=== PATIENT | female | born 1955 | race Caucasian/White ===

== ENCOUNTER → 2018-06-25 12:56 | Outpatient (CLI) | payer OTHER, SELFPAY ==
[2017-05-16 18:04] VITALS: BMI 39.7
--- NOTE | 2018-06-25 13:01 | RAD_ITS ---
STUDY: X-RAY - PARANASAL SINUSES REASON FOR EXAM: Female, 62 years old. 3 week history of sinus congestion. TECHNIQUE: 3 view(s) of the paranasal sinuses were obtained. COMPARISON: None. FINDINGS: Partial opacification of the frontal sinus worse on the right side. Partial opacification of the maxillary sinuses worse on the right side. Normal visualized facial bones. The soft tissue structures are unremarkable. RAD/Sinuses min 3 Views IMPRESSION: Bilateral frontal and maxillary sinusitis. Worse on the right side. Electronically Signed: Tim Jenkins MD at 13:19 EST Tel [phone], Service support ,
--- NOTE | 2018-06-25 13:01 | RAD_ITS ---
STUDY: X-RAY CHEST REASON FOR EXAM: Female, 62 years old. 3 week history of congestion and cold. TECHNIQUE: PA and lateral views of the chest. COMPARISON: Comparison is made with prior study dated September 11, 2010. FINDINGS: The lungs are clear and expanded. Scattered calcified granulomas. There is no demonstrated pleural abnormality. Normal size heart. Normal mediastinum and eduarda. Normal visualized pulmonary arteries. There is atherosclerotic calcification of the aortic arch with tortuosity. There are diffuse degenerative changes of the visualized thoracic spine. Normal visualized ribs, clavicles, and shoulders. Surgical clips are seen in the right upper quadrant in keeping with prior cholecystectomy. RAD/Chest PA and Lateral IMPRESSION: Scattered calcified granulomas. No acute abnormality is seen. Electronically Signed: Tim Jenkins MD at 13:20 EST Tel [phone], Service support ,
--- OUTSIDE RECORDS SUMMARY | 2018-08-20 16:42 | XMS RPT_ITS ---
:1955 Author Organization OHIP Care Team Providers Name Role Phone Kateryna Medina Attending Unavailable Kateryna Medina Referring Unavailable Adam, Kateryna Primary Care Unavailable Serge Santoyo Admitting Unavailable Serge Santoyo Attending Unavailable Serge Santoyo Referring Unavailable Adam, Kateryna Primary Care Unavailable Alan Wu Attending Unavailable Alan Wu Referring Unavailable Shawnaiff, Kateryna Primary Care Unavailable Louis Rey Attending Unavailable Louis Rey Referring Unavailable Adam, Kateryna Primary Care Unavailable Nathan Bear Attending Unavailable Srege Santoyo Referring Unavailable PROBLEMS PROBLEMS DATE TYPE CONDITION / CODE ATTENDING STATUS SOURCE Unknown R94.31 - Abnormal MoodisNathan borja Active [place] 8 electrocardiogram [facility] [ECG] [EKG] / Hospital R94.31(ICD-10) Repository Unknown R09.81 - Nasal Ran[place], Active [place] 8 congestion / [facility] R09.81(ICD-10) Hospital Repository Unknown J98.01 - Acute Ranney, Active [place] 8 bronchospasm / [facility] J98.01(ICD-10) Hospital Repository PROCEDURES PROCEDURES No Procedure Records FoundRESULTS RESULTS OPERATIVE REPORT Observed: 07/14/2018 Status: F Source: [place] 1:06 PM [facility] REPOSITORY [facility] Medical Records Department [address] [place] [address] Operative Report 07/14/18 1302 MR#: [id number] Acct: [id number] Name: MARNI PETERSON Rep #: [id number] : 1955 62 From: Serge Santoyo MD PCP: Kateryna Medina MD Status: ADM IN Location: [place] [address] Report of Operation Date of Procedure: 07/14/18 Pre-Operative Diagnosis: Left knee primary osteoarthritis Post-Operative Diagnosis: Left knee primary osteoarthritis Surgery/Procedure Performed:: Left total knee arthroplasty, press-fit cruciate retaining Description of Surgical Findings:: Stable knee with good patella tracking food sanitarian: Paulo Sykes Type of Anesthesia:: Spinal Anesthesiologist: Rodolfo Skinner Special Medications: 2 g Ancef, 1 g TXA at incision, 1 g TXA closure, 10 mg Decadron, joint cocktail (5 mg Duramorph, 30 mL of 0.5% Ropivicaine, 1000 units of epinephrine, 30 mg of Toradol) Specimen's removed: BOny cuts Estimated Blood Loss (mL): 25 Fluids Replaced: 700 milliliters crystalloid Description of Procedure: Implants used: 1. [place] size 4 press-fit triathlon cruciate retaining distal femoral component 2. Dipti size 4 press-fit tibial baseplate 3. Dipti X3 9 mm CS polyethylene 4. [place] X3 32 mm asymmetric patella Brief history operative indications: 62-year-old F with history of left knee osteoarthritis with radiographic findings with loss of joint space, osteophyte formation and subchondral sclerosis. Failed conservative measures as mentioned in the H AND P. Discussion of total knee arthroplasty as well as risk and benefits were discussed the patient including but not limited to blood loss, DVTs, PEs, neurovascular damage, general risk of anesthesia including loss of life, and stiffness or instability were discussed with patient. Patient demonstrated understanding and was able to sign informed consent. Procedure: On the date of procedure patient's left lower extremity was marked in the preoperative area. The patient was then taken back to the operating room where the patient was placed on the table in the supine position. All bony prominences were identified a well-padded. Anesthesia assumed control of the C-spine and airway and remained controlled throughout the remainder of the procedure. A tourniquet was placed on the left upper thigh and the leg was prepped in a sterile fashion. The surgeon then scrubbed at this time .Upon reentering the room left lower extremity was draped in a standard orthopedic fashion. A timeout was then called and everyone agreed upon the side, the site, the procedure to be performed, patient's identity and antibiotics given. Esmarch bandage was used to exsanguinate the extremity and the tourniquet was placed up to 250 mmHg with the knee in flexion. A midline skin incision was made and sharp dissection was taken down through skin subcutaneous tissue and fat. The standard medial parapatellar incision was made and the patella was subluxed laterally. The standard deep MCL release was done and the fat pad was resected. Next our attention was directed to the femur. Navigation pins were placed, navigation was registered. The distal femoral cutting block was pinned into place and 9 mm of distal femur resection was completed. The distal femoral cut was verified with navigation. The knee was then placed in deep flexion in the standard SemaConnect sizing guide was used to place the femoral component in 3 external rotation based on the posterior condyles. A size 4 4-in-1 cutting block was selected and pinned into place. The anterior cut was then made and checked for notching. The subsequent anterior chamfer cuts, posterior condylar cuts and posterior chamfer cuts were made while ensuring the MCL and LCL were protected. Our attention was then turned to the tibia where the TagSeats tibial cutting guide was used to make the appropriate tibial cut 90 degrees from the mechanical axis. Navigation was then used to verify the cut. A size 4 tibial base plate was selected. the knee was flexed to 90 degrees and the soft tissues and posterior osteophytes were removed from the joint. 40 cc of the periarticular injection was injected into the posterior medial corner of the joint. The appropriate trials were then placed on the femur and tibia. A trial polyethylene was trialed to ensure proper balancing and stability of the knee. Patella tracking, was then verified and corrected appropriately as needed. The appropriate tibial internal rotation was then marked with a bovie. Our attention was then directed to the patella. The patella was everted and a flat resection was made. The lug holes were drilled and the patella trial was placed. Patellar tracking was checked and deemed appropriate. Once we were happy lug holes were drilled for the femur and trial components were removed. Cement was mixed at this time and the tourniquet was let down the tibia was subluxed and pinned into place and the keel was punched and the canal was reamed. Final components were verified and opened, and cement was mixed in a vacuum. SemaConnect Simplex cement was used. The wound was copiously irrigated with normal saline. When the cement was ready the press-fit components were impacted into place starting with the tibia, femur and finally the patella cemented into place. The trial poly component was placed and the knee was placed in full extension. All excess cement was removed in the process. Once the cement had cured the tracking, alignment and balance were verified and a size 9 mm polyethylene component was placed. Once the final components were placed the wound was copiously irrigated with normal saline solution and the periarticular injection was given. The wound was closed in a layer frost fashion using #1 vicryl interrupted sutures for the arthrotomy, 2-0 interrupted Vicryl suture for the subcuticular layer and fletcher for final skin closure. A sterile compressive dressing was then placed. The patient was then awakened from anesthesia, [place] to the [place] and transferred to the PACU for recovery. Post op plan DVT ppx: ASA 81mg, thigh high compression stockings Follow up: in office in 2 weeks for wound check PT: to start POD #0 at hospital, outpatient PT should be arranged. My physician cardiovascular physician assistant was a vital part of this case. He was important in appropriate retraction during the case, and protection of soft tissues during bony cuts. His intimate knowledge of the case and my steps aided in safe and expedient completion of the procedure as well as appropriate position of the leg during the case. He was also vital in assisting with closure under my direct supervision. Grafts/Implants Used: Dipti press-fit triathlon - Complications NONE - Admit VTE Documentation VTE Present on Admission: No VTE Mechan Device Prophylaxis: SCD's, Thigh High YONNY Hose VTE Pharm Prophylaxis ordered?: Yes 07/14/18 1306 <Electronically signed by Serge Santoyo MD> Date Serge Santoyo MD CC: Kateryna Medina MD; Serge Santoyo MD Signed KNEE 1 OR 2 VIEWS Observed: 07/14/2018 Status: F Source: RANDI 7:15 AM [facility] REPOSITORY [facility] Imaging Services [address] [place] [address] Knee 1 or 2 Views MR#: [id number] Acct: [id number] Name: MARNI PETERSON Rep #: [id number] : 1955 F 62 From: Tim Jenkins MD PCP: Kateryna Medina MD Status: ADM IN Study: Knee 1 or 2 Views Date of Exam: 07/14/18 Exam# [id number] Ordering Dr: Serge Santoyo MD STUDY: X-RAY - LEFT KNEE REASON FOR EXAM: Female, 62 years old. Status post left knee replacement. TECHNIQUE: AP and lateral view(s) of the knee. COMPARISON: None. FINDINGS: The patient is status post total knee replacement. There is good alignment. Postoperative soft tissue changes. RAD/Knee 1 or 2 Views IMPRESSION: Status post total knee replacement. There is good alignment. Postoperative soft tissue changes. Electronically Signed: Tim Jenkins MD at 14:28 EST Tel [phone], Service support , CC: Kateryna Medina MD; Serge Santoyo MD Software Engineer Web Applications: Signed Observed: 07/01/2018 Status: F Source: RANDI CULTURE, NOSE 9:50 AM [facility] REPOSITORY Gram Stain Gram Stain Rare White Blood Cells No organisms seen Nasoph. Cult No Haemophilus, Streptococcus pneumoniae, beta-hemolytic Streptococcus or Staphylococcus aureus isolated. Performed By: #### M100.0900 #### [facility] [address] [facility] [place], [address] 12 LEAD ELECTROCARDIOGRAM Observed: 06/30/2018 Status: F Source: RANDI 3:26 PM [facility] REPOSITORY [facility] Cardiovascular Services [address] [place] [address] EKG - VTC 06/29/18 1140 MR#: [id number] Acct: [id number] Name: MARNI PETERSON Rep #: [id number] : 1955 62 From: Nathan Bear MD Attending Dr: Serge Santoyo MD Status: PRE IN Ordering Dr: Serge Santoyo MD Date: 06/29/18 Location: [facility] Sex: F C Admitted: Test Reason : Blood Pressure : / mmHG Vent. Rate : 075 BPM Atrial Rate : 075 BPM P-R Int : 192 ms QRS Dur : 104 ms QT Int : 372 ms P-R-T Axes : 038 -53 048 degrees QTc Int : 415 ms Normal sinus rhythm Left axis deviation Cannot exclude precordial lead misplacement Consider repeat ECG Abnormal ECG Confirmed by CHEMA MORALES, NATHAN ([id number]), assistant editor ROXANA CHATMAN ([id number]) on 06/30/2018 3:26:36 PM Referred By: Serge Santoyo Confirmed By:NATHAN BEAR MD 06/30/18 1526 Date Nathan Bear MD CC: Kateryna Medina MD; Serge Santoyo MD Date Dictated: 06/29/18 1140 Date Transcribed: 06/29/18 1140 Software Engineer Web Applications: Signed HISTORY AND PHYSICAL Observed: 06/29/2018 Status: F Source: [place] EXAM 11:30 PM [facility] REPOSITORY [facility] Medical Records Department [address] [place] [address] History and Physical 06/29/18 2330 MR#: [id number] Acct: [id number] Name: MARNI PETERSON Rep #: [id number] : 1955 62 From: Paulo Sykes PA-C PCP: Kateryna Medina MD Status: PRE IN Y Location: [facility] History and Physical DATE OF SURGERY: 07/14/2018 SCHEDULED PROCEDURE: left total knee arthroplasty HISTORY OF PRESENT ILLNESS: This is a 62-year-old female who has been having ongoing pain in her left knee for several years. Pain can reach as high as a 10/10. Her pain is constant, aching, and sharp. She has increased pain going up and down stairs, sitting for extended periods of time, and walking any amount of distance. Patient states she has difficult time with activities of daily living including leisure activity such as walking, going to [employer], crafting, going to [employer]. She has increased pain with anything that requires physical activity. Patient feels unsafe going up and down ladders. She has tried ice and elevation and heat with minimal to no relief. She has had previous corticosteroid injection with no relief in symptoms. Patient has tried physical therapy with no relief in symptoms. She has tried pediatric care coordinator without any relief. Patient has been on oral medications consisting of Tylenol with no relief in symptoms. Patient has also tried nonsteroidal anti-inflammatories without relief. Patient denies any previous surgery on her left knee. She currently denies chest pain or recent fevers. Patient has been dealing with upper respiratory illness in which she has seen her primary care physician. She has been on antibiotics with no relief in symptoms. She was currently given an prednisone injection and states she is now starting to see improvements. Her primary care physician has ordered chest x-ray and sinus x-ray. She will be following up with her primary care physician. After failing conservative measures and discussing all treatment options with Dr. Serge Santoyo, the patient would like proceed with a left total knee arthroplasty. REVIEW OF SYSTEMS: ROS: Const: Reports vision problems, denies anorexia, anxiety, change in appetite, fever and weight change,hard of hearing. CV: Denies chest pain, heart murmur, irregular heartbeat and peripheral vascular disease. Resp: Denies asthma, cough, pneumonia, sleep apnea, shortness of breath, tuberculosis and wheezing. GI: Reports constipation, diarrhea, dysphagia and heartburn, but denies nausea, bloody stools and vomiting, and difficulty swallowing. : Reports amenorrhea. Denies incontinence. Musculo: Reports trouble walking, but denies leg swelling and weakness and limp. Skin: Denies Raynaud's, history of shingles and tattoo. Neuro: Reports dizziness and numbness/tingling but denies ambulatory dysfunction and tremor. Psych: Denies anxiety, depression, insomnia, mental illness and stress. Avni/Lymph: Denies anemia, bleeding/bruising tendency and past transfusion. Reviewed, no changes. PAST MEDICAL HISTORY: Advance Care Plan: Other Directive, UNSURE WHICH SHE DID POA OR LIVING WILL Effective Date: 04/10/2018 PMH: Medical Problems: Arthritis, Fibromyalgia, High Blood Pressure, Sodgrens Syndrome Accidents: Fracture - 11-19-06 LT ANKLE, Jul 1988-sprained RT ANKLE Surgical Hx: Tubal Ligation - (1985) [place]i Gallbladder, Appendectomy Anesthesia Complications: None Assistive Devices: Glasses Reviewed and updated. 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 Personal Habits: Smoking: Patient has never smoked.Cigarette Use: Never.Smokeless Tobacco: Never Used Smokeless Tobacco.Alcohol: Occasionally.Drug Use: Denies Use.Enjoy Exercising: Exercises 1-3 x/month. Reviewed, no changes. VITALS: Ht: 65 Wt: 247lb Wt k.039 BMI: 41.1 BP: 136/84 Pulse: 86 Resp: 20 T: 95.2 T: 35.1C ALLERGIES: Codeine - Nausea MEDICATIONS: Doxepin HCL 75 mg 1 po qdAY, Amitriptyline 50 mg 1 po qdAY, Propranolol HCL 80 mg 1 by mouth every day, Metronidazole 0.75 % aad, Halobetasol Propionate 0.05 % aad PRE-OP EXAM: General appearance:NORMAL Other: Eyes: Conjunctivae and lids: NORMAL Pupils: ERR Ears, Nose, Mouth, and Throat: NORMAL Other: Inspection of lips, teeth and gums: NORMAL Other: Neck: Examination of neck: no masses noted. Respiratory: Assessment of respiratory effort: NORMAL Other: Auscultation of lungs: clear to auscultation no wheezes, rhonchi or rales. Cardiovascular: Auscultation of heart: regular rate and rhythm, no murmurs, gallops or rubs. Exam of carotid arteries: NORMAL Other: Gastrointestinal: Exam of abdomen: soft, nontender, nondistended bowel sounds present. PHYSICAL EXAMINATION: Patient does walk with an antalgic gait. She has tenderness to palpation of the medial and lateral joint line of the left knee. Left knee range of motion lacks 5 of full extension to 105 of flexion with increased pain and crepitus. Patient has partial correctable varus alignment. Sensation intact to light touch. Neurovascularly intact. IMAGING STUDIES: X-rays of the left knee revealed varus deformity with complete loss of medial joint space with subchondral sclerosis and osteophyte formation consistent with severe osteoarthritis. IMPRESSION: 1. Severe left knee osteoarthritis 2. Fibromyalgia 3. Hypertension 4. Sjogren's syndrome PLAN: Dr. Serge Santoyo did discuss and review with the patient all treatment options including surgical versus nonsurgical options. Patient does wish to proceed with the above-stated procedure. Potential risks, benefits, and complications of the procedure were discussed in detail including but not limited to , infection, nerve and blood vessel damage, persistent pain, numbness, tingling, paresthesias, blood clot, pulmonary embolism, and requirement for possible further surgery. The patient expressed full understanding and has no further questions for the doctor. Patient does agree to proceed with the above-stated procedure and has signed the surgery consent form. Patient is going to be following up with her primary care physician for surgical clearance with regards to her upper respiratory illness. She has had a recent chest x-ray and sinus x-ray. If patient is not able to get surgical clearance we will postpone surgery. This dictation was created using voice recognition software. Phonetic and/or grammatical errors may exist.. ___ I have re-examined the patient. There are no clinical changes since date of exam. ___ See progress notes for changes. ___ Dictated on admission Date: Time: Signature: 06/29/18 2330 <Electronically signed by Paulo Sykes PA-C> Date Paulo Sykes PA-C Cosigner Signature: Date (if applicable) CC: Kateryna Medina MD; Paulo PAYAN Signed CBC W/DIFF, AUTOMATED Collected: 06/29/2018 Status: F Source: [place] 11:49 AM [facility] REPOSITORY TYPE CODE TESTS RESULT OUT OF RANGE REFERENCE UNITS LAB L100.1000 4.4-11.0 K/mm3 Normal WBC 7.9 LAB L100.1200 4.2-5.4 M/mm3 Normal RBC 4.78 LAB L100.1300 12.0-15.0 g/dl Normal HGB 14.1 LAB L100.1400 37-47 % Normal HCT 43.9 LAB L100.1500 81-99 fL Normal MCV 91.8 LAB L100.1600 27.0-32.0 pg Normal MCH 29.5 LAB L100.1700 32-36 g/gl Normal MCHC 32.1 LAB L100.1810 11.6-14.6 % Normal RDW CV 12.7 LAB L100.1820 35.1-43.9 fl Normal RDW SD 43.0 LAB L100.1900 150-450 K/mm3 Normal PLT 283 LAB L100.2000 6.2-12.0 fl Normal MPV 9.6 LAB L100.2100 47-70 % Normal NEUT% 60.4 LAB L100.2200 19-41 % Normal LY% 29.5 LAB L100.2300 0-10 % Normal MONO% 8.7 LAB L100.2400 0-5 % Normal EO% 1.0 LAB L100.2500 0-1 % Normal BASO% 0.4 LAB L100.2550 0.0-0.9 % Normal IM GRAN % 0.000 Result Comment: IG% - Immature Granulocytes (promyelocytes, myelocytes and metamyelocytes) > 1% indicates that a LEFT SHIFT is Present. LAB L100.2620 2.0-7.7 X10 3/uL Normal Absolute Neut 4.8 LAB L100.2720 0.83-4.51 X10 3/ul Normal Absolute Lymph 2.34 Performed By: #### L100.0100 #### [facility] [address] [place], [address] BASIC METABOLIC Collected: 06/29/2018 Status: F Source: [place] PROFILE ([facility]) 11:49 AM [facility] REPOSITORY TYPE CODE TESTS RESULT OUT OF RANGE REFERENCE UNITS LAB L501.0100 74-106 mg/dL Normal GLU 75 Result Comment: Please note revised GLUCOSE reference range effective 2017. LAB L501.1000 7-18 mg/dL Normal BUN 15 LAB L501.1100 0.55-1.02 mg/dL Normal CREAT,SERUM 0.70 Result Comment: The validity of the calculated GFR AND GFRAA in patients over 70 years has not been determined. Clinical correlation is essential. LAB L501.1110 >60 mL/min Normal EST GFR 90 Result Comment: Non- GFR Calc LAB L501.1115 >60 mL/min Normal EST GFR - AA 108 Result Comment: GFR Calc LAB L501.1255 ml/min Normal Estimated CRCL 74.02 LAB L501.1300 10-20 RATIO High BUN/CRE 21.4 LAB L501.2200 8.5-10 mg/dL Normal .1 CA 9.4 LAB L501.5300 136-14 mmol/L Normal 5 NA 139 LAB L501.5600 3.5-5. mmol/L Normal 1 K 4.1 LAB L501.5900 98-107 mmol/L Normal CL 100 LAB L501.6100 21.0-3 mmol/L Normal 2.0 CO2 29.0 LAB L501.6200 5-15 Normal GAP 10 Performed By: #### L500.2500 #### [facility] [address] [place], [address] Observed: 06/29/2018 Status: F Source: [place] MRSA/SAID SCREEN 11:49 AM [facility] REPOSITORY MRSA/SAID SCRN S. AUREUS S. aureus Negative MRSA MRSA Negative Performed By: #### M100.651 #### [facility] [address] [place], [address] SINUSES MIN 3 VIEWS Observed: 06/25/2018 Status: F Source: [place] 1:02 PM [facility] REPOSITORY [facility] Imaging Services [address] [facility] [address] Sinuses min 3 Views MR#: [id number] Acct: [id number] Name: MARNI PETERSON Rep #: [id number] : 1955 F 62 From: Tim Jenkins MD PCP: Kateryna Medina MD Status: REG CLI Study: Sinuses min 3 Views Date of Exam: 06/25/18 Exam# [id number] Ordering Dr: Delfino Wu MD STUDY: X-RAY - PARANASAL SINUSES REASON FOR EXAM: Female, 62 years old. 3 week history of sinus congestion. TECHNIQUE: 3 view(s) of the paranasal sinuses were obtained. COMPARISON: None. FINDINGS: Partial opacification of the frontal sinus worse on the right side. Partial opacification of the maxillary sinuses worse on the right side. Normal visualized facial bones. The soft tissue structures are unremarkable. RAD/Sinuses min 3 Views IMPRESSION: Bilateral frontal and maxillary sinusitis. Worse on the right side. Electronically Signed: Tim Jenkins MD at 13:19 EST Tel [phone], Service support , CC: Kateryna Medina MD; Alan Wu MD Software Engineer Web Applications: Signed CHEST PA AND LATERAL Observed: 06/25/2018 Status: F Source: [place] 1:02 PM [facility] REPOSITORY [facility] Imaging Services [address] [place] [address] Chest PA and Lateral MR#: [id number] Acct: [id number] Name: MARNI PETERSON Rep #: [id number] : 1955 F 62 From: Tim Jenkins MD PCP: Kateryna Medina MD Status: REG CLI Study: Chest PA and Lateral Date of Exam: 06/25/18 Exam# [id number] Ordering Dr: Delfino Wu MD STUDY: X-RAY CHEST REASON FOR EXAM: Female, 62 years old. 3 week history of congestion and cold. TECHNIQUE: PA and lateral views of the chest. COMPARISON: Comparison is made with prior study dated September 11, 2010. FINDINGS: The lungs are clear and expanded. Scattered calcified granulomas. There is no demonstrated pleural abnormality. Normal size heart. Normal mediastinum and eduarda. Normal visualized pulmonary arteries. There is atherosclerotic calcification of the aortic arch with tortuosity. There are diffuse degenerative changes of the visualized thoracic spine. Normal visualized ribs, clavicles, and shoulders. Surgical clips are seen in the right upper quadrant in keeping with prior cholecystectomy. RAD/Chest PA and Lateral IMPRESSION: Scattered calcified granulomas. No acute abnormality is seen. Electronically Signed: Tim Jenkins MD at 13:20 EST Tel [phone], Service support , CC: Kateryna Medina MD; Alan Wu MD Software Engineer Web Applications: Signed SCREENING MAMM (CAD), Observed: 08/15/2017 Status: F Source: [place] BILAT 7:56 AM [facility] REPOSITORY [facility] Imaging Services [address] [place] [address] SCREENING MAMM (CAD), BILAT MR#: [id number] Acct: [id number] Name: MARNI PETERSON Rep #: [id number] : 1955 F 61 From: Tim Jenkins MD PCP: Kateryna Medina MD Status: REG CLI Study: SCREENING MAMM (CAD), BILAT Date of Exam: 08/15/17 Exam# [id number] Ordering Dr: Kateryna Medina MD MAMMOGRAPHY - BILATERAL SCREENING REASON FOR EXAM: Female, 61 years old. Routine annual screening examination. PERTINENT HISTORY: Non-contributory. TECHNIQUE: Digital bilateral breast janet (3D mammographic acquisition) in the CC and MLO projections. 2-D mediolateral oblique (MLO) and craniocaudad (CC) views of both breasts were obtained. CAD: Full Field Digital Mammography with Computer Added Detection was performed. COMPARISON: Comparison is made with prior study dated June 04, 2016 and April 04, 2015. FINDINGS: Breast Composition: The breasts are almost entirely fatty. There are no dominant masses or suspicious calcifications. Stable benign appearing bilateral axillary lymph nodes. No other significant abnormalities are identified. There has been no significant change since the prior study. HPBI/SCREENING MAMM (CAD), BILAT IMPRESSION: Stable bilateral screening mammogram. Yearly follow-up mammogram recommended. (A) ASSESSMENT CATEGORY: BIRADS Category 2: Benign. A letter regarding these results will be sent to the patient by the facility within 30 days. Approximately 10% of breast cancers are not detected by mammography. A normal mammogram should not delay biopsy of a clinically suspicious abnormality. [id number] Electronically Signed: Tim Jenkins MD at 13:15 EST Tel [phone], Service support , CC: Kateryna Medina MD Software Engineer Web Applications: Signed ALLERGIES ALLERGIES DATE TYPE / CODE NAME / CODE REACTION SEVERITY SOURCE 07/14/2018 Drug tetracaine/F CONTACT Unknown Randi [facility] Allergy/4160 [id number]([facility] 14826(SNOMED NORM) Repository CT) 07/14/2018 Drug benzocaine/F CONTACT Unknown [facility] Allergy/4160 [id number]([facility] 92665(SNOMED NORM) Repository CT) 07/14/2018 Drug procaine/F00 CONTACT Unknown [place] [facility] Allergy/4160 [id number](RXNO [facility]ERMATITIS [facility] 83719(SNOMED RM) Repository CT) 06/29/2018 Drug codeine/F006 Nausea/Vom/[facility]h [facility] 307188([facility] 08597(SNOMED M) Repository CT) ENCOUNTERS ENCOUNTERS ADMIT/DISCHARGE ACCOUNT ADMITTING ENCOUNTER LOCATION SOURCE NUMBER CLASS 07/14/2018 [id number] Natanael, Inpatient Randi [place] 9 Serge Encounter [facility] ing:NQ1Rkyi: Repository [id number]: 1 07/01/2018 [id number] Ambulatory Randi [place] 8 [facility] ing:LABSPEC Repository 06/29/2018 [id number] Ambulatory BMSBuilding:W [place] 4 [facility] Repository 06/25/2018 [id number] Ambulatory Randi Randi 2 [facility] ing:MTRAD Repository 08/15/2017 [id number] Ambulatory Randi Randi 1 [facility] ing:BI Repository PAYERS PAYERS ENCOUNTER GUARANTOR PAYER SUBSCRIBER SOURCE 07/14/2018 RADHA Stoll Randi [id number] Insurance:Darby BURK: [facility] [place]: [id number] [id number] Repository [address]Gms: 330) Date:2084-08-14PF [phone] () [id number], [place] [address]PI: 07/14/2018 Secondary NOT GIVENUNK Randi Insurance:SELF PAY [facility]: Effective Repository Date:2018-06-02 07/01/2018 RADHA Au Primary MARNI Bryan [id number] Insurance:CIGNAPolicy HENERYDOB: [place]: [id number] [id number] Repository [address]Naf: (330) Date:5445-15-99DI [phone] () [id number], [place] [address]CE: 07/01/2018 Secondary NOT GIVENUNK [place] Insurance:SELF PAY [facility] Number: Effective Repository Date:2018-07-01 06/29/2018 RADHA Au Primary MARNI Stoll [place] [id number] Insurance:CIGNAPolicy HENERYDOB: [facility] Number: [id number] [id number] Repository [address]Evl: (330) Date:7635-30-98QS [phone] () 523896MTKMSIEMSBI, [place] [address]CU: 06/29/2018 Secondary NOT GIVENUNK Randi Insurance:SELF PAY [facility] Number: Effective Repository Date:2018-06-29 06/25/2018 RADHA Au Primary MARNI Bryan [id number] Insurance:CIGNAPolicy HENERYDOB: [facility] Number: [id number] [id number] Repository [address]Vib: (330) Date:9289-33-06LP [phone] () [id number], [place] [address]BA: 06/25/2018 Secondary NOT GIVENUNK [place] Insurance:SELF PAY [facility] Number: Effective Repository Date:2018-06-25 08/15/2017 Radha Au Primary MARNI Bryan [id number] Insurance:CIGNAPolicy HENERYDOB: [facility] Number: [id number] [id number] Repository [address]Asp: Date:3869-49-86DK [phone] [id number], [place] 2 ([place]) [address]WP: 08/15/2017 Secondary NOT GIVENUNK [place] Insurance:SELF PAY [facility] Number: Effective Repository Date:2017-07-10
== END ==
PROVIDERS: Family Provider Family Medicine; PCP Family Medicine; Referring Provider Family Medicine; Visit Provider Family Medicine
DX: J98.01 Acute bronchospasm (principal); R09.81 Nasal congestion
CPT/HCPCS: 70220; 71046

== ENCOUNTER → 2018-07-01 15:39 | Outpatient (CLI) | payer OTHER, SELFPAY ==
[2018-06-29 11:11] VITALS: BMI 41.2
== END ==
PROVIDERS: Family Provider Family Medicine; PCP Family Medicine; Referring Provider Otolaryngology Otolaryngology/Facial Plastic Surgery; Visit Provider Otolaryngology Otolaryngology/Facial Plastic Surgery
DX: J32.9 Chronic sinusitis, unspecified (principal)
CPT/HCPCS: 87070; 87205

== ENCOUNTER 2018-07-14 10:10 | Inpatient (IN) | payer OTHER, SELFPAY ==
[2018-06-29 11:11] VITALS: BP 127/81; PULSE 78; RESP 16; TEMP 36.7; O2SAT 94; BMI 41.2
[2018-06-29 12:34] LABS: Absolute Lymphocyte Count 2.34 X10^3/ul (0.83-4.51); Absolute Neutrophil Count 4.8 X10^3/uL (2.0-7.7); Basophil# 0.03 X10^3/uL; Basophil% 0.4 % (0-1); Eosinophil# 0.08 X10^3/uL; Hematocrit 43.9 % (37-47); Hemoglobin 14.1 g/dl (12.0-15.0); Lymphocyte # 2.34 X10^3/ul (4.0); Lymphocyte % 29.5 % (19-41); Mean Corp Hgb Conc 32.1 g/gl (32-36); Mean Corpuscular Hgb 29.5 pg (27.0-32.0); Mean Corpuscular Volume 91.8 fL (81-99); Mean Platelet Vol. 9.6 fl (6.2-12.0); Monocyte# 0.69 X10^3/uL; Monocyte% 8.7 % (0-10); Neutrophil # 4.79 X10^3/uL (2.7-7.7); Neutrophil % 60.4 % (47-70); Platelet Count 283 K/mm3 (150-450); RBC Distribution Width CV 12.7 % (11.6-14.6); Red Blood Count 4.78 M/mm3 (4.2-5.4); White Blood Count 7.9 K/mm3 (4.4-11.0)
[2018-06-29 12:38] LABS: POSITIVE COUNT NO; POSITIVE DIFFERENTIAL NO; POSITIVE MORPHOLOGY NO
[2018-06-29 13:03] LABS: Anion Gap 10 (5-15); BUN 15 mg/dL (7-18); BUN/Creat Ratio 21.4 RATIO (10-20); Calcium,Total 9.4 mg/dL (8.5-10.1); Chloride 100 mmol/L (98-107); EST Glomerular Filtration Rate 90 mL/min (>60); Est Glom Filt Rate - Afr Amer 108 mL/min (>60); Estimated Creatinine Clearance 74.02 ml/min; Glucose 75 mg/dL (74-106); Potassium 4.1 mmol/L (3.5-5.1); Sodium Level 139 mmol/L (136-145)
--- NOTE | 2018-06-29 15:41 | SDCEKG_ITS ---
Test Reason : Blood Pressure : / mmHG Vent. Rate : 075 BPM Atrial Rate : 075 BPM P-R Int : 192 ms QRS Dur : 104 ms QT Int : 372 ms P-R-T Axes : 038 -53 048 degrees QTc Int : 415 ms Normal sinus rhythm Left axis deviation Cannot exclude precordial lead misplacement Consider repeat ECG Abnormal ECG Confirmed by CHEMA MORALES, MICHELLE ([id number]), news editor ROXANA CHATMAN ([id number]) on 06/30/2018 3:26:36 PM Referred By: Sereg Santoyo Confirmed By:MICHELLE BEAR MD
--- NOTE | 2018-06-29 23:30 | HP.PCM_ITS ---
History and Physical DATE OF SURGERY: 07/14/2018 SCHEDULED PROCEDURE: left total knee arthroplasty HISTORY OF PRESENT ILLNESS: This is a 62-year-old female who has been having ongoing pain in her left knee for several years. Pain can reach as high as a 10/10. Her pain is constant, aching, and sharp. She has increased pain going up and down stairs, sitting for extended periods of time, and walking any amount of distance. Patient states she has difficult time with activities of daily living including leisure activity such as walking, going to [employer], crafting, going to [employer]. She has increased pain with anything that requires physical activity. Patient feels unsafe going up and down ladders. She has tried ice and elevation and heat with minimal to no relief. She has had previous corticosteroid injection with no relief in symptoms. Patient has tried physical therapy with no relief in symptoms. She has tried home care consultant without any relief. Patient has been on oral medications consisting of Tylenol with no relief in symptoms. Patient has also tried nonsteroidal anti-inflammatories without relief. Patient denies any previous surgery on her left knee. She currently denies chest pain or recent fevers. Patient has been dealing with upper respiratory illness in which she has seen her primary care physician. She has been on antibiotics with no relief in symptoms. She was currently given an prednisone injection and states she is now starting to see improvements. Her primary care physician has ordered chest x-ray and sinus x-ray. She will be following up with her primary care physician. After failing conservative measures and discussing all treatment options with Dr. Serge Santoyo, the patient would like proceed with a left total knee arthroplasty. REVIEW OF SYSTEMS: ROS: Const: Reports vision problems, denies anorexia, anxiety, change in appetite, fever and weight change,hard of hearing. CV: Denies chest pain, heart murmur, irregular heartbeat and peripheral vascular disease. Resp: Denies asthma, cough, pneumonia, sleep apnea, shortness of breath, tuberculosis and wheezing. GI: Reports constipation, diarrhea, dysphagia and heartburn, but denies nausea, bloody stools and vomiting, and difficulty swallowing. : Reports amenorrhea. Denies incontinence. Musculo: Reports trouble walking, but denies leg swelling and weakness and limp. Skin: Denies Raynaud's, history of shingles and tattoo. Neuro: Reports dizziness and numbness/tingling but denies ambulatory dysfunction and tremor. Psych: Denies anxiety, depression, insomnia, mental illness and stress. Avni/Lymph: Denies anemia, bleeding/bruising tendency and past transfusion. Reviewed, no changes. PAST MEDICAL HISTORY: Advance Care Plan: Other Directive, UNSURE WHICH SHE DID POA OR LIVING WILL Effective Date: 04/10/2018 PMH: Medical Problems: Arthritis, Fibromyalgia, High Blood Pressure, Sodgrens Syndrome Accidents: Fracture - 11-19-06 LT ANKLE, Jul 1988-sprained RT ANKLE Surgical Hx: Tubal Ligation - (1985) [place] Gallbladder, Appendectomy Anesthesia Complications: None Assistive Devices: Glasses Reviewed and updated. 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 Personal Habits: Smoking: Patient has never smoked.Cigarette Use: Never.Smokeless Tobacco: Never Used Smokeless Tobacco.Alcohol: Occasionally.Drug Use: Denies Use.Enjoy Exercising: Exercises 1-3 x/month. Reviewed, no changes. VITALS: Ht: 65 Wt: 247lb Wt k.039 BMI: 41.1 BP: 136/84 Pulse: 86 Resp: 20 T: 95.2 T: 35.1C ALLERGIES: Codeine - Nausea MEDICATIONS: Doxepin HCL 75 mg 1 po qdAY, Amitriptyline 50 mg 1 po qdAY, Propranolol HCL 80 mg 1 by mouth every day, Metronidazole 0.75 % aad, Halobetasol Propionate 0.05 % aad PRE-OP EXAM: General appearance:NORMAL Other: Eyes: Conjunctivae and lids: NORMAL Pupils: ERR Ears, Nose, Mouth, and Throat: NORMAL Other: Inspection of lips, teeth and gums: NORMAL Other: Neck: Examination of neck: no masses noted. Respiratory: Assessment of respiratory effort: NORMAL Other: Auscultation of lungs: clear to auscultation no wheezes, rhonchi or rales. Cardiovascular: Auscultation of heart: regular rate and rhythm, no murmurs, gallops or rubs. Exam of carotid arteries: NORMAL Other: Gastrointestinal: Exam of abdomen: soft, nontender, nondistended bowel sounds present. PHYSICAL EXAMINATION: Patient does walk with an antalgic gait. She has tenderness to palpation of the medial and lateral joint line of the left knee. Left knee range of motion lacks 5 of full extension to 105 of flexion with increased pain and crepitus. Patient has partial correctable varus alignment. Sensation intact to light touch. Neurovascularly intact. IMAGING STUDIES: X-rays of the left knee revealed varus deformity with complete loss of medial joint space with subchondral sclerosis and osteophyte formation consistent with severe osteoarthritis. IMPRESSION: 1. Severe left knee osteoarthritis 2. Fibromyalgia 3. Hypertension 4. Sjogren's syndrome PLAN: Dr. Serge Santoyo did discuss and review with the patient all treatment options including surgical versus nonsurgical options. Patient does wish to proceed with the above-stated procedure. Potential risks, benefits, and complications of the procedure were discussed in detail including but not limited to , infection, nerve and blood vessel damage, persistent pain, numbness, tingling, paresthesias, blood clot, pulmonary embolism, and requirement for possible further surgery. The patient expressed full understanding and has no further questions for the doctor. Patient does agree to proceed with the above-stated procedure and has signed the surgery consent form. Patient is going to be following up with her primary care physician for surgical clearance with regards to her upper respiratory illness. She has had a recent chest x-ray and sinus x-ray. If patient is not able to get surgical clearance we will postpone surgery. This dictation was created using voice recognition software. Phonetic and/or grammatical errors may exist.. ___ I have re-examined the patient. There are no clinical changes since date of exam. ___ See progress notes for changes. ___ Dictated on admission Date: Time: Signature:
[2018-07-14] VITALS (11 sets, daily range): BP systolic 113–146; BP diastolic 65–97; PULSE 64–86; RESP 16–78; TEMP 36–37; O2SAT 93–98; BMI 41.2; BMI 42.5; BMI 42.6
--- NOTE | 2018-07-14 07:13 | RAD_ITS ---
STUDY: X-RAY - LEFT KNEE REASON FOR EXAM: Female, 62 years old. Status post left knee replacement. TECHNIQUE: AP and lateral view(s) of the knee. COMPARISON: None. FINDINGS: The patient is status post total knee replacement. There is good alignment. Postoperative soft tissue changes. RAD/Knee 1 or 2 Views IMPRESSION: Status post total knee replacement. There is good alignment. Postoperative soft tissue changes. Electronically Signed: Tim Jenkins MD at 14:28 EST Tel [phone], Service support ,
[2018-07-14] MEDS: Acetaminophen 500 MG Tablet 1000 MG PO ×2 (11:01→20:31)
[2018-07-14] MEDS: Celecoxib 200 MG Capsule 400 MG PO (11:01)
[2018-07-14] MEDS: Lactated Ringers 1,000 ML 999 ML IV ×2 (11:55→15:01)
[2018-07-14] MEDS: Cefazolin 2 GM in 0.9% Normal Saline 100 ML IV (12:00)
--- NOTE | 2018-07-14 13:02 | PCM.OPRPT ---
Report of Operation Date of Procedure: 07/14/18 Pre-Operative Diagnosis: Left knee primary osteoarthritis Post-Operative Diagnosis: Left knee primary osteoarthritis Surgery/Procedure Performed:: Left total knee arthroplasty, press-fit cruciate retaining Description of Surgical Findings:: Stable knee with good patella tracking associate [employer]: Paulo Sykes Type of Anesthesia:: Spinal Anesthesiologist: Rodolfo Skinner Special Medications: 2 g Ancef, 1 g TXA at incision, 1 g TXA closure, 10 mg Decadron, joint cocktail (5 mg Duramorph, 30 mL of 0.5% Ropivicaine, 1000 units of epinephrine, 30 mg of Toradol) Specimen's removed: BOny cuts Estimated Blood Loss (mL): 25 Fluids Replaced: 700 milliliters crystalloid Description of Procedure: Implants used: 1. Dipti size 4 press-fit triathlon cruciate retaining distal femoral component 2. Dipti size 4 press-fit tibial baseplate 3. Dipti X3 9 mm CS polyethylene 4. [place] X3 32 mm asymmetric patella Brief history operative indications: 62-year-old F with history of left knee osteoarthritis with radiographic findings with loss of joint space, osteophyte formation and subchondral sclerosis. Failed conservative measures as mentioned in the H&P. Discussion of total knee arthroplasty as well as risk and benefits were discussed the patient including but not limited to blood loss, DVTs, PEs, neurovascular damage, general risk of anesthesia including loss of life, and stiffness or instability were discussed with patient. Patient demonstrated understanding and was able to sign informed consent. Procedure: On the date of procedure patient's left lower extremity was marked in the preoperative area. The patient was then taken back to the operating room where the patient was placed on the table in the supine position. All bony prominences were identified a well-padded. Anesthesia assumed control of the C-spine and airway and remained controlled throughout the remainder of the procedure. A tourniquet was placed on the left upper thigh and the leg was prepped in a sterile fashion. The surgeon then scrubbed at this time .Upon reentering the room left lower extremity was draped in a standard orthopedic fashion. A timeout was then called and everyone agreed upon the side, the site, the procedure to be performed, patient's identity and antibiotics given. Esmarch bandage was used to exsanguinate the extremity and the tourniquet was placed up to 250 mmHg with the knee in flexion. A midline skin incision was made and sharp dissection was taken down through skin subcutaneous tissue and fat. The standard medial parapatellar incision was made and the patella was subluxed laterally. The standard deep MCL release was done and the fat pad was resected. Next our attention was directed to the femur. Navigation pins were placed, navigation was registered. The distal femoral cutting block was pinned into place and 9 mm of distal femur resection was completed. The distal femoral cut was verified with navigation. The knee was then placed in deep flexion in the standard [employer] sizing guide was used to place the femoral component in 3? external rotation based on the posterior condyles. A size 4 4-in-1 cutting block was selected and pinned into place. The anterior cut was then made and checked for notching. The subsequent anterior chamfer cuts, posterior condylar cuts and posterior chamfer cuts were made while ensuring the MCL and LCL were protected. Our attention was then turned to the tibia where the [employer] Simplified tibial cutting guide was used to make the appropriate tibial cut 90 degrees from the mechanical axis. Navigation was then used to verify the cut. A size 4 tibial base plate was selected. the knee was flexed to 90 degrees and the soft tissues and posterior osteophytes were removed from the joint. 40 cc of the periarticular injection was injected into the posterior medial corner of the joint. The appropriate trials were then placed on the femur and tibia. A trial polyethylene was trialed to ensure proper balancing and stability of the knee. Patella tracking, was then verified and corrected appropriately as needed. The appropriate tibial internal rotation was then marked with a bovie. Our attention was then directed to the patella. The patella was everted and a flat resection was made. The lug holes were drilled and the patella trial was placed. Patellar tracking was checked and deemed appropriate. Once we were happy lug holes were drilled for the femur and trial components were removed. Cement was mixed at this time and the tourniquet was let down the tibia was subluxed and pinned into place and the keel was punched and the canal was reamed. Final components were verified and opened, and cement was mixed in a vacuum. [place] Simplex cement was used. The wound was copiously irrigated with normal saline. When the cement was ready the press-fit components were impacted into place starting with the tibia, femur and finally the patella cemented into place. The trial poly component was placed and the knee was placed in full extension. All excess cement was removed in the process. Once the cement had cured the tracking, alignment and balance were verified and a size 9 mm polyethylene component was placed. Once the final components were placed the wound was copiously irrigated with normal saline solution and the periarticular injection was given. The wound was closed in a layer frost fashion using #1 vicryl interrupted sutures for the arthrotomy, 2-0 interrupted Vicryl suture for the subcuticular layer and fletcher for final skin closure. A sterile compressive dressing was then placed. The patient was then awakened from anesthesia, transferred to the [place] and transferred to the PACU for recovery. Post op plan DVT ppx: ASA 81mg, thigh high compression stockings Follow up: in office in 2 weeks for wound check PT: to start POD #0 at hospital, outpatient PT should be arranged. My physician team assistant was a vital part of this case. He was important in appropriate retraction during the case, and protection of soft tissues during bony cuts. His intimate knowledge of the case and my steps aided in safe and expedient completion of the procedure as well as appropriate position of the leg during the case. He was also vital in assisting with closure under my direct supervision. Grafts/Implants Used: [place] press-fit triathlon - Complications NONE - Admit VTE Documentation VTE Present on Admission: No VTE Mechan Device Prophylaxis: SCD's, Thigh High YONNY Hose VTE Pharm Prophylaxis ordered?: Yes
--- NOTE | 2018-07-14 13:06 | OP.PCM_ITS ---
Report of Operation Date of Procedure: 07/14/18 Pre-Operative Diagnosis: Left knee primary osteoarthritis Post-Operative Diagnosis: Left knee primary osteoarthritis Surgery/Procedure Performed:: Left total knee arthroplasty, press-fit cruciate retaining Description of Surgical Findings:: Stable knee with good patella tracking supervisor [employer]: Paulo Sykes Type of Anesthesia:: Spinal Anesthesiologist: Rodolfo Skinner Special Medications: 2 g Ancef, 1 g TXA at incision, 1 g TXA closure, 10 mg Decadron, joint cocktail (5 mg Duramorph, 30 mL of 0.5% Ropivicaine, 1000 units of epinephrine, 30 mg of Toradol) Specimen's removed: BOny cuts Estimated Blood Loss (mL): 25 Fluids Replaced: 700 milliliters crystalloid Description of Procedure: Implants used: 1. Dipti size 4 press-fit triathlon cruciate retaining distal femoral component 2. Dipti size 4 press-fit tibial baseplate 3. Dipti X3 9 mm CS polyethylene 4. [place] X3 32 mm asymmetric patella Brief history operative indications: 62-year-old F with history of left knee osteoarthritis with radiographic findings with loss of joint space, osteophyte formation and subchondral sclerosis. Failed conservative measures as mentioned in the H&P. Discussion of total knee arthroplasty as well as risk and benefits were discussed the patient including but not limited to blood loss, DVTs, PEs, neurovascular damage, general risk of anesthesia including loss of life, and stiffness or instability were discussed with patient. Patient demonstrated understanding and was able to sign informed consent. Procedure: On the date of procedure patient's left lower extremity was marked in the preoperative area. The patient was then taken back to the operating room where the patient was placed on the table in the supine position. All bony prominences were identified a well-padded. Anesthesia assumed control of the C-spine and airway and remained controlled throughout the remainder of the procedure. A tourniquet was placed on the left upper thigh and the leg was prepped in a sterile fashion. The surgeon then scrubbed at this time .Upon reentering the room left lower extremity was draped in a standard orthopedic fashion. A timeout was then called and everyone agreed upon the side, the site, the procedure to be performed, patient's identity and antibiotics given. Esmarch bandage was used to exsanguinate the extremity and the tourniquet was placed up to 250 mmHg with the knee in flexion. A midline skin incision was made and sharp dissection was taken down through skin subcutaneous tissue and fat. The standard medial parapatellar incision was made and the patella was subluxed laterally. The standard deep MCL release was done and the fat pad was resected. Next our attention was directed to the femur. Navigation pins were placed, navigation was registered. The distal femoral cutting block was pinned into place and 9 mm of distal femur resection was completed. The distal femoral cut was verified with navigation. The knee was then placed in deep flexion in the standard [employer] sizing guide was used to place the femoral component in 3? external rotation based on the posterior condyles. A size 4 4-in-1 cutting block was selected and pinned into place. The anterior cut was then made and checked for notching. The subsequent anterior chamfer cuts, posterior condylar cuts and posterior chamfer cuts were made while ensuring the MCL and LCL were protected. Our attention was then turned to the tibia where the [employer] tibial cutting guide was used to make the appropriate tibial cut 90 degrees from the mechanical axis. Navigation was then used to verify the cut. A size 4 tibial base plate was selected. the knee was flexed to 90 degrees and the soft tissues and posterior osteophytes were removed from the joint. 40 cc of the periarticular injection was injected into the posterior medial corner of the joint. The appropriate trials were then placed on the femur and tibia. A trial polyethylene was trialed to ensure proper balancing and stability of the knee. Patella tracking, was then verified and corrected appropriately as needed. The appropriate tibial internal rotation was then marked with a bovie. Our attention was then directed to the patella. The patella was everted and a flat resection was made. The lug holes were drilled and the patella trial was placed. Patellar tracking was checked and deemed appropriate. Once we were happy lug holes were drilled for the femur and trial components were removed. Cement was mixed at this time and the tourniquet was let down the tibia was subluxed and pinned into place and the keel was punched and the canal was reamed. Final components were verified and opened, and cement was mixed in a vacuum. [place] Simplex cement was used. The wound was copiously irrigated with normal saline. When the cement was ready the press-fit components were impacted into place starting with the tibia, femur and finally the patella cemented into place. The trial poly component was placed and the knee was placed in full extension. All excess cement was removed in the process. Once the cement had cured the tracking, alignment and balance were verified and a size 9 mm polyethylene component was placed. Once the final components were placed the wound was copiously irrigated with normal saline solution and the periarticular injection was given. The wound was closed in a layer frost fashion using #1 vicryl interrupted sutures for the arthrotomy, 2-0 interrupted Vicryl suture for the subcuticular layer and fletcher for final skin closure. A sterile compressive dressing was then placed. The patient was then awakened from anesthesia, transferred to the [place] and transferred to the PACU for recovery. Post op plan DVT ppx: ASA 81mg, thigh high compression stockings Follow up: in office in 2 weeks for wound check PT: to start POD #0 at hospital, outpatient PT should be arranged. My physician assistant front office manager was a vital part of this case. He was important in appropriate retraction during the case, and protection of soft tissues during bony cuts. His intimate knowledge of the case and my steps aided in safe and expedient completion of the procedure as well as appropriate position of the leg during the case. He was also vital in assisting with closure under my direct supervision. Grafts/Implants Used: [place] press-fit triathlon - Complications NONE - Admit VTE Documentation VTE Present on Admission: No VTE Mechan Device Prophylaxis: SCD's, Thigh High YONNY Hose VTE Pharm Prophylaxis ordered?: Yes
[2018-07-14] MEDS: Scopolamine 1mg/72hr Patch 1 PATCH TD (14:54)
[2018-07-14] MEDS: Morphine 2 MG/ML Syringe IV (16:01)
[2018-07-14] MEDS: Ondansetron 4 MG/2 ML Vial IV (16:02)
[2018-07-14] MEDS: Lactated Ringers 1,000 ML 125 ML IV (16:05)
[2018-07-14] MEDS: Ketorolac 15 MG/ML Vial IV (18:41)
[2018-07-14] MEDS: oxyCODONE 5 MG Tablet PO (18:41)
[2018-07-14] MEDS: Cefazolin 1 GM/50 ML BAG IV (20:27)
[2018-07-14] MEDS: Amitriptyline 25 MG Tablet 75 MG PO (20:29)
[2018-07-14] MEDS: Propranolol LA 80 MG Capsule PO (20:29)
[2018-07-14] MEDS: Senna/Docusate Sodium 1 Tablet 2 TABLET PO (20:30)
[2018-07-14] MEDS: Doxepin Hcl 25 MG Capsule 75 MG PO (20:31)
[2018-07-15] MEDS: oxyCODONE 5 MG Tablet PO ×5 (02:01→22:07)
[2018-07-15] MEDS: 0.9% NaCl Peripheral Flush Adult/Peds IV ×2 (02:01→08:03)
[2018-07-15] MEDS: Ketorolac 15 MG/ML Vial IV ×2 (02:01→08:03)
[2018-07-15 02:06] VITALS: BP 120/66; PULSE 67; RESP 18; TEMP 36.4; O2SAT 98
[2018-07-15] MEDS: Cefazolin 1 GM/50 ML BAG IV (04:59)
[2018-07-15] MEDS: Acetaminophen 500 MG Tablet 1000 MG PO ×3 (05:10→22:07)
[2018-07-15 06:24] LABS: Hematocrit 36.4 % (37-47); Hemoglobin 11.5 g/dl (12.0-15.0); Mean Corp Hgb Conc 31.6 g/gl (32-36); Mean Corpuscular Hgb 29.9 pg (27.0-32.0); Mean Corpuscular Volume 94.8 fL (81-99); Mean Platelet Vol. 10.3 fl (6.2-12.0); Platelet Count 187 K/mm3 (150-450); RBC Distribution Width CV 12.4 % (11.6-14.6); Red Blood Count 3.84 M/mm3 (4.2-5.4); White Blood Count 7.7 K/mm3 (4.4-11.0)
[2018-07-15 06:32] LABS: Scan Indicated on CBC? Y/N NO
[2018-07-15 06:40] LABS: Anion Gap 7 (5-15); BUN 17 mg/dL (7-18); BUN/Creat Ratio 23.8 RATIO (10-20); Calcium,Total 8.2 mg/dL (8.5-10.1); Chloride 102 mmol/L (98-107); Creatinine, Serum 0.71 mg/dL (0.55-1.02); EST Glomerular Filtration Rate 88 mL/min (>60); Est Glom Filt Rate - Afr Amer 106 mL/min (>60); Estimated Creatinine Clearance 72.98 ml/min; Glucose 105 mg/dL (74-106); Potassium 4.2 mmol/L (3.5-5.1); Sodium Level 138 mmol/L (136-145)
--- NOTE | 2018-07-15 07:14 | PCM.PN.ORT ---
Subjective: The patient was sitting in bed upon examination. Patient denies any chest pain, shortness of breath, dizziness, lightheadedness, nausea or vomiting, or calf pain. Pain is controlled on medications. No adverse overnight events. Patient currently is complaining of pain in the left knee. Objective: Vital signs stable and afebrile. Patient is able to plantarflex and dorsiflex actively. Sensation is intact to light touch to saphenous, sural, superficial and deep peroneal, and tibial distribution. Dressing is clean dry and intact. Negative Homans bilaterally, negative signs and symptoms of DVT. - Physical Exam General: Alert, Oriented x3, Cooperative, No apparent distress Vital Signs Temp Pulse Resp BP Pulse Ox 97.6 F L 67 18 120/66 98 07/15/18 02:06 07/15/18 02:06 07/15/18 02:06 07/15/18 02:06 07/15/18 02:06 Oxygen Delivery Method Room Air Weight: 116 kg Body Mass Index (BMI) 42.5 Intake and Output for Last 24 Hours 07/13/18 07/14/18 07/15/18 23:59 23:59 23:59 Intake Total 2953 / 2953 1675 / 1675 Output Total 600 / 600 Balance 2953 / 2953 1075 / 1075 Laboratory Tests Past 24 Hrs 07/15/18 07/15/18 05:34 05:34 WBC 7.7 RBC 3.84 L Hgb 11.5 L Hct 36.4 L MCV 94.8 MCH 29.9 MCHC 31.6 L RDW 12.4 RDW Differential 42.0 Plt Count 187 MPV 10.3 Sodium 138 Potassium 4.2 Chloride 102 Carbon Dioxide 29.0 Anion Gap 7 BUN 17 Creatinine 0.71 Estim Creat Clear Calc 72.98 Est GFR (MDRD) Af Amer 106 Est GFR (MDRD) Non-Af 88 BUN/Creatinine Ratio 23.8 H Glucose 105 Calcium 8.2 L Medical Necessity - Tobacco Use Smoking Status: Never smoker Assessment/Plan 1. S/P left total knee arthroplasty POD #1 2. Continue Pain Medications: Tylenol and OxyIR 3. DVT Prophylaxis: Aspirin 81 mg twice daily with food for 4 weeks postoperatively 4. PT/OT: Weightbearing as tolerated 5. H & H: 11.5/36.4, asymptomatic 6. Encouraged Incentive Spirometry 7. Disposition: Plan will be for discharge home tomorrow.
[2018-07-15 08:00] VITALS: PULSE 70
[2018-07-15] MEDS: Meloxicam 7.5 MG Tablet PO ×2 (08:02→22:07)
[2018-07-15] MEDS: Famotidine 20 MG Tablet PO (08:02)
[2018-07-15] MEDS: Aspirin 81 MG TAB.CHEW PO ×2 (08:02→16:36)
[2018-07-15] MEDS: Senna/Docusate Sodium 1 Tablet 2 TABLET PO ×2 (08:02→22:07)
[2018-07-15 08:10] VITALS: BP 110/68; PULSE 70; RESP 18; TEMP 36.8; O2SAT 100
--- NOTE | 2018-07-15 10:55 | CASEMGMT ---
YADI DUENAS Face to Face with patient for initial transition planning/care coordination assessment. RN YULISSA introduced self and role at [facility]. Patient sitting in chair, alert and oriented, daughter at bedside. Patient willing to participate in assessment and is able to answer all questions appropriately. Care providers, pharmacy, and demographics verified. Patient wishes to discharge home, and is setup with [facility] for outpatient therapy. Patient states she has no further needs or concerns at this time. CM to follow for discharge planning needs that may arise. PCP: Adam Specialists: Yes Preferred Pharmacy: [facility] Insurance: [employer] Prescription Benefit: [employer] Living Will/HPOA: Yes, LNOK: , Daughter Living Arrangements: Patient lives with in 1 story home Transportation: DME/HHC: Patient has walker at home. Disposition Plan: Patient to discharge with outpatient therapy, family support, and follow-up plans in place. Kerrie SANTAMARIA, RN, CM
[2018-07-15 13:35] VITALS: PULSE 78
[2018-07-15 13:44] VITALS: BP 130/77; PULSE 78; RESP 18; TEMP 36.7; O2SAT 94
[2018-07-15 21:53] VITALS: BP 139/71; PULSE 88; RESP 18; TEMP 37.1; O2SAT 96
[2018-07-15] MEDS: Doxepin Hcl 25 MG Capsule 75 MG PO (22:07)
[2018-07-15] MEDS: Amitriptyline 25 MG Tablet 75 MG PO (22:07)
[2018-07-15] MEDS: Propranolol LA 80 MG Capsule PO (22:07)
[2018-07-16 02:59] VITALS: BP 126/66; PULSE 76; RESP 18; TEMP 37.1; O2SAT 96
[2018-07-16] MEDS: oxyCODONE 5 MG Tablet PO ×2 (04:10→09:34)
[2018-07-16] MEDS: Acetaminophen 500 MG Tablet 1000 MG PO ×2 (05:09→14:09)
[2018-07-16 06:47] LABS: Hematocrit 39.6 % (37-47); Hemoglobin 12.7 g/dl (12.0-15.0); Mean Corp Hgb Conc 32.1 g/gl (32-36); Mean Corpuscular Hgb 30.2 pg (27.0-32.0); Mean Corpuscular Volume 94.3 fL (81-99); Mean Platelet Vol. 9.6 fl (6.2-12.0); Platelet Count 184 K/mm3 (150-450); RBC Distribution Width CV 12.7 % (11.6-14.6); RBC Distribution Width SD 43.7 fl (35.1-43.9); White Blood Count 9.4 K/mm3 (4.4-11.0)
[2018-07-16 06:56] LABS: Scan Indicated on CBC? Y/N NO
--- NOTE | 2018-07-16 09:12 | PCM.PN.ORT ---
Subjective: The patient was sitting in bedside chair upon examination. Patient denies any chest pain, shortness of breath, dizziness, lightheadedness, nausea or vomiting, or calf pain. Pain is controlled on medications. No adverse overnight events. Patient does have pain in her left knee but is controlled on medications. Patient has tolerated physical therapy. Plan is for discharge home today. Patient has scheduled outpatient physical therapy getting tomorrow. Objective: Vital signs stable and afebrile. Patient is able to plantarflex and dorsiflex actively. Sensation is intact to light touch to saphenous, sural, superficial and deep peroneal, and tibial distribution. Dressing is clean dry and intact. Negative Homans bilaterally, negative signs and symptoms of DVT. - Physical Exam General: Alert, Oriented x3, Cooperative, No apparent distress Vital Signs Temp Pulse Resp BP Pulse Ox 98.7 F 76 18 126/66 H 96 07/16/18 02:59 07/16/18 02:59 07/16/18 02:59 07/16/18 02:59 07/16/18 02:59 Oxygen Delivery Method Room Air Weight: 116 kg Body Mass Index (BMI) 42.5 Intake and Output for Last 24 Hours 07/14/18 07/15/18 07/16/18 23:59 23:59 23:59 Intake Total 2953 / 2953 1675 / 1675 360 / 360 Output Total 600 / 600 Balance 2953 / 2953 1075 / 1075 360 / 360 Laboratory Tests Past 24 Hrs 07/16/18 06:26 WBC 9.4 RBC 4.20 Hgb 12.7 Hct 39.6 MCV 94.3 MCH 30.2 MCHC 32.1 RDW 12.7 RDW Differential 43.7 Plt Count 184 MPV 9.6 Medical Necessity - Tobacco Use Smoking Status: Never smoker Assessment/Plan 1. S/P left total knee arthroplasty POD #2 2. Continue Pain Medications: Tylenol and OxyIR 3. DVT Prophylaxis: Aspirin 81 mg twice daily with food for 4 weeks postoperatively 4. PT/OT: Weightbearing as tolerated 5. H & H: 12.7/39.6, asymptomatic 6. Encouraged Incentive Spirometry 7. Disposition: Orthopedically stable, plan is for discharge home today. Patient will continue with physical therapy outpatient beginning tomorrow. Prescriptions will be E scribed to [facility] pharmacy. Patient will follow-up per postop instructions.
--- NOTE | 2018-07-16 09:21 | DCINST_ITS ---
Discharge Diet: No Restrictions Discharge Activity: May Not Drive May shower in (days): 1 - Turned dressing away from water Ice area for (Minutes): 20 - every hour while awake. Weight Bearing Status: Weight bearing as tolerated Elevate: Operative Extremity Additional Activity Instructions:: Wear elastic stockings for 2 weeks after your surgery. Call your doctor if your incision/area has: Continuous Slow Oozing, Sudden Increased Bleeding, Increased Pain/ Swelling, Increased Redness, Foul Smelling Discharge Call your doctor if you observe: Fever of 101 or Higher, Coldness, Increased Pain, Numbness or Tingling, Change in Color, Calf discomfort, Uncontrolled pain Remove Dressing in (days):: 3 - Okay to remove dressing on July 19, 2018 Additional Instructions: Follow [place] [facility] postop instructions Allergies/Adverse Reactions: Allergies benzocaine Adverse Reaction (Verified 07/14/18 11:16) CONTACT DERMATITIS codeine Adverse Reaction (Verified 06/29/18 11:10) Nausea/Vom/Diarrhea procaine Adverse Reaction (Verified 07/14/18 11:16) CONTACT DERMATITIS tetracaine Adverse Reaction (Verified 07/14/18 11:16) CONTACT DERMATITIS Medications to take at Discharge Amitriptyline HCl 75 mg PO QHS 05/16/17 Doxepin HCl 75 mg PO QHS 05/16/17 Propranolol HCl [Inderal LA (Beta Liliana)] 80 mg PO QHS 05/16/17 Metronidazole [Metrogel Topical] 1 applic TOPICAL DAILY 06/29/18 Acetaminophen [Tylenol] 1,000 mg PO Q8 #90 tablet 07/16/18 Aspirin [Aspirin, Baby] 81 mg PO BIDCM #60 tab.chew 07/16/18 Famotidine [Pepcid] 20 mg PO DAILY #30 tablet 07/16/18 Meloxicam [Mobic] 7.5 mg PO BID #60 tablet 07/16/18 Oxycodone [Oxyir] 5 - 10 mg PO Q4H PRN PRN 5 Days #60 tablet 07/16/18 Senna/Docusate Sodium [Senokot-S] 2 tablet PO BID #20 tablet 07/16/18 The following prescriptions were given: Oxycodone [Oxyir] 5 - 10 mg PO Q4H PRN PRN 5 Days #60 tablet PRN Reason: Mod-Severe Pain (-10/10) Acetaminophen [Tylenol] 1,000 mg PO Q8 #90 tablet Famotidine [Pepcid] 20 mg PO DAILY #30 tablet Aspirin [Aspirin, Baby] 81 mg PO BIDCM #60 tab.chew Meloxicam [Mobic] 7.5 mg PO BID #60 tablet Senna/Docusate Sodium [Senokot-S] 2 tablet PO BID #20 tablet Primary Care Physician: Kateryna Medina MD [Primary Care Provider] - Test Results: Test results from this visit will be discussed in further detail at your follow- up appointment, if applicable. Please Follow Up With: [facility] When: 07/17/18 @ 4:00 pm Please Follow Up With: Paulo Sykes PA-C When: 07/27/18 @ 1:15 am
[2018-07-16] MEDS: Aspirin 81 MG TAB.CHEW PO (09:34)
[2018-07-16] MEDS: Meloxicam 7.5 MG Tablet PO (09:35)
[2018-07-16] MEDS: Senna/Docusate Sodium 1 Tablet 2 TABLET PO (09:35)
[2018-07-16] MEDS: Famotidine 20 MG Tablet PO (09:35)
[2018-07-16 09:38] VITALS: BP 136/63; PULSE 89; RESP 16; TEMP 36.3; O2SAT 94
--- NOTE | 2018-07-16 13:24 | NURSING ---
primary clinician brought yellow pill to this nurse stating was found on the floor, using clinical pharmacology pill identifier was identified as meloxicam 7.5mg primary RN informed of above and pill wasted.
[2018-07-16 14:03] VITALS: BP 146/56; PULSE 89; RESP 16; TEMP 37.2; O2SAT 94
--- OUTSIDE RECORDS SUMMARY | 2018-10-15 17:31 | XMS RPT_ITS ---
:1955 Author Organization OH[facility] Care Team Providers Name Role Phone Paulo Sykes PA-C Attending Unavailable Paulo Sykes PA-C Referring Unavailable Shawnaiff, Kateryna Primary Care Unavailable Serge Santoyo Admitting Unavailable Serge Santoyo Attending Unavailable Serge Santoyo Referring Unavailable Jolliff, Kateryna Primary Care Unavailable Alan Wu Attending Unavailable Alan Wu Referring Unavailable Jolliff, Kateryna Primary Care Unavailable Louis Rey Attending Unavailable Louis Rey Referring Unavailable Jolliff, Kateryna Primary Care Unavailable Nathan Bear Attending Unavailable Serge Santoyo Referring Unavailable PROBLEMS PROBLEMS DATE TYPE CONDITION / CODE ATTENDING STATUS SOURCE Unknown Z96.652 - Presence of Serge Santoyo Active [place] 8 left artificial knee [facility] joint / Hospital Z96.652(ICD-10) Repository Unknown R94.31 - Abnormal MoodisNathan borja Active [place] 8 electrocardiogram [facility] [ECG] [EKG] / Hospital R94.31(ICD-10) Repository Unknown R09.81 - Nasal Ranney, Active [place] 8 congestion / Christopher [facility] R09.81(ICD-10) Hospital Repository Unknown J98.01 - Acute Ranney, Active [place] 8 bronchospasm / Christopher [facility] J98.01(ICD-10) Hospital Repository PROCEDURES PROCEDURES No Procedure Records FoundRESULTS RESULTS VENOUS DUPLEX LOWER Observed: 07/27/2018 Status: F Source: [place] EXTREMITY 8:09 PM [facility] REPOSITORY [facility] Cardiovascular Services [address] [place] [address] Venous Duplex US, Unilateral 07/27/18 1416 MR#: [id number] Acct: [id number] Name: MARNI PETERSON Rep #: [id number] : 1955 62 From: Bowen Vazquez MD Attending Dr: Paulo Vega Status: REG CLI Ordering Dr: Paulo Sykes PA-C Date: 07/27/18 Location: [facility] Sex: F C Admitted: Reason For Study: Pain LLE RIGHT LEFT CFV is compressible, spontaneous, phasic, GSV is normal. competent and demonstrates normal CFV is compressible, spontaneous, phasic, augmentation. competent, and demonstrates normal Procedure augmentation. Exam performed in department. FV is compressible, spontaneous, phasic, A preliminary report was called and/or faxed competent and demonstrates normal to Paulo PAYAN. augmentation. POP V is compressible, spontaneous, phasic, competent and demonstrates normal augmentation. T/P Trunk is compressible. PTV is compressible. LT PerV is compressible. Interpretation Summary Deep veins of the left lower extremity are patent and compressible segmentally. There is no evidence of left lower extremity deep vein thrombosis. Valvular competence appears intact within the proximal deep venous system on the left . The left greater saphenous vein appears patent and compressible segmentally. Ordering Physician: Paulo Sykes Referring Physician: Kateryna Medina Performed By: Jose Canales, ESPINOZA, RVT 07/27/182008 Date Bowen Vazquez MD CC: Kateryna Medina MD; Paulo PAYAN Date Dictated: 07/27/18 1416 Date Transcribed: 07/27/182008 Retail Asset Protection Specialist: Signed DISCHARGE INSTRUCTION Observed: 07/16/2018 Status: F Source: [place] 9:21 AM [facility] REPOSITORY [facility] Medical Records Department [address] [place] [address] Instructions for Home/Discharge Instructions 07/16/18917 MR#: [id number] Acct: [id number] Name: MARNI PETERSON Rep #: [id number] : 1955 62 From: Paulo Sykes PA-C PCP: Kateryna Medina MD Status: ADM IN Discharge Diet: No Restrictions Discharge Activity: May Not Drive May shower in (days): 1 - Turned dressing away from water Ice area for (Minutes): 20 - every hour while awake. Weight Bearing Status: Weight bearing as tolerated Elevate: Operative Extremity Additional Activity Instructions:: Wear elastic stockings for 2 weeks after your surgery. Call your doctor if your incision/area has: Continuous Slow Oozing, Sudden Increased Bleeding, Increased Pain/ Swelling, Increased Redness, Foul Smelling Discharge Call your doctor if you observe: Fever of 101 or Higher, Coldness, Increased Pain, Numbness or Tingling, Change in Color, Calf discomfort, Uncontrolled pain Remove Dressing in (days):: 3 - Okay to remove dressing on July 19, 2018 Additional Instructions: Follow [place] [facility] postop instructions Allergies/Adverse Reactions: Allergies benzocaine Adverse Reaction (Verified 07/14/18 11:16) CONTACT DERMATITIS codeine Adverse Reaction (Verified 06/29/18 11:10) Nausea/Vom/Diarrhea procaine Adverse Reaction (Verified 07/14/18 11:16) CONTACT DERMATITIS tetracaine Adverse Reaction (Verified 07/14/18 11:16) CONTACT DERMATITIS Medications to take at Discharge Amitriptyline HCl 75 mg PO QHS 05/16/17 Doxepin HCl 75 mg PO QHS 05/16/17 Propranolol HCl [Inderal LA (Beta Liliana)] 80 mg PO QHS 05/16/17 Metronidazole [Metrogel Topical] 1 applic TOPICAL DAILY 06/29/18 Acetaminophen [Tylenol] 1,000 mg PO Q8 #90 tablet 07/16/18 Aspirin [Aspirin, Baby] 81 mg PO BIDCM #60 tab.chew 07/16/18 Famotidine [Pepcid] 20 mg PO DAILY #30 tablet 07/16/18 Meloxicam [Mobic] 7.5 mg PO BID #60 tablet 07/16/18 Oxycodone [Oxyir] 5 - 10 mg PO Q4H PRN PRN 5 Days #60 tablet 07/16/18 Senna/Docusate Sodium [Senokot-S] 2 tablet PO BID #20 tablet 07/16/18 The following prescriptions were given: Oxycodone [Oxyir] 5 - 10 mg PO Q4H PRN PRN 5 Days #60 tablet PRN Reason: Mod-Severe Pain (4-10) Acetaminophen [Tylenol] 1,000 mg PO Q8 #90 tablet Famotidine [Pepcid] 20 mg PO DAILY #30 tablet Aspirin [Aspirin, Baby] 81 mg PO BIDCM #60 tab.chew Meloxicam [Mobic] 7.5 mg PO BID #60 tablet Senna/Docusate Sodium [Senokot-S] 2 tablet PO BID #20 tablet Primary Care Physician: Kateryna Medina MD [Primary Care Provider] - Test Results: Test results from this visit will be discussed in further detail at your follow-up appointment, if applicable. Please Follow Up With: [place] [facility] When: 07/17/18 @ 4:00 pm Please Follow Up With: Paulo Sykes PA-C When: 07/27/18 @ 1:15 am 07/16/18 0921 <Electronically signed by Paulo Sykes PA-C> Date Paulo Sykes PA-C CC: Kateryna Medina MD CBC-COMPLETE BLOOD CNT Collected: 07/16/2018 Status: F Source: [place] NO DIFF 6:26 AM [facility] REPOSITORY TYPE CODE TESTS RESULT OUT OF RANGE REFERENCE UNITS LAB L100.1000 4.4-11.0 K/mm3 Normal WBC 9.4 LAB L100.1200 4.2-5.4 M/mm3 Normal RBC 4.20 LAB L100.1300 12.0-15.0 g/dl Normal HGB 12.7 LAB L100.1400 37-47 % Normal HCT 39.6 LAB L100.1500 81-99 fL Normal MCV 94.3 LAB L100.1600 27.0-32.0 pg Normal MCH 30.2 LAB L100.1700 32-36 g/gl Normal MCHC 32.1 LAB L100.1810 11.6-14.6 % Normal RDW CV 12.7 LAB L100.1820 35.1-43.9 fl Normal RDW SD 43.7 LAB L100.1900 150-450 K/mm3 Normal PLT 184 LAB L100.2000 6.2-12.0 fl Normal MPV 9.6 Performed By: #### L100.0500 #### [facility] [address] [place], [place], [address] CBC-COMPLETE BLOOD CNT Collected: 07/15/2018 Status: F Source: [place] NO DIFF 5:34 AM [facility] REPOSITORY TYPE CODE TESTS RESULT OUT OF RANGE REFERENCE UNITS LAB L100.1000 4.4-11.0 K/mm3 Normal WBC 7.7 LAB L100.1200 4.2-5.4 M/mm3 Low RBC 3.84 LAB L100.1300 12.0-15.0 g/dl Low HGB 11.5 LAB L100.1400 37-47 % Low HCT 36.4 LAB L100.1500 81-99 fL Normal MCV 94.8 LAB L100.1600 27.0-32.0 pg Normal MCH 29.9 LAB L100.1700 32-36 g/gl Low MCHC 31.6 LAB L100.1810 11.6-14.6 % Normal RDW CV 12.4 LAB L100.1820 35.1-43.9 fl Normal RDW SD 42.0 LAB L100.1900 150-450 K/mm3 Normal PLT 187 LAB L100.2000 6.2-12.0 fl Normal MPV 10.3 Performed By: #### L100.0500 #### [facility] [address] [place], [address] BASIC METABOLIC Collected: 07/15/2018 Status: F Source: [place] PROFILE (BMP) 5:34 AM [facility] REPOSITORY TYPE CODE TESTS RESULT OUT OF RANGE REFERENCE UNITS LAB L501.0100 74-106 mg/dL Normal GLU 105 Result Comment: Fasting Glucose result from 100 to 125 mg/dL suggests IMPAIRED HOMEOSTASIS per A.D.A. criteria. Please note revised GLUCOSE reference range effective 2017. LAB L501.1000 7-18 mg/dL Normal BUN 17 LAB L501.1100 0.55-1.02 mg/dL Normal CREAT,SERUM 0.71 Result Comment: The validity of the calculated GFR AND GFRAA in patients over 70 years has not been determined. Clinical correlation is essential. LAB L501.1110 >60 mL/min Normal EST GFR 88 Result Comment: Non- GFR Calc LAB L501.1115 >60 mL/min Normal EST GFR - AA 106 Result Comment: GFR Calc LAB L501.1255 ml/min Normal Estimated CRCL 72.98 LAB L501.1300 10-20 RATIO High BUN/CRE 23.8 LAB L501.2200 8.5-10 mg/dL Low .1 CA 8.2 LAB L501.5300 136-14 mmol/L Normal 5 NA 138 LAB L501.5600 3.5-5. mmol/L Normal 1 K 4.2 LAB L501.5900 98-107 mmol/L Normal CL 102 LAB L501.6100 21.0-3 mmol/L Normal 2.0 CO2 29.0 LAB L501.6200 5-15 Normal GAP 7 Performed By: #### L500.2500 #### [facility] [address] [place], [address] OPERATIVE REPORT Observed: 07/14/2018 Status: F Source: [place] 1:06 PM [facility] REPOSITORY [facility] Medical Records Department [address] [place] [address] Operative Report 07/14/18 1302 MR#: [id number] Acct: [id number] Name: MARNI PETERSON Rep #: [id number] : 1955 62 From: Serge Santoyo MD PCP: Kateryna Medina MD Status: ADM IN Y Location: [place] [address] Report of Operation Date of Procedure: 07/14/18 Pre-Operative Diagnosis: Left knee primary osteoarthritis Post-Operative Diagnosis: Left knee primary osteoarthritis Surgery/Procedure Performed:: Left total knee arthroplasty, press-fit cruciate retaining Description of Surgical Findings:: Stable knee with good patella tracking chemical tester: Paulo Sykes Type of Anesthesia:: Spinal Anesthesiologist: [...] crystalloid Description of Procedure: Implants used: 1. [place] size 4 press-fit triathlon cruciate retaining distal femoral component 2. Dipti size 4 press-fit tibial baseplate 3. [place] X3 9 mm CS polyethylene 4. [place] X3 32 mm asymmetric patella Brief history [...] placed in deep flexion in the standard [employer] sizing guide was used to place the [...] then turned to the tibia where the BUILD tibial cutting guide was used to make [...] and cement was mixed in a vacuum. [place] Simplex cement was used. The wound was [...] then awakened from anesthesia, transferred to [facility] and transferred to the PACU for recovery. Post op plan DVT ppx: ASA 81mg, thigh high compression stockings Follow up: in office in 2 weeks for wound check PT: to start POD #0 at hospital, outpatient PT should be arranged. My physician culinary assistant was a vital part of this [...] 2 VIEWS Observed: 07/14/2018 Status: F Source: [place] 7:15 AM [facility] REPOSITORY [facility] Imaging Services [address] [place], [place] [address] [address] Knee 1 or 2 Views MR#: [id number] Acct: [id number] Name: MARNI PETERSON Rep #: [id number] : 1955 F 62 From: Tim Jenkins MD PCP: Kateryna Medina MD Status: ADM IN Study: Knee 1 or 2 Views Date of Exam: 07/14/18 Exam# [id number] Ordering Dr: Serge Santoyo MD STUDY: X-RAY [...] Tim Jenkins MD at 14:28 EST Tel [phone], Service support , CC: Kateryna Medina MD; Serge Santoyo MD Retail Asset Protection Specialist: Signed Observed: 07/01/2018 Status: F Source: [place] CULTURE, NOSE 9:50 AM [facility] REPOSITORY Gram Stain Gram Stain Rare White Blood Cells No organisms seen Nasoph. Cult No Haemophilus, Streptococcus pneumoniae, beta-hemolytic Streptococcus or Staphylococcus aureus isolated. Performed By: #### M100.0900 #### [facility] [address] [place], [address] 12 LEAD ELECTROCARDIOGRAM Observed: 06/30/2018 Status: F Source: [place] 3:26 PM [facility] REPOSITORY [facility] Cardiovascular Services [address] [facility] [place] [address] EKG - SDC 06/29/18 1140 MR#: [id number] Acct: [id number] Name: MARNI PETERSON Rep #: [id number] : 1955 62 From: Nathan Bear MD Attending Dr: Serge Santoyo MD Status: PRE IN Ordering Dr: Serge Santoyo MD Date: 06/29/18 Location: [facility] Sex: F C Admitted: Test Reason : [...] Abnormal ECG Confirmed by CHEMA MORALES, NATHAN ([id number]), school photograph editor ROXANA CHATMAN ([id number]) on 06/30/2018 3:26:36 PM Referred By: Serge Santoyo Confirmed By:NATHAN BEAR MD 06/30/18 1526 Date Nathan Bear MD CC: Kateryna Medina MD; Serge Santoyo MD Date Dictated: 06/29/18 1140 Date Transcribed: 06/29/18 1140 Retail Asset Protection Specialist: Signed HISTORY AND PHYSICAL Observed: 06/29/2018 Status: F Source: [place] EXAM 11:30 PM [facility] REPOSITORY [facility] Medical Records Department [address] [place] [address] History and Physical 06/29/18 2330 MR#: [id number] Acct: [id number] Name: MARNI PETERSON Rep #: [id number] : 1955 62 From: Paulo Sykes PA-C PCP: Kateryna Medina MD Status: PRE IN Y Location: [facility] History and Physical DATE OF SURGERY: 07/14/2018 [...] walking, going to [employer], crafting, going to [employer]. She has increased pain with anything that requires physical activity. Patient feels unsafe going up and down ladders. She has tried ice and elevation and heat with minimal to no relief. She has had previous corticosteroid injection with no relief in symptoms. Patient has tried physical therapy with no relief in symptoms. She has tried direct care supervisor without any relief. Patient has been on [...] ANKLE Surgical Hx: Tubal Ligation - (1985) [place] Gallbladder, Appendectomy Anesthesia Complications: None Assistive Devices: [...] 06/29/2018 Status: F Source: [place] 11:49 AM [facility] REPOSITORY TYPE CODE TESTS RESULT OUT OF [...] Lymph 2.34 Performed By: #### L100.0100 #### [facility] [address] [place], [place], [address] BASIC METABOLIC Collected: 06/29/2018 Status: F Source: [place] PROFILE ([facility]) 11:49 AM [facility] REPOSITORY TYPE CODE TESTS RESULT OUT OF [...] GAP 10 Performed By: #### L500.2500 #### [facility] [address] [place], [address] Observed: 06/29/2018 Status: F Source: [place] MRSA/SAID SCREEN 11:49 AM [facility] REPOSITORY MRSA/SAID SCRN S. AUREUS S. aureus Negative MRSA MRSA Negative Performed By: #### M100.651 #### [facility] [address] [place], [address] SINUSES MIN 3 VIEWS Observed: 06/25/2018 Status: F Source: [place] 1:02 PM [facility] REPOSITORY [facility] Imaging Services [address] [place] [address] Sinuses min 3 Views MR#: [id number] Acct: [id number] Name: MARNI PETERSON Rep #: [id number] : 1955 F 62 From: Tim Jenkins MD PCP: Kateryna Medina MD Status: REG CLI Study: Sinuses min 3 Views Date of Exam: 06/25/18 Exam# [id number] Ordering Dr: Delfino Wu MD STUDY: X-RAY [...] Tim Jenkins MD at 13:19 EST Tel [phone], Service support , CC: Kateryna Medina MD; Alan Wu MD Retail Asset Protection Specialist: Signed CHEST PA AND LATERAL Observed: 06/25/2018 Status: F Source: [place] 1:02 PM [facility] REPOSITORY [facility] Imaging Services [address] [place] [address] Chest PA and Lateral MR#: [id number] Acct: [id number] Name: MARNI PETERSON Rep #: [id number] : 1955 F 62 From: Tim Jenkins MD PCP: Kateryna Medina MD Status: REG CLI Study: Chest PA and Lateral Date of Exam: 06/25/18 Exam# [id number] Ordering Dr: Delfino Wu MD STUDY: X-RAY [...] Tim Jenkins MD at 13:20 EST Tel [phone], Service support , CC: Kateryna Medina MD; Alan Wu MD Retail Asset Protection Specialist: Signed ALLERGIES ALLERGIES DATE TYPE / CODE NAME / CODE REACTION SEVERITY SOURCE 07/14/2018 Drug tetracaine/F CONTACT Unknown [facility] Allergy/4160 [id number](RX DERMATITIS [facility] 13919(SNOMED NORM) Repository CT) 07/14/2018 Drug benzocaine/F CONTACT Unknown [facility] Allergy/4160 [id number](RX DERMATITIS [facility] 04944(SNOMED NORM) Repository CT) 07/14/2018 Drug procaine/F00 CONTACT Unknown [facility] Allergy/4160 5663911(RXNO DERMATITIS [facility] 16071(SNOMED RM) Repository CT) 06/29/2018 Drug codeine/F006 Nausea/Vom/Diarrh Unknown [facility] Allergy/4160 420041(RXNOR [facility] 78488(SNOMED M) Repository CT) ENCOUNTERS ENCOUNTERS ADMIT/DISCHARGE ACCOUNT ADMITTING ENCOUNTER LOCATION SOURCE NUMBER CLASS 07/27/2018 [id number] Ambulatory [place] 0 [facility] ing:[facility] Repository 07/14/2018/ [id number] Natanael, Inpatient [place] 8 9 Serge Encounter [facility] ing:QW5Veyd: Repository DD416Rvo: 1 07/01/2018 [id number] Ambulatory [place] 8 [facility] ing:[facility] Repository 06/29/2018 [id number] Ambulatory BMSBuilding:W [place] 4 [facility] Repository 06/25/2018 [id number] Ambulatory [place] 2 [facility] ing:MTRAD Repository PAYERS PAYERS ENCOUNTER GUARANTOR PAYER SUBSCRIBER SOURCE 07/27/2018 [place] A Primary RADHA A [place] [id number] Insurance:[employer] [facility]: [facility] [place]: [id number] [id number] Repository [address]Pts: (330) Date:5787-24-03ZX [phone] () [id number], [place] [address]PI: 07/27/2018 Secondary NOT GIVENUNK [place] Insurance:SELF PAY [facility] Number: Effective Repository Date:2018-07-27 07/14/2018 [place] A Primary RADHA A [place] [id number] Insurance:[facility] [place] [place]: [facility] Number: [id number] [id number] Repository [address]Phm: (330) Date:6283-59-17LY [phone] () [place] [address]KO: 07/14/2018 Secondary NOT GIVENUNK [place] Insurance:SELF PAY [facility] Number: Effective Repository Date:2018-06-02 07/01/2018 RADHA Au Primary MARNI [place] [id number] Insurance:CIGNAPolicy HENERYDOB: Community [place] Number: [id number] [id number] Repository [address]Vju: (330) Date:2093-83-08YG [phone] () [place]SFXLA[place]SI[place], [place] [address]ZV: 07/01/2018 Secondary NOT GIVENUNK [place] Insurance:SELF PAY [facility] Number: Effective Repository Date:2018-07-01 06/29/2018 [place] A Primary MARNI [place] [id number] Insurance:[employer]IGNAPolicy HENERYDOB: [facility] Number: [id number] [id number] Repository [address]Oqy: (330) Date:0135-53-49SY [phone] () [place] [address]PA: 06/29/2018 Secondary NOT GIVENUNK [place] Insurance:SELF PAY [facility] Number: Effective Repository Date:2018-06-29 06/25/2018 RAD[place] Au Primary MARNI [place] [id number] Insurance:CIGNAPolicy HENERYDOB: [facility] Number: [id number] [id number] Repository [address]Xnl: (330) Date:1245-37-19EN [phone] (HP) [place] [address]MF: 06/25/2018 Secondary NOT GIVENUNK [place] Insurance:SELF PAY [facility] Number: Effective Repository Date:2018-06-25
== END 2018-07-16 16:32 | disposition home or self-care (01) | DRG 470 ==
LOC: ACINP 10:11 → MS3 14:41
PROVIDERS: Admitting Provider Specialist; Family Provider Family Medicine; PCP Family Medicine; Referring Provider Specialist; Visit Provider Specialist
PROC: 0SRD0JA Replacement of Left Knee Joint with Synthetic Substitute, Uncemented, Open Approach (ICD-10-PCS; CPT 27447; principal; 2018-07-14 11:45)
DX: M17.12 Unilateral primary osteoarthritis, left knee (principal); I10 Essential (primary) hypertension; M79.7 Fibromyalgia; M35.00 Sjogren syndrome, unspecified
CPT/HCPCS: 36415; 73560; 80048; 85025; 85027; 87081; 93005; 97110; 97161; 97165; 97530; 97535; 99251; C1776; J7120; A4216; G0463; J2405

== ENCOUNTER → 2018-07-27 14:05 | Outpatient (CLI) | payer OTHER, SELFPAY ==
[2018-07-14 15:30] VITALS: BMI 42.5
--- NOTE | 2018-07-27 14:08 | VDLE_ITS ---
Reason For Study: Pain LLE RIGHT LEFT CFV is compressible, spontaneous, phasic, GSV is normal. competent and demonstrates normal CFV is compressible, spontaneous, phasic, augmentation. competent, and demonstrates normal Procedure augmentation. Exam performed in department. FV is compressible, spontaneous, phasic, A preliminary report was called and/or faxed competent and demonstrates normal to Paulo PAYAN. augmentation. POP V is compressible, spontaneous, phasic, competent and demonstrates normal augmentation. T/P Trunk is compressible. PTV is compressible. LT PerV is compressible. Interpretation Summary Deep veins of the left lower extremity are patent and compressible segmentally. There is no evidence of left lower extremity deep vein thrombosis. Valvular competence appears intact within the proximal deep venous system on the left . The left greater saphenous vein appears patent and compressible segmentally. Ordering Physician: Paulo Sykes Referring Physician: Kateryna Medina Performed By: Ml Canales, ESPINOZA, RVT
== END ==
PROVIDERS: Family Provider Family Medicine; PCP Family Medicine; Referring Provider Physician Assistant Surgical; Visit Provider Physician Assistant Surgical
DX: M79.662 Pain in left lower leg (principal); Z96.652 Presence of left artificial knee joint
CPT/HCPCS: 93971

== ENCOUNTER → 2018-10-15 11:02 | Outpatient (CLI) | payer OTHER, SELFPAY ==
[2018-07-14 15:30] VITALS: BMI 42.5
--- NOTE | 2018-10-15 11:06 | BI_ITS ---
MAMMOGRAPHY - BILATERAL SCREENING 3-D HELLEN SYNTHESIS REASON FOR EXAM: Female, 63 years old. Bilateral Screening 3-D tomosynthesis PERTINENT HISTORY: No significant family history. TECHNIQUE: 2-D mammograms and 3-D Hellen synthesis of the breast (s) were performed. CAD was performed. COMPARISON: August 15, 2017, June 04, 2016 FINDINGS: The breast composition is almost entirely fat. Scattered benign calcifications are stable. There are normal-appearing lymph nodes unchanged. No dense spiculated masses or suspicious microcalcifications are identified. No architectural distortion is identified. There is no skin thickening or retraction. There has been no significant change since the prior study. BI/SCREENING MAMM (CAD), BILAT IMPRESSION: No mammographic signs of malignancy. Routine yearly mammograms recommended. ASSESSMENT CATEGORY: BIRADS Category 2: Benign. A letter regarding these results will be sent to the patient by the facility within 30 days. FOLLOW UP RECOMMENDATION: Yearly follow up mammogram recommended. (A) Approximately 10% of breast cancers are not detected by mammography. A normal mammogram should not delay biopsy of a clinically suspicious abnormality. Electronically Signed: Twin Pantoja MD at 16:44 EDT , Service support ,
== END ==
PROVIDERS: Family Provider Family Medicine; PCP Family Medicine; Referring Provider Family Medicine; Visit Provider Family Medicine
DX: Z12.31 Encounter for screening mammogram for malignant neoplasm of breast (principal)
CPT/HCPCS: 77063; 77067

== ENCOUNTER → 2018-11-24 | Outpatient (CLI) | payer OTHER, SELFPAY ==
[2018-07-14 15:30] VITALS: BMI 42.5
--- NOTE | 2018-11-24 12:12 | CT_ITS ---
STUDY: CT ABDOMEN AND PELVIS WITHOUT CONTRAST REASON FOR EXAM: Female, 63 years old. Right flank pain with hematuria RADIATION DOSAGE (If Supplied By Facility): CTDIvol = ( 14.80 ) mGy, DLP = ( 811.15 ) mGycm TECHNIQUE: Transaxial images were obtained from the dome of the diaphragm to the symphysis pubis without oral contrast, and without intravenous contrast. Sagittal and coronal images were reconstructed. Individualized dose optimization techniques were used for this CT. COMPARISON: None. FINDINGS: The visualized lung bases are unremarkable. The visualized portions of the heart are within normal limits. Normal liver. There are surgical clips in the gallbladder fossa consistent with a prior cholecystectomy. Normal spleen. Normal pancreas. Normal bilateral adrenal glands. Moderate hydronephrosis and right hydroureter. There is a stone in the proximal right ureter measuring 6.1 mm. Right perinephric fat stranding and edema. Normal left kidney. Normal visualized stomach. Normal small intestine. There are multiple colonic diverticula consistent with diverticulosis. There are surgical clips in the region of the appendix consistent with a prior appendectomy. Normal abdominal aorta. Normal inferior vena cava. Normal retroperitoneum. Normal urinary bladder. Normal visualized uterus. Normal abdominal wall. Normal osseous structures. CT/Abdomen/Pelvis without Cont IMPRESSION: Moderate right hydronephrosis with right perinephric fat stranding and edema. Stone in the upper right ureter as above. Electronically Signed: Chriss Medel DO at 13:19 EDT Tel , Service support ,
== END | disposition home or self-care (01) ==
PROVIDERS: Family Provider Family Medicine; PCP Family Medicine; Referring Provider Family Medicine; Visit Provider Family Medicine
DX: R31.29 Other microscopic hematuria (principal); R10.9 Unspecified abdominal pain
CPT/HCPCS: 74176

== ENCOUNTER → 2018-11-25 | Outpatient (CLI) | payer OTHER, SELFPAY ==
[2018-07-14 15:30] VITALS: BMI 42.5
[2018-11-25 10:16] LABS: Erythrocyte Sedimentation Rate 58 mm/hr (0-30)
[2018-11-25 10:18] LABS: Absolute Lymphocyte Count 2.03 X10^3/ul (0.83-4.51); Absolute Neutrophil Count 5.7 X10^3/uL (2.0-7.7); Basophil# 0.02 X10^3/uL; Basophil% 0.2 % (0-1); Eosinophil# 0.22 X10^3/uL; Eosinophils% 2.5 % (0-5); Hematocrit 38.5 % (37-47); Hemoglobin 12.7 g/dl (12.0-15.0); Lymphocyte # 2.03 X10^3/ul (4.0); Lymphocyte % 23.5 % (19-41); Mean Corpuscular Hgb 28.7 pg (27.0-32.0); Mean Corpuscular Volume 87.1 fL (81-99); Mean Platelet Vol. 9.4 fl (6.2-12.0); Monocyte# 0.72 X10^3/uL; Monocyte% 8.3 % (0-10); Neutrophil # 5.65 X10^3/uL (2.7-7.7); Neutrophil % 65.4 % (47-70); Platelet Count 252 K/mm3 (150-450); RBC Distribution Width CV 12.8 % (11.6-14.6); RBC Distribution Width SD 41.3 fl (35.1-43.9); Red Blood Count 4.42 M/mm3 (4.2-5.4); White Blood Count 8.7 K/mm3 (4.4-11.0)
[2018-11-25 10:20] LABS: POSITIVE COUNT NO; POSITIVE DIFFERENTIAL NO; POSITIVE MORPHOLOGY NO
== END | disposition home or self-care (01) ==
LOC: MTLAB 07:38
PROVIDERS: Family Provider Family Medicine; PCP Family Medicine; Referring Provider Specialist; Visit Provider Specialist
DX: Z96.652 Presence of left artificial knee joint (principal)
CPT/HCPCS: 36415; 85025; 85652; 86140

== ENCOUNTER → 2018-11-26 | Outpatient (CLI) | payer OTHER, SELFPAY ==
[2018-07-14 15:30] VITALS: BMI 42.5
[2018-11-26 11:56] LABS: RBC /Synovial Fluid 0.046 10^6/uL (0); Synovial Fld Mononuclear WBC % 58.7 %; Synovial Fld Polynuclear WBC # 0.303 10^3/ul; Synovial Fld Polynuclear WBC % 41.3 %
[2018-11-26 12:10] LABS: AUTO B FLUID DILUENT BKGD CT WBC <0.1 RBC <0.01 (W<.1,R<.01); Appearance /Synovial Fluid Cloudy (CLEAR); Color / Synovial Fluid Red (Pale Yellow); Source / Synovial Fluid LEFT KNEE
[2018-11-26 13:52] LABS: Body Fluid QC Type(s) BF1Q; Lymph 50 %; Monocyte /Synovial Fluid 12 %; Neutrophil 38 % (0-25)
--- NOTE | 2018-11-26 15:32 | RAD_ITS ---
STUDY: X-RAY - ABDOMEN/PELVIS REASON FOR EXAM: Female, 63 years old. Calculus TECHNIQUE: 2 views COMPARISON: CT abdomen/pelvis November 24, 2018. FINDINGS: There is an unremarkable bowel gas pattern. Colonic fecal retention. There is no demonstrated free abdominal air. Fecal retention limiting evaluation of the renal shadows. Surgical clips in the right upper quadrant. Previously noted right ureteral stone at the L3-4 level is faintly noted. Normal soft tissue structures. Degenerative vertebral changes. RAD/Abdomen Single View IMPRESSION: Fecal retention in the colon obscuring the renal shadows limiting evaluation. Previously noted right ureteral stone at the L3-4 level is faintly noted. Electronically Signed: Denis Anthony DO at 19:21 EDT Tel [phone], Service support ,
[2018-11-27 14:21] LABS: Pathologist Comment Reviewed
== END | disposition home or self-care (01) ==
PROVIDERS: Specialist; Family Provider Family Medicine; PCP Family Medicine; Referring Provider Urology; Visit Provider Urology
DX: Z96.652 Presence of left artificial knee joint (principal)
CPT/HCPCS: 74018; 87015; 87070; 87075; 87101; 87116; 87205; 87206; 89050; 89051

== ENCOUNTER 2018-12-04 10:22 | Day surgery (SDC) | payer OTHER, SELFPAY ==
[2018-07-14 15:30] VITALS: BMI 42.5
[2018-12-04 10:50] VITALS: BP 132/76; PULSE 72; RESP 18; TEMP 37.3; O2SAT 98; BMI 39.3
--- NOTE | 2018-12-04 12:43 | PCM.OPRPT ---
Problem List (1) Right ureteral calculus Status: Acute (2) Hydronephrosis Status: Acute Report of Operation Date of Procedure: 12/04/18 Pre-Operative Diagnosis: right ureteral stone with hydronephrosis Post-Operative Diagnosis: right hydronephrosis and ureteral stricture Surgery/Procedure Performed:: cystoscopy, right retrograde pyelogram, right ureteroscopy, right ureteral stent insertion Description of Surgical Findings:: no stone identified on fluoroscopic visualization or on direct visualization with ureteroscopy. The right ureter appears to be strictured in the area of the mid ureter. There could be an impacted stone behind the ureteral mucosa. Type of Anesthesia:: General Special Medications: ancef Specimen's removed: none Description of Procedure: The patient was taken to the operating room and placed in the operating room table. Anesthesia monitored the head, neck, airway, IV access and vital signs throughout the case. Once anesthesia was appropriately administered she fluoroscopic visualization revealed no evidence of ureteral calculus. A cystourethroscopy was performed with no abnormality within the urinary bladder or urethra. The right ureteral orifice was intubated with an 8 Tanzanian cone-tip catheter and a retrograde pyelogram was performed. There is an area of stricture identified at the location of the stone seen on the CT scan. A 0.035 Glidewire was then inserted through the right ureteral orifice into the renal pelvis. Semirigid ureteroscopy was then performed and was able to go all the way up to the area of the right renal pelvis. The area of the stricture was easily identified and narrowed. No stone was identified, but there was definitely a narrowed area versus external compression. At this time the decision was made to place a right ureteral stent and this was done without difficulty. Good curling was achieved in the renal pelvis as well as the urinary bladder. The bladder was emptied and the case was terminated. He was taken to recovery room in good condition. This document was dictated using [employer] dictation software, misspellings and incorrect word choices are possible. Grafts/Implants Used: right JJ stent - Complications none - Admit VTE Documentation VTE Present on Admission: Yes VTE Mechan Device Prophylaxis: SCD's VTE Pharm Prophylaxis ordered?: No Reason prophylaxis not ordered:: Treatment Not Indicated
--- NOTE | 2018-12-04 12:46 | OP.PCM_ITS ---
Problem List (1) Right ureteral calculus Status: Acute (2) Hydronephrosis Status: Acute Report of Operation Date of Procedure: 12/04/18 Pre-Operative Diagnosis: right ureteral stone with hydronephrosis Post-Operative Diagnosis: right hydronephrosis and ureteral stricture Surgery/Procedure Performed:: cystoscopy, right retrograde pyelogram, right ureteroscopy, right ureteral stent insertion Description of Surgical Findings:: no stone identified on fluoroscopic visualization or on direct visualization with ureteroscopy. The right ureter appears to be strictured in the area of the mid ureter. There could be an impacted stone behind the ureteral mucosa. Type of Anesthesia:: General Special Medications: ancef Specimen's removed: none Description of Procedure: The patient was taken to the operating room and placed in the operating room t able. Anesthesia monitored the head, neck, airway, IV access and vital signs throughout the case. Once anesthesia was appropriately administered she fluoroscopic visualization revealed no evidence of ureteral calculus. A cystourethroscopy was performed with no abnormality within the urinary bladder or urethra. The right ureteral orifice was intubated with an 8 Khmer cone-tip catheter and a retrograde pyelogram was performed. There is an area of stricture identified at the location of the stone seen on the CT scan. A 0.035 Glidewire was then inserted through the right ureteral orifice into the renal pelvis. Semirigid ureteroscopy was then performed and was able to go all the way up to the area of the right renal pelvis. The area of the stricture was easily identified and narrowed. No stone was identified, but there was definitely a narrowed area versus external compression. At this time the decision was made to place a right ureteral stent and this was done without difficulty. Good curling was achieved in the renal pelvis as well as the urinary bladder. The bladder was emptied and the case was terminated. He was taken to recovery room in good condition. This document was dictated using [employer] dictation software, misspellings and incorrect word choices are possible. Grafts/Implants Used: right JJ stent - Complications none - Admit VTE Documentation VTE Present on Admission: Yes VTE Mechan Device Prophylaxis: SCD's VTE Pharm Prophylaxis ordered?: No Reason prophylaxis not ordered:: Treatment Not Indicated
--- NOTE | 2018-12-04 12:46 | PCM.DC.URO ---
Discharge Diet: No Restrictions Discharge Activity: May not drive while taking narcotic pain medications. May resume sexual activity in: 2 weeks Call your doctor if you observe: Fever of 101 or Higher, Inability to urinate, Inability to have a bowel movement, Shortness of breath, Chest pain, Calf discomfort, Uncontrolled pain Allergies/Adverse Reactions: Allergies benzocaine Adverse Reaction (Verified 12/02/18 10:17) CONTACT DERMATITIS codeine Adverse Reaction (Verified 12/02/18 10:17) Nausea/Vom/Diarrhea prednisone Adverse Reaction (Verified 12/04/18 10:48) inside of mouth raw INSIDE MOUTH OF RAW procaine Adverse Reaction (Verified 12/02/18 10:17) CONTACT DERMATITIS tetracaine Adverse Reaction (Verified 12/02/18 10:17) CONTACT DERMATITIS Medications to take at Discharge Amitriptyline HCl 75 mg PO QHS 05/16/17 Doxepin HCl 75 mg PO QHS 05/16/17 Propranolol HCl [Inderal LA (Beta Liliana)] 80 mg PO QHS 05/16/17 Metronidazole [Metrogel Topical] 1 applic TOPICAL DAILY 06/29/18 Acetaminophen [Tylenol] 1,000 mg PO Q8 #90 tablet 07/16/18 Meloxicam [Mobic] 7.5 mg PO BID #60 tablet 07/16/18 Senna/Docusate Sodium [Senokot-S] 2 tablet PO BID #20 tablet 07/16/18 Ondansetron [Zofran Odt] 4 mg PO Q8H PRN PRN 12/02/18 Cephalexin [Keflex] 500 mg PO Q12 3 Days #6 cap 12/04/18 Hydrocodone Bitart/Apap 5-325 [[place] 5MG-325MG] 1 tab PO Q4H PRN PRN 7 Days #20 tab 12/04/18 Phenazopyridine HCl [Pyridium] 200 mg PO TID PRN PRN 7 Days #30 tab 12/04/18 The following prescriptions were given: Hydrocodone Bitart/Apap 5-325 [[place] 5MG-325MG] 1 tab PO Q4H PRN PRN 7 Days #20 tab PRN Reason: Pain Cephalexin [Keflex] 500 mg PO Q12 3 Days #6 cap Phenazopyridine HCl [Pyridium] 200 mg PO TID PRN PRN 7 Days #30 tab PRN Reason: Bladder Spasms Primary Care Physician: Kateryna Medina MD [Primary Care Provider] - Test Results: Test results from this visit will be discussed in further detail at your follow-up appointment, if applicable. Please Follow Up With: Charissa Olivas MD When: the office will call you to schedule repeat ureteroscopy. Proposed Discharge Date: 12/04/18
[2018-12-04] MEDS: Cefazolin 2 GM in 0.9% Normal Saline 100 ML IV (13:08)
[2018-12-04 14:02] VITALS: BP 132/76; BP 142/83; PULSE 85; RESP 16; TEMP 36.4; O2SAT 92
[2018-12-04 14:15] VITALS: BP 129/73; BP 132/76; PULSE 75; RESP 16; O2SAT 92
[2018-12-04 14:30] VITALS: BP 128/65; BP 132/76; PULSE 78; RESP 16; O2SAT 92
[2018-12-04 14:45] VITALS: BP 132/76; PULSE 75; RESP 16; TEMP 36.3; O2SAT 93
[2018-12-04 15:34] VITALS: BP 132/76; BP 153/77; PULSE 78; RESP 18; TEMP 36.1; O2SAT 96
[2018-12-04] MEDS: HYDROcodone Bitartrate/Apap 5/325 Tablet PO (15:46)
== END 2018-12-04 16:40 | disposition home or self-care (01) ==
LOC: SDC 10:24 → AC 10:26
PROVIDERS: Family Provider Family Medicine; PCP Family Medicine; Referring Provider Urology; Visit Provider Urology
PROC: (CPT 50590; principal; 2018-12-04 11:50)
DX: N13.1 Hydronephrosis with ureteral stricture, not elsewhere classified (principal); I10 Essential (primary) hypertension; Z79.899 Other long term (current) drug therapy; G25.81 Restless legs syndrome; M35.00 Sjogren syndrome, unspecified; M79.7 Fibromyalgia
CPT/HCPCS: 52332; J7120; C1769; C2617; J2405

== ENCOUNTER 2018-12-15 07:25 | Day surgery (SDC) | payer OTHER, SELFPAY ==
[2018-12-15] VITALS (8 sets, daily range): BP systolic 110–156; BP diastolic 69–95; PULSE 78–87; RESP 16; TEMP 35.9–36.5; O2SAT 92–98; BMI 38.6
--- NOTE | 2018-12-15 | BLB_PTH ---
PATIENT: MARNI PETERSON LOC: [facility] [place] U#:[id number] AGE/SX: 63/F ROOM: RE12/15/[address]: Dr. Charissa Olivas MD : [id number] BED: DIS: 12/15/2018 SPEC #: [id number] RECD: 12/15/18 14:10 STATUS: SAWYER HAZEL #: [id number] MALCOM: 12/15/18 00:[address]: Charissa Olivas DEPT: SURGICAL PATHOLOGY RECD BY: Juan Sage ENTERED: 12/15/18 14:10 SP TYPE: TURB OTHR DR: Dr. Kateryna Medina MD Tissues: Urinary bladder, NOS Procedures: Surgery Specimen Level I Surgery Specimen Level IV HEADER OPERATION: Cystoscopy, ureteroscopy, retrograde, laser of stone, stent PRE-OP DIAGNOSIS: Right ureteral calculus, right hydronephrosis TISSUE SUBMITTED: Right ureteral calculi MICROSCOPIC DIAGNOSIS Right ureteral tissue and calculus: Unremarkable calculus (gross diagnosis) only. Fibrinoid material with acute and chronic inflammation cells. No evidence of malignancy. AM:alison 12/16/18 GROSS DIAGNOSIS COMMENT The calculus is submitted in its entirety for chemical stone analysis. The results from this study will be reported separately. MICROSCOPIC DESCRIPTION Slides are reviewed. GROSS DESCRIPTION Received fresh is one container labeled with the patient's name and designated right ureteral calculi. The specimen consists of a single brownish-black fragment of hard material, grossly consistent with calculus and measuring 0.2 x 0.1 x 0.1 cm. Also received within the same specimen container is a portion of brownish irregular soft tissue measuring 0.2 x 0.2 x 0.1 cm. The soft tissue is submitted for histology in one cassette. The calculus is sent for chemical analysis. / CE:alison 12/15/18 TC:5 CPT: 50321, 42849
--- NOTE | 2018-12-15 08:59 | PCM.HP.BLA ---
Problem List (1) Right ureteral calculus Status: Acute (2) Hydronephrosis Status: Acute History and Physical Date of Admission: 12/15/18 I have re-examined the patient. There are no clinical changes since date of exam.
--- NOTE | 2018-12-15 09:01 | DCINST_ITS ---
Discharge Diet: No Restrictions Discharge Activity: Return to Normal Activity, May not drive while taking narcotic pain medications. Call your doctor if you observe: Fever of 101 or Higher, Inability to urinate, Inability to have a bowel movement, Shortness of breath, Chest pain, Calf discomfort, Uncontrolled pain Allergies/Adverse Reactions: Allergies benzocaine Adverse Reaction (Verified 12/15/18 07:50) CONTACT DERMATITIS codeine Adverse Reaction (Verified 12/15/18 07:50) Nausea/Vom/Diarrhea prednisone Adverse Reaction (Verified 12/15/18 07:50) inside of mouth raw INSIDE MOUTH OF RAW procaine Adverse Reaction (Verified 12/15/18 07:50) CONTACT DERMATITIS tetracaine Adverse Reaction (Verified 12/15/18 07:50) CONTACT DERMATITIS Medications to take at Discharge RX: Amitriptyline HCl 75 mg PO QHS 05/16/17 RX: Doxepin HCl 75 mg PO QHS 05/16/17 RX: Propranolol HCl [Inderal LA (Beta Liliana)] 80 mg PO QHS 05/16/17 RX: Metronidazole [Metrogel Topical] 1 applic TOPICAL DAILY 06/29/18 RX: Acetaminophen [Tylenol] 1,000 mg PO Q8 #90 tablet 07/16/18 RX: Meloxicam [Mobic] 7.5 mg PO BID #60 tablet 07/16/18 RX: Senna/Docusate Sodium [Senokot-S] 2 tablet PO BID #20 tablet 07/16/18 RX: Ondansetron [Zofran Odt] 4 mg PO Q8H PRN PRN 12/02/18 Primary Care Physician: Kateryna Medina MD [Primary Care Provider] - Test Results: Test results from this visit will be discussed in further detail at your follow- up appointment, if applicable. Please Follow Up With: Charissa Olivas MD When: Call office for appt. in 1 week stent removal Proposed Discharge Date: 12/15/18
--- NOTE | 2018-12-15 09:01 | PCM.OPRPT ---
Problem List (1) Right ureteral calculus Status: Acute (2) Hydronephrosis Status: Acute Report of Operation Date of Procedure: 12/15/18 Pre-Operative Diagnosis: right ureteral calculus, right hydronephrosis. Post-Operative Diagnosis: same Surgery/Procedure Performed:: cystoscopy, right ureteroscopy, holmium laser lithotripsy, stone basket extraction, right ureteral stent change Description of Surgical Findings:: stone was soft with hard center. center fragment was retrieved and sent for analysis. Type of Anesthesia:: General Specimen's removed: stone fragment Estimated Blood Loss (mL): 2-3cc Grafts/Implants Used: 6x24 JJ stent - Complications none - Admit VTE Documentation VTE Present on Admission: Yes VTE Mechan Device Prophylaxis: SCD's VTE Pharm Prophylaxis ordered?: No Reason prophylaxis not ordered:: Treatment Not Indicated
[2018-12-15] MEDS: Cefazolin 2 GM in 0.9% Normal Saline 100 ML IV (09:25)
[2018-12-24 15:55] LABS: Ca Oxalate, Dihydrate 20 % (.); Ca Oxalate, Monohydrate 75 % (.)
== END 2018-12-15 12:30 | disposition home or self-care (01) ==
LOC: SDC 07:28 → AC 07:29
PROVIDERS: Family Provider Family Medicine; PCP Family Medicine; Referring Provider Urology; Visit Provider Urology
PROC: 0TJ98ZZ Inspection of Ureter, Via Natural or Artificial Opening Endoscopic (ICD-10-PCS; CPT 52352; principal; 2018-12-15 08:45)
DX: N13.2 Hydronephrosis with renal and ureteral calculous obstruction (principal)
CPT/HCPCS: 00873; 50590; 52332; 76000; 82360; 88300; 88305; J7120; C1769; C2617; J2405

== ENCOUNTER → 2019-06-15 08:10 | Outpatient (CLI) | payer OTHER, SELFPAY ==
[2018-12-15 07:53] VITALS: BMI 38.6
--- NOTE | 2019-06-15 08:13 | RAD_ITS ---
HISTORY: F/U FOR KIDNEY STONES, TAKES MEDICATION FOR HBP ADDITIONAL HISTORY: None. COMPARISON: 11/26/2018 Technique: Supine abdominal radiographs Number of images including paperwork: 3 FINDINGS: FREE AIR: None detected. BOWEL GAS PATTERN: Nonobstructive. Moderate amount of colonic stool. CALCIFICATIONS: No definite urinary tract calculi. ORGANS: No evidence of organomegaly. SOFT TISSUES: Unremarkable. BONES: No acute skeletal findings. Degenerative changes. RAD/Abdomen Single View IMPRESSION: No acute abdominal abnormality is radiographically apparent. at [id number] Reported and signed by: Tiffanie Henderson MD Electronically Signed: Tiffanie Henderson MD at 22:47 EST Tel , Service support ,
== END ==
PROVIDERS: Family Provider Family Medicine; PCP Family Medicine; Referring Provider Urology; Visit Provider Urology
DX: N20.0 Calculus of kidney (principal)
CPT/HCPCS: 74018

== ENCOUNTER → 2019-07-05 10:04 | Outpatient (CLI) | payer OTHER, SELFPAY ==
[2018-12-15 07:53] VITALS: BMI 38.6
--- NOTE | 2019-07-05 10:09 | RAD_ITS ---
STUDY: X-RAY - PELVIS REASON FOR EXAM: Female, 63 years old. Inflammatory polyarthropathy TECHNIQUE: One view of the pelvis was obtained. COMPARISON: None. FINDINGS: There is a non-specific bowel gas pattern. Normal visualized soft tissue structures. Normal bilateral iliac wings, sacroiliac joints and visualized sacrum. Normal visualized bilateral superior and inferior pubic rami. Normal pubic symphysis. Normal ischial tuberosities. Normal visualized right femoral head. Normal right acetabulum. Normal right hip joint. Normal visualized left femoral head. Normal left acetabulum. Normal left hip joint. RAD/Pelvis 1 or 2 Views IMPRESSION: Normal x-ray examination of the pelvis. Electronically Signed: Derick Dalton MD at 15:42 EST Tel , Service support ,
[2019-07-05 12:23] LABS: Absolute Lymphocyte Count 2.22 X10^3/uL (0.83-4.51); Basophil# 0.03 X10^3/uL; Basophil% 0.4 % (0-1); Eosinophils% 1.5 % (0-5); Erythrocyte Sedimentation Rate 20 mm/hr (0-30); Hematocrit 41.3 % (37-47); Hemoglobin 13.3 g/dL (12.0-15.0); Lymphocyte # 2.22 X10^3/ul (4.0); Lymphocyte % 32.4 % (19-41); Mean Corp Hgb Conc 32.2 g/dL (32-36); Mean Corpuscular Hgb 29.7 pg (27.0-32.0); Mean Corpuscular Volume 92.2 fL (81-99); Monocyte% 7.3 % (0-10); NRBC Flagged by Analyzer 0 % (0-5); Neutrophil # 3.99 X10^3/uL (2.7-7.7); Neutrophil % 58.1 % (47-70); Platelet Count 240 K/mm3 (150-450); RBC Distribution Width CV 12.6 % (11.6-14.6); RBC Distribution Width SD 42.7 fl (35.1-43.9); Red Blood Count 4.48 M/mm3 (4.2-5.4); White Blood Count 6.9 K/mm3 (4.4-11.0)
[2019-07-05 12:47] LABS: ALB/GLOB Ratio 0.9 RATIO (0.9-2.4); AST(SGOT) 29 U/L (15-37); Alanine Aminotransfer ALT/SGPT 40 U/L (13-56); Albumin, Serum 3.7 g/dL (3.2-5.0); Alkaline Phosphatase 90 U/L (45-117); Anion Gap 4 (5-15); BUN 14 mg/dL (7-18); BUN/Creat Ratio 17.8 RATIO (10-20); CRP 6.37 mg/L (0.0-3.0); Calcium,Total 8.9 mg/dL (8.5-10.1); Chloride 103 mmol/L (98-107); Creatinine, Serum 0.79 mg/dL (0.55-1.02); EST Glomerular Filtration Rate 78 mL/min (>60); Est Glom Filt Rate - Afr Amer 94 mL/min (>60); Globulin 4.2 g/dL (2.2-4.2); Glucose 100 mg/dL (74-106); Potassium 3.8 mmol/L (3.5-5.1); Protein, Total 7.9 g/dL (6.4-8.2); Rheumatoid Factor < 10.0 IU/mL (<15); Sodium Level 138 mmol/L (136-145)
[2019-07-05 13:35] LABS: Hepatitis B Surface Antibody Non-Reactive; Hepatitis B Surface Antigen Non-Reactive (Nonreactive); Hepatitis C Antibody Non-Reactive (Nonreactive)
[2019-07-06 14:08] LABS: SJOGREN'S Anti-SS-A test < 0.2 AI (0.0-0.9); SJOGREN'S Anti-SS-B test < 0.2 AI (0.0-0.9)
[2019-07-06 15:26] LABS: ANTINUCLEAR ANTIBODIES DIRECT Positive (Negative)
[2019-07-09 20:07] LABS: QNTFERON TB Mitogen Value > 10.00 IU/mL (.); QNTFERON TB Nil Value 0.06 IU/mL (.); QNTFERON TB1+ Ag Value 0.06 IU/mL (.); QNTFERON TB2+ Ag Value 0.07 IU/mL (.)
[2019-07-11 11:36] LABS: CCP IgG Antibodies 7 units (0-19); HLA B27 Negative (.); Hepatitis B Core AB IgM Negative (Negative); QNTIFERON TB Positive Criteria Negative (Negative)
== END ==
PROVIDERS: Family Provider Family Medicine; PCP Family Medicine; Referring Provider Internal Medicine Rheumatology; Visit Provider Internal Medicine Rheumatology
DX: M06.4 Inflammatory polyarthropathy (principal); M19.041 Primary osteoarthritis, right hand; M17.0 Bilateral primary osteoarthritis of knee; M79.7 Fibromyalgia; M35.00 Sjogren syndrome, unspecified; I10 Essential (primary) hypertension; N20.0 Calculus of kidney
CPT/HCPCS: 36415; 72170; 80053; 81374; 85025; 85652; 86038; 86140; 86200; 86235; 86431; 86480; 86705; 86706; 86803; 87340

== ENCOUNTER → 2019-07-27 11:10 | Outpatient (CLI) | payer OTHER, SELFPAY ==
[2018-12-15 07:53] VITALS: BMI 38.6
[2019-07-27 15:31] LABS: Anion Gap 5 (5-15); BUN 14 mg/dL (7-18); BUN/Creat Ratio 17.6 RATIO (10-20); Calcium,Total 9.4 mg/dL (8.5-10.1); Chloride 105 mmol/L (98-107); Cholesterol 195 mg/dL (200); EST Glomerular Filtration Rate 77 mL/min (>60); Est Glom Filt Rate - Afr Amer 93 mL/min (>60); Glucose 112 mg/dL (74-106); High Density Lipoprotein 49 mg/dL; Potassium 4.6 mmol/L (3.5-5.1); Sodium Level 140 mmol/L (136-145); Triglycerides 137 mg/dL; Very Low Density Lipoprotein 27 mg/dL (5-40)
== END ==
PROVIDERS: Family Provider Family Medicine; PCP Family Medicine; Referring Provider Family Medicine; Visit Provider Family Medicine
DX: I10 Essential (primary) hypertension (principal); E78.00 Pure hypercholesterolemia, unspecified
CPT/HCPCS: 36415; 80048; 80061

== ENCOUNTER → 2019-09-07 12:35 | Outpatient (CLI) | payer OTHER, SELFPAY ==
[2018-12-15 07:53] VITALS: BMI 38.6
[2019-09-07 13:42] LABS: Absolute Lymphocyte Count 2.46 X10^3/uL (0.83-4.51); Absolute Neutrophil Count 3.9 X10^3/uL (2.0-7.7); Basophil# 0.03 X10^3/uL; Basophil% 0.4 % (0-1); Eosinophil# 0.12 X10^3/uL; Eosinophils% 1.7 % (0-5); Hematocrit 39.9 % (37-47); Hemoglobin 12.8 g/dL (12.0-15.0); Lymphocyte # 2.46 X10^3/ul (4.0); Lymphocyte % 35.1 % (19-41); Mean Corp Hgb Conc 32.1 g/dL (32-36); Mean Corpuscular Hgb 29.3 pg (27.0-32.0); Mean Corpuscular Volume 91.3 fL (81-99); Mean Platelet Vol. 9.2 fl (6.2-12.0); Monocyte# 0.52 X10^3/uL; Monocyte% 7.4 % (0-10); NRBC Flagged by Analyzer 0 % (0-5); Neutrophil # 3.85 X10^3/uL (2.7-7.7); Neutrophil % 55.1 % (47-70); Platelet Count 293 K/mm3 (150-450); RBC Distribution Width CV 12.6 % (11.6-14.6); RBC Distribution Width SD 41.5 fl (35.1-43.9); Red Blood Count 4.37 M/mm3 (4.2-5.4)
[2019-09-07 14:04] LABS: ALB/GLOB Ratio 0.9 RATIO (0.9-2.4); AST(SGOT) 24 U/L (15-37); Alanine Aminotransfer ALT/SGPT 35 U/L (13-56); Albumin, Serum 3.8 g/dL (3.2-5.0); Alkaline Phosphatase 86 U/L (45-117); Anion Gap 6 (5-15); BUN 13 mg/dL (7-18); BUN/Creat Ratio 15.6 RATIO (10-20); Calcium,Total 9.4 mg/dL (8.5-10.1); Chloride 104 mmol/L (98-107); Creatinine, Serum 0.83 mg/dL (0.55-1.02); EST Glomerular Filtration Rate 73 mL/min (>60); Est Glom Filt Rate - Afr Amer 88 mL/min (>60); Globulin 4.4 g/dL (2.2-4.2); Glucose 126 mg/dL (74-106); Potassium 3.8 mmol/L (3.5-5.1); Protein, Total 8.2 g/dL (6.4-8.2); Sodium Level 139 mmol/L (136-145)
== END ==
PROVIDERS: PCP Family Medicine; Referring Provider Internal Medicine Rheumatology; Visit Provider Internal Medicine Rheumatology
DX: M06.4 Inflammatory polyarthropathy (principal); I10 Essential (primary) hypertension; Q66.71 Congenital pes cavus, right foot; M17.0 Bilateral primary osteoarthritis of knee; M79.7 Fibromyalgia; M35.00 Sjogren syndrome, unspecified
CPT/HCPCS: 36415; 80053; 85025

== ENCOUNTER → 2019-11-09 13:15 | Outpatient (CLI) | payer MEDICARE, SELFPAY ==
[2018-12-15 07:53] VITALS: BMI 38.6
[2019-11-09 14:47] LABS: Absolute Lymphocyte Count 1.93 X10^3/uL (0.83-4.51); Absolute Neutrophil Count 3.1 X10^3/uL (2.0-7.7); Basophil# 0.02 X10^3/uL; Basophil% 0.4 % (0-1); Eosinophil# 0.09 X10^3/uL; Eosinophils% 1.6 % (0-5); Hematocrit 40.5 % (37-47); Hemoglobin 13.2 g/dL (12.0-15.0); Lymphocyte # 1.93 X10^3/ul (4.0); Lymphocyte % 34.3 % (19-41); Mean Corp Hgb Conc 32.6 g/dL (32-36); Mean Corpuscular Hgb 29.3 pg (27.0-32.0); Monocyte# 0.51 X10^3/uL; Monocyte% 9.1 % (0-10); NRBC Flagged by Analyzer 0 % (0-5); Neutrophil # 3.06 X10^3/uL (2.7-7.7); Neutrophil % 54.2 % (47-70); Platelet Count 238 K/mm3 (150-450); RBC Distribution Width CV 13.1 % (11.6-14.6); RBC Distribution Width SD 42.3 fl (35.1-43.9); White Blood Count 5.6 K/mm3 (4.4-11.0)
[2019-11-09 15:08] LABS: ALB/GLOB Ratio 0.9 RATIO (0.9-2.4); AST(SGOT) 39 U/L (15-37); Alanine Aminotransfer ALT/SGPT 44 U/L (13-56); Albumin, Serum 3.7 g/dL (3.2-5.0); Alkaline Phosphatase 92 U/L (45-117); Anion Gap 6 (5-15); BUN 13 mg/dL (7-18); BUN/Creat Ratio 18.5 RATIO (10-20); Calcium,Total 8.8 mg/dL (8.5-10.1); Chloride 102 mmol/L (98-107); EST Glomerular Filtration Rate 89 mL/min (>60); Est Glom Filt Rate - Afr Amer 107 mL/min (>60); Globulin 4.1 g/dL (2.2-4.2); Glucose 95 mg/dL (74-106); Potassium 3.3 mmol/L (3.5-5.1); Protein, Total 7.8 g/dL (6.4-8.2); Sodium Level 137 mmol/L (136-145)
== END ==
PROVIDERS: PCP Family Medicine; Referring Provider Internal Medicine Rheumatology; Visit Provider Internal Medicine Rheumatology
DX: M06.4 Inflammatory polyarthropathy (principal); M19.041 Primary osteoarthritis, right hand; M17.0 Bilateral primary osteoarthritis of knee; M79.7 Fibromyalgia; M35.00 Sjogren syndrome, unspecified; Q66.71 Congenital pes cavus, right foot; I10 Essential (primary) hypertension; Z79.899 Other long term (current) drug therapy
CPT/HCPCS: 36415; 80053; 85025

== ENCOUNTER → 2019-12-22 10:32 | Outpatient (CLI) | payer MEDICARE, SELFPAY ==
[2018-12-15 07:53] VITALS: BMI 38.6
--- NOTE | 2019-12-22 10:36 | BI_ITS ---
MAMMOGRAPHY - BILATERAL SCREENING REASON FOR EXAM: Female, 64 years old. Routine annual screening examination. PERTINENT HISTORY: Non-contributory. TECHNIQUE: Digital bilateral breast hellen (3D mammographic acquisition) in the CC and MLO projections. 2-D mediolateral oblique (MLO) and craniocaudad (CC) views of both breasts were obtained. CAD: Full Field Digital Mammography with Computer Added Detection was performed. COMPARISON: Comparison is made with prior examination of October 15, 2018 and August 15, 2017. FINDINGS: Breast Composition: There are scattered areas of fibroglandular density. There are no dominant masses or suspicious calcifications. Stable small benign-appearing bilateral axillary lymph nodes. No other significant abnormalities are identified. There has been no significant change since the prior study. BI/SCREEN MAMM (CAD) W/HELLEN BILAT IMPRESSION: Stable bilateral screening mammogram. Yearly follow-up mammogram recommended. (A) ASSESSMENT CATEGORY: BIRADS Category 2: Benign. A letter regarding these results will be sent to the patient by the facility within 30 days. Approximately 10% of breast cancers are not detected by mammography. A normal mammogram should not delay biopsy of a clinically suspicious abnormality. [id number] Electronically Signed: Tim Jenkins, at 13:18 EDT , Service support ,
== END ==
PROVIDERS: Family Provider Family Medicine; PCP Family Medicine; Referring Provider Family Medicine; Visit Provider Family Medicine
DX: Z12.31 Encounter for screening mammogram for malignant neoplasm of breast (principal)
CPT/HCPCS: 77063; 77067

== ENCOUNTER → 2019-12-28 08:01 | Outpatient (CLI) | payer MEDICARE, SELFPAY ==
[2018-12-15 07:53] VITALS: BMI 38.6
[2019-12-28 10:20] LABS: Absolute Lymphocyte Count 1.83 X10^3/uL (0.83-4.51); Absolute Neutrophil Count 3.8 X10^3/uL (2.0-7.7); Basophil# 0.03 X10^3/uL; Basophil% 0.5 % (0-1); Eosinophil# 0.12 X10^3/uL; Eosinophils% 1.9 % (0-5); Hematocrit 40.8 % (37-47); Hemoglobin 13.3 g/dL (12.0-15.0); Lymphocyte # 1.83 X10^3/ul (4.0); Lymphocyte % 29.3 % (19-41); Mean Corp Hgb Conc 32.6 g/dL (32-36); Mean Corpuscular Hgb 30.9 pg (27.0-32.0); Mean Corpuscular Volume 94.9 fL (81-99); Mean Platelet Vol. 10.1 fl (6.2-12.0); Monocyte# 0.47 X10^3/uL; Monocyte% 7.5 % (0-10); NRBC Flagged by Analyzer 0 % (0-5); Neutrophil # 3.78 X10^3/uL (2.7-7.7); Neutrophil % 60.6 % (47-70); Platelet Count 273 K/mm3 (150-450); RBC Distribution Width CV 13.2 % (11.6-14.6); RBC Distribution Width SD 45.5 fl (35.1-43.9); White Blood Count 6.2 K/mm3 (4.4-11.0)
[2019-12-28 10:31] LABS: ALB/GLOB Ratio 0.8 RATIO (0.9-2.4); AST(SGOT) 27 U/L (15-37); Alanine Aminotransfer ALT/SGPT 37 U/L (13-56); Albumin, Serum 3.6 g/dL (3.2-5.0); Alkaline Phosphatase 88 U/L (45-117); Anion Gap 9 (5-15); BUN 12 mg/dL (7-18); BUN/Creat Ratio 14.2 RATIO (10-20); Calcium,Total 9.2 mg/dL (8.5-10.1); Chloride 103 mmol/L (98-107); Creatinine, Serum 0.84 mg/dL (0.55-1.02); EST Glomerular Filtration Rate 72 mL/min (>60); Est Glom Filt Rate - Afr Amer 87 mL/min (>60); Globulin 4.3 g/dL (2.2-4.2); Glucose 190 mg/dL (74-106); Potassium 4.1 mmol/L (3.5-5.1); Protein, Total 7.9 g/dL (6.4-8.2); Sodium Level 141 mmol/L (136-145)
== END ==
PROVIDERS: PCP Family Medicine; Referring Provider Internal Medicine Rheumatology; Visit Provider Internal Medicine Rheumatology
DX: M06.4 Inflammatory polyarthropathy (principal); M19.041 Primary osteoarthritis, right hand; M17.0 Bilateral primary osteoarthritis of knee; M79.7 Fibromyalgia; M35.00 Sjogren syndrome, unspecified; Q66.71 Congenital pes cavus, right foot; I10 Essential (primary) hypertension; Z79.899 Other long term (current) drug therapy
CPT/HCPCS: 36415; 80053; 85025

== ENCOUNTER → 2020-02-01 10:34 | Outpatient (CLI) | payer MEDICARE, SELFPAY ==
[2018-12-15 07:53] VITALS: BMI 38.6
[2020-02-01 12:54] LABS: Anion Gap 3 (5-15); BUN 14 mg/dL (7-18); BUN/Creat Ratio 17.6 RATIO (10-20); Chloride 105 mmol/L (98-107); EST Glomerular Filtration Rate 77 mL/min (>60); Est Glom Filt Rate - Afr Amer 93 mL/min (>60); Glucose 102 mg/dL (74-106); Potassium 3.9 mmol/L (3.5-5.1); Sodium Level 139 mmol/L (136-145)
== END ==
PROVIDERS: PCP Family Medicine; Referring Provider Family Medicine; Visit Provider Family Medicine
DX: I10 Essential (primary) hypertension (principal)
CPT/HCPCS: 36415; 80048

== ENCOUNTER → 2020-03-28 08:21 | Outpatient (CLI) | payer MEDICARE, SELFPAY ==
[2018-12-15 07:53] VITALS: BMI 38.6
[2020-03-28 10:16] LABS: Absolute Lymphocyte Count 1.57 X10^3/uL (0.83-4.51); Basophil# 0.02 X10^3/uL; Basophil% 0.4 % (0-1); Eosinophil# 0.09 X10^3/uL; Eosinophils% 1.8 % (0-5); Hematocrit 40.4 % (37-47); Hemoglobin 12.7 g/dL (12.0-15.0); Lymphocyte # 1.57 X10^3/ul (4.0); Lymphocyte % 31.5 % (19-41); Mean Corp Hgb Conc 31.4 g/dL (32-36); Mean Corpuscular Hgb 30.2 pg (27.0-32.0); Mean Corpuscular Volume 96.2 fL (81-99); Mean Platelet Vol. 10.1 fl (6.2-12.0); Monocyte# 0.28 X10^3/uL; Monocyte% 5.6 % (0-10); NRBC Flagged by Analyzer 0 % (0-5); Neutrophil # 3.01 X10^3/uL (2.7-7.7); Neutrophil % 60.5 % (47-70); Platelet Count 249 K/mm3 (150-450); RBC Distribution Width CV 12.9 % (11.6-14.6); RBC Distribution Width SD 44.7 fl (35.1-43.9)
[2020-03-28 10:47] LABS: ALB/GLOB Ratio 0.9 RATIO (0.9-2.4); AST(SGOT) 21 U/L (15-37); Alanine Aminotransfer ALT/SGPT 28 U/L (13-56); Albumin, Serum 3.6 g/dL (3.2-5.0); Alkaline Phosphatase 90 U/L (45-117); Anion Gap 3 (5-15); BUN 15 mg/dL (7-18); BUN/Creat Ratio 17.3 RATIO (10-20); Calcium,Total 8.8 mg/dL (8.5-10.1); Chloride 103 mmol/L (98-107); Creatinine, Serum 0.86 mg/dL (0.55-1.02); EST Glomerular Filtration Rate 70 mL/min (>60); Est Glom Filt Rate - Afr Amer 85 mL/min (>60); Globulin 4.1 g/dL (2.2-4.2); Glucose 144 mg/dL (74-106); Potassium 3.7 mmol/L (3.5-5.1); Protein, Total 7.7 g/dL (6.4-8.2); Sodium Level 139 mmol/L (136-145)
== END ==
PROVIDERS: PCP Family Medicine; Referring Provider Internal Medicine Rheumatology; Visit Provider Internal Medicine Rheumatology
DX: M06.4 Inflammatory polyarthropathy (principal); M19.041 Primary osteoarthritis, right hand; M17.0 Bilateral primary osteoarthritis of knee; M79.7 Fibromyalgia; M35.00 Sjogren syndrome, unspecified; Q66.71 Congenital pes cavus, right foot; I10 Essential (primary) hypertension; Z79.899 Other long term (current) drug therapy
CPT/HCPCS: 36415; 80053; 85025

== ENCOUNTER → 2020-06-07 15:15 | Outpatient (CLI) | payer MEDICARE, SELFPAY ==
[2018-12-15 07:53] VITALS: BMI 38.6
--- NOTE | 2020-06-07 15:18 | RAD_ITS ---
STUDY: X-RAY - UNILATERAL RIBS ( LEFT ) WITH CHEST REASON FOR EXAM: Female, 64 years old. left chest wall contusion from recent fall/pain TECHNIQUE - RIBS: 4 view(s) of the ribs. TECHNIQUE - CHEST: 1 view COMPARISON: Prior chest radiograph of 06/25/2018 FINDINGS - RIBS: Normal visualized ribs without a demonstrated fracture. FINDINGS - CHEST: Limited inspiration with mild generalized atelectatic changes. Negative for major consolidation, pleural effusion or pneumothorax. There is no demonstrated pleural abnormality. Normal size heart. Normal mediastinum and eduarda. Normal visualized pulmonary arteries. There is atherosclerotic calcification of the aortic arch with tortuosity. There are diffuse degenerative changes of the visualized thoracic spine. There is no demonstrated abnormality of the visualized soft tissue structures of the upper abdomen. RAD/Ribs Uni Min 3V w/PA Chest IMPRESSION: RIBS: Normal x-ray examination of the ribs. CHEST: Limited inspiration with mild bibasilar atelectatic changes. Negative for major consolidation, pleural effusion or pneumothorax. Stable cardiac size from prior exam. Electronically Signed: Bindu Hill MD at 21:48 EST , Service support ,
--- NOTE | 2020-06-07 15:18 | RAD_ITS ---
STUDY: X-RAY - LEFT WRIST REASON FOR EXAM: Female, 64 years old. recent fall, left wrist pain TECHNIQUE: 3 view(s) of the wrist were obtained. COMPARISON: None. FINDINGS: Normal visualized distal radius and ulna. Mild degenerative changes of the radiocarpal joint. Normal distal radioulnar articulation. Normal carpal bones. Mild degenerative changes of the navicular multangular articulation. There is degenerative arthrosis of the carpometacarpal articulation of the thumb. Normal second through fifth carpometacarpal articulations. Normal visualized metacarpal bones. The soft tissue structures are unremarkable. There is no demonstrated acute fracture. RAD/Wrist min 3 Views IMPRESSION: Negative for fracture or dislocation. Mild degenerative arthrosis of the radiocarpal joint and the navicular multangular articulation. Moderate degenerative arthrosis at the first carpometacarpal joint. Electronically Signed: Bindu Hill MD at 21:44 EST , Service support ,
== END ==
PROVIDERS: PCP Family Medicine; Referring Provider Family Medicine; Visit Provider Family Medicine
DX: S60.212A Contusion of left wrist, initial encounter (principal); S20.212A Contusion of left front wall of thorax, initial encounter
CPT/HCPCS: 71101; 73110

== ENCOUNTER → 2020-06-20 13:29 | Outpatient (CLI) | payer MEDICARE, SELFPAY ==
[2018-12-15 07:53] VITALS: BMI 38.6
[2020-06-20 15:09] LABS: Absolute Lymphocyte Count 2.08 X10^3/uL (0.83-4.51); Basophil# 0.02 X10^3/uL; Basophil% 0.4 % (0-1); Eosinophil# 0.07 X10^3/uL; Eosinophils% 1.3 % (0-5); Hematocrit 41.4 % (37-47); Hemoglobin 13.2 g/dL (12.0-15.0); Lymphocyte # 2.08 X10^3/ul (4.0); Lymphocyte % 37.1 % (19-41); Mean Corp Hgb Conc 31.9 g/dL (32-36); Mean Corpuscular Hgb 30.2 pg (27.0-32.0); Mean Corpuscular Volume 94.7 fL (81-99); Mean Platelet Vol. 10.3 fl (6.2-12.0); Monocyte# 0.45 X10^3/uL; NRBC Flagged by Analyzer 0 % (0-5); Neutrophil # 2.98 X10^3/uL (2.7-7.7); Neutrophil % 53.2 % (47-70); Platelet Count 278 K/mm3 (150-450); RBC Distribution Width CV 12.2 % (11.6-14.6); RBC Distribution Width SD 42.3 fl (35.1-43.9); Red Blood Count 4.37 M/mm3 (4.2-5.4); White Blood Count 5.6 K/mm3 (4.4-11.0)
[2020-06-20 15:33] LABS: ALB/GLOB Ratio 0.9 RATIO (0.9-2.4); AST(SGOT) 16 U/L (15-37); Alanine Aminotransfer ALT/SGPT 28 U/L (13-56); Albumin, Serum 3.9 g/dL (3.2-5.0); Alkaline Phosphatase 104 U/L (45-117); Anion Gap 5 (5-15); BUN 14 mg/dL (7-18); Calcium,Total 9.4 mg/dL (8.5-10.1); Chloride 103 mmol/L (98-107); Creatinine, Serum 0.74 mg/dL (0.55-1.02); EST Glomerular Filtration Rate 84 mL/min (>60); Est Glom Filt Rate - Afr Amer 102 mL/min (>60); Globulin 4.2 g/dL (2.2-4.2); Glucose 86 mg/dL (74-106); Potassium 4.1 mmol/L (3.5-5.1); Protein, Total 8.1 g/dL (6.4-8.2); Sodium Level 139 mmol/L (136-145)
== END ==
PROVIDERS: PCP Family Medicine; Referring Provider Internal Medicine Rheumatology; Visit Provider Internal Medicine Rheumatology
DX: M06.4 Inflammatory polyarthropathy (principal); M79.7 Fibromyalgia; M18.12 Unilateral primary osteoarthritis of first carpometacarpal joint, left hand; M19.041 Primary osteoarthritis, right hand; M17.0 Bilateral primary osteoarthritis of knee; M35.00 Sjogren syndrome, unspecified; I10 Essential (primary) hypertension; Z79.899 Other long term (current) drug therapy
CPT/HCPCS: 36415; 80053; 85025

== ENCOUNTER → 2020-07-18 13:47 | Outpatient (CLI) | payer MEDICARE, SELFPAY ==
[2018-12-15 07:53] VITALS: BMI 38.6
== END ==
PROVIDERS: PCP Family Medicine; Visit Provider Registered Nurse
DX: B34.9 Viral infection, unspecified (principal)
CPT/HCPCS: 87635; U0003

== ENCOUNTER 2020-07-21 10:06 | Emergency (ER) | payer MEDICARE, SELFPAY ==
[2018-12-15 07:53] VITALS: BMI 38.6
[2020-07-21 10:07] VITALS: BP 131/88; PULSE 85; RESP 17; TEMP 36.6; O2SAT 96; BMI 37.9
--- NOTE | 2020-07-21 10:29 | CT_ITS ---
STUDY: CT ABDOMEN AND PELVIS WITHOUT CONTRAST REASON FOR EXAM: Female, 64 years old. N/V/D, HX KS, TUBAL LIGATION, APPENDECTOMY, CHOLECYSTECTOMY, RENAL SURGERY RADIATION DOSAGE (If Supplied By Facility): CTDIvol = ( 23.15 ) mGy, DLP = ( 1254.90 ) mGycm TECHNIQUE: Transaxial images were obtained from the dome of the diaphragm to the symphysis pubis without oral contrast, and without intravenous contrast. Sagittal and coronal images were reconstructed. Individualized dose optimization techniques were used for this CT. COMPARISON: November 24, 2018 and September 11, 2010 FINDINGS: The visualized lung bases are unremarkable. The visualized portions of the heart are within normal limits. Normal liver. There are surgical clips in the gallbladder fossa consistent with a prior cholecystectomy. Normal spleen. Normal pancreas. Normal bilateral adrenal glands. There is a 0.3 cm stone of the mid aspect of the right kidney. Normal left kidney. Normal visualized stomach. Normal small intestine. There are a few colonic diverticula consistent with diverticulosis. There are surgical clips in the region of the appendix consistent with a prior appendectomy. Normal abdominal aorta. Normal inferior vena cava. Normal retroperitoneum. There are mildly enlarged mesenteric lymph nodes measuring up to 1.2 cm. Normal urinary bladder. There is atrophy of the uterus. There is no free fluid in the abdomen or pelvis. Normal abdominal wall. Degenerative change of the spine. CT/Abdomen/Pelvis without Cont IMPRESSION: Right renal stone. No hydronephrosis. Colonic diverticulosis. Electronically Signed: Shaquille Bowling MD at 12:12 EST , Service support ,
--- NOTE | 2020-07-21 10:43 | ED.VIS.GEN ---
History of Present Illness Chief Complaint: Nausea/Vomiting/Diarrhea Informant: Patient Onset: Weeks Maximum Severity: Mild Narrative: Patient complains of copious diarrhea for about a week she indicates she stopped antibiotic therapy end of May related to infected tooth that was subsequently extracted her dental issues are resolved she has a persistence of the watery diarrhea, she has had no fever no cough intermittent crampy abdominal pain, has been taking [id number] meds like Pepto-Bismol with no improvement, she had persistent diarrhea today and she came in for evaluation. She has a prior colonoscopy that showed polyps nothing else acute she has no history of any type of GI ailments she status post cholecystectomy reports she has had colitis in the past that causes cramps and diarrhea no known history of diverticulitis, or C. difficile. No blood in the stool no fever no cough she is able to take liquids and slight foods by mouth Past Medical History - Allergies and Home Meds Allergies/Adverse Reactions: Allergies benzocaine Adverse Reaction (Verified 07/21/20 10:07) CONTACT DERMATITIS codeine Adverse Reaction (Verified 07/21/20 10:07) Nausea/Vom/Diarrhea prednisone Adverse Reaction (Verified 07/21/20 10:07) inside of mouth raw INSIDE MOUTH OF RAW procaine Adverse Reaction (Verified 07/21/20 10:07) CONTACT DERMATITIS tetracaine Adverse Reaction (Verified 07/21/20 10:07) CONTACT DERMATITIS Primary Care Physician: Kateryna Medina MD [Primary Care Provider] - Past Medical History: - - Recent antibiotics for dental extraction Surgical History: cholecystectomy Smoking Status: Never smoker Review of Systems General: Denies: Chills, Fever, Sweats Eyes: Denies: Visual changes - bilaterally, Diplopia ENT: Denies: Rhinorrhea, Sore throat Cardiovascular: Denies: Chest pain, Palpitations Respiratory: Denies: Dyspnea, Cough, Dyspnea on exertion Gastrointestinal: Reports: Diarrhea. Denies: Abdominal pain, Nausea, Vomiting, Melena, Hematochezia Genitourinary: Denies: Dysuria, Hematuria, Frequency Musculoskeletal: Denies: Back pain, Extremity Pain Skin: Denies: Rash, Wounds Neurological: Denies: Headache, Weakness, Numbness Physical Exam Vital Signs/Narrative: Vital Signs Temp Pulse Resp BP Pulse Ox 07/21/20 10:07 97.8 F 85 17 131/88 H 96 General: Well nourished, Well developed, No Acute Distress Head: Normocephalic, Atraumatic Eyes: Perrl, EOMI ENT: Moist mucous membranes, No rhinorrhea Neck: Supple, Nontender Cardiovascular: Regular rate, Regular rhythm, No murmurs Respiratory: No distress, CTA bilaterally, Chest nontender Abdomen: Soft, Nontender, Nondistended, Normal bowel sounds, - - She has a slight distended abdomen at baseline, there is no rebound guarding organomegaly there is a nonspecific generalized crampy type discomfort she does not feel the urge to pass stool in the ED as she just passed loose watery stool prior to coming to the emergency department Back: Nontender, Normal Inspection Extremities: Nontender, No edema Skin: Normal color, No rash Neurological: Alert, Oriented x3, Cranial nerves II-XII grossly intact, Normal Strength, Normal Sensation Psychological: Normal affect, Normal Mood Diagnostic/Tx/Re-eval - Medical Decision Making Given her age the antibiotics all the above ED screening evaluation stool for C. difficile IV fluids pain management Patient's ED screening evaluation generally unremarkable see those reports, UA shows signs of dehydration, she received IV fluids, CT unremarkable, she has been unable to void stool since she has been in the ED She is feeling better discussed all the above with her given all the above she wants to go home bland diet follow-up with outpatient providers and return for change in symptoms Home stable Final impression diarrhea ED Disposition - Plan for ED Patient: Diagnosis: Diarrhea Instructions: ED Diet for Vomiting or Diarrhea Adult Referrals: Kateryna Medina MD [Primary Care Provider] -
[2020-07-21] MEDS: Ondansetron 4 MG/2 ML Vial IV (10:44)
[2020-07-21] MEDS: 0.9% Normal Saline 1,000 ML 1000 ML IV (10:44)
[2020-07-21 10:56] LABS: Absolute Lymphocyte Count 1.48 X10^3/uL (0.83-4.51); Absolute Neutrophil Count 3.1 X10^3/uL (2.0-7.7); Basophil# 0.02 X10^3/uL; Basophil% 0.4 % (0-1); Eosinophil# 0.11 X10^3/uL; Hematocrit 42.7 % (37-47); Hemoglobin 14.1 g/dL (12.0-15.0); Lymphocyte # 1.48 X10^3/ul (4.0); Lymphocyte % 26.9 % (19-41); Mean Corpuscular Hgb 29.7 pg (27.0-32.0); Mean Corpuscular Volume 90.1 fL (81-99); Mean Platelet Vol. 9.7 fl (6.2-12.0); Monocyte# 0.74 X10^3/uL; Monocyte% 13.5 % (0-10); NRBC Flagged by Analyzer 0 % (0-5); Neutrophil # 3.14 X10^3/uL (2.7-7.7); Platelet Count 246 K/mm3 (150-450); RBC Distribution Width CV 12.3 % (11.6-14.6); RBC Distribution Width SD 40.5 fl (35.1-43.9); Red Blood Count 4.74 M/mm3 (4.2-5.4); White Blood Count 5.5 K/mm3 (4.4-11.0)
--- NOTE | 2020-07-21 11:07 | ED.RN ---
Pt refused pain medications at this time.
[2020-07-21 11:08] LABS: Mucous, Urine 0 SEEN /hpf (<or=2+)
[2020-07-21 11:10] LABS: ALB/GLOB Ratio 0.9 RATIO (0.9-2.4); AST(SGOT) 28 U/L (15-37); Alanine Aminotransfer ALT/SGPT 31 U/L (13-56); Albumin, Serum 3.5 g/dL (3.2-5.0); Alkaline Phosphatase 91 U/L (45-117); Anion Gap 7 (5-15); BUN 17 mg/dL (7-18); BUN/Creat Ratio 18.3 RATIO (10-20); Calcium,Total 8.6 mg/dL (8.5-10.1); Chloride 104 mmol/L (98-107); Creatinine, Serum 0.93 mg/dL (0.55-1.02); EST Glomerular Filtration Rate 64 mL/min (>60); Est Glom Filt Rate - Afr Amer 78 mL/min (>60); Estimated Creatinine Clearance 56.46 ml/min; Globulin 3.9 g/dL (2.2-4.2); Glucose 97 mg/dL (74-106); Lipase 118 U/L (73-393); Potassium 3.2 mmol/L (3.5-5.1); Protein, Total 7.4 g/dL (6.4-8.2); Sodium Level 137 mmol/L (136-145)
[2020-07-21 11:26] LABS: Color, Urine Yellow (Yellow); Glucose, Dipstick Normal (Normal); Urine Clarity Sl Cldy (Clear)
[2020-07-21 11:27] LABS: Ketone-Dipstick 5 mg/dl (Negative); Leukocyte Esterase-Dipstick 100 /ul (Negative); Nitrite-Dipstick Negative (Negative); Occult Blood-Urine Negative /ul (Negative); Protein-Dipstick 100 mg/dl (Negative); Specific Gravity, Urine 1.025 (1.002-1.030); Urine Bilirubin Dipstick 3 mg/dL (Negative)
[2020-07-21 11:28] LABS: Urine Urobilinogen 1 mg/dl (Normal)
[2020-07-21 11:38] LABS: Bacteria 2+ /hpf (None Seen); Red Blood Cells-Urine 0-5 SEEN /hpf (0-5); Renal Epithelial Cells 0-5 SEEN /hpf (0-5); Squamous Epithelial Cells - UA 10-25 SEEN /hpf (5-10); White Blood Cells 5-10 SEEN /hpf (0-5)
[2020-07-21 11:39] LABS: Fine Granular Cast- Urine 0-5 SEEN /lpf (0-5); Hyaline Cast 25-50 SEEN /lpf (0-5)
[2020-07-21 13:09] VITALS: RESP 17
== END 2020-07-21 13:11 | disposition home or self-care (01) ==
LOC: ED 11:14
PROVIDERS: Emergency Provider Emergency Medicine; PCP Family Medicine
DX: R19.7 Diarrhea, unspecified (principal)
CPT/HCPCS: 74176; 80053; 81001; 83690; 85025; 87493; 87506; 96361; 96374; 96375; 99283; J7030; A4216; J2405

== ENCOUNTER → 2020-07-25 11:49 | Outpatient (CLI) | payer MEDICARE, SELFPAY ==
[2020-07-21 10:07] VITALS: BMI 37.9
== END ==
PROVIDERS: PCP Family Medicine; Visit Provider Family Medicine
DX: R19.7 Diarrhea, unspecified (principal)
CPT/HCPCS: 87177; 87209; 87506

== ENCOUNTER → 2020-08-01 10:29 | Outpatient (CLI) | payer MEDICARE, SELFPAY ==
[2020-07-21 10:07] VITALS: BMI 37.9
[2020-08-01 12:51] LABS: Amylase 75 U/L (25-115); Anion Gap 7 (5-15); BUN 11 mg/dL (7-18); BUN/Creat Ratio 16.6 RATIO (10-20); Calcium,Total 8.9 mg/dL (8.5-10.1); Chloride 105 mmol/L (98-107); Creatinine, Serum 0.66 mg/dL (0.55-1.02); EST Glomerular Filtration Rate 95 mL/min (>60); Est Glom Filt Rate - Afr Amer 115 mL/min (>60); Glucose 100 mg/dL (74-106); Lipase 442 U/L (73-393); Potassium 3.2 mmol/L (3.5-5.1); Sodium Level 143 mmol/L (136-145)
== END ==
PROVIDERS: PCP Family Medicine; Referring Provider Family Medicine; Visit Provider Family Medicine
DX: R19.7 Diarrhea, unspecified (principal)
CPT/HCPCS: 36415; 80048; 82150; 83690

== ENCOUNTER → 2020-08-08 09:14 | Outpatient (CLI) | payer MEDICARE, SELFPAY ==
[2020-07-21 10:07] VITALS: BMI 37.9
--- NOTE | 2020-08-08 09:18 | US_ITS ---
STUDY: ABDOMINAL ULTRASOUND - RIGHT UPPER QUADRANT REASON FOR VISIT: Female, 64 years old ELEVATED PANCREATIC ENZYMES TECHNIQUE: Ultrasound evaluation of the right upper quadrant was performed with real-time and static paul-scale imaging. TECHNICAL QUALITY: Limited. Examination limited by bowel gas. COMPARISON: None. FINDINGS: Liver: The liver measures 17.5 cm. There is increased echogenicity consistent with fatty infiltration. The bile ducts are within normal limits. There is hepatic color flow. The direction of portal flow is hepatopetal. There is no demonstrated mass lesion. Gallbladder: The patient is status post cholecystectomy. Common Bile Duct (C.B.D.): The common bile duct measures 8.6 mm. Pancreas: Normal size of the head, body of the pancreas. The tail portion is obscured due to overlying bowel gas. There is increased echogenicity of the pancreas. There is no demonstrated pancreatic mass or cyst. Right Kidney: Normal size of the right kidney. The right kidney measures 11 cm x 5.8 cm x 4.6 cm. Normal renal cortex. The right cortex measures 1.5 cm. There is no demonstrated renal mass or cyst. There is no right hydronephrosis. There is a 3 mm x 4 mm x 2 mm intrarenal calculus. US/Abdomen Limited IMPRESSION: Fatty infiltration of the liver. The patient is status post cholecystectomy. Small right intrarenal calculus. Electronically Signed: Tim Jenkins, at 11:07 EST , Service support ,
== END ==
PROVIDERS: PCP Family Medicine; Referring Provider Family Medicine; Visit Provider Family Medicine
DX: R74.8 Abnormal levels of other serum enzymes (principal)
CPT/HCPCS: 76705

== ENCOUNTER → 2020-09-05 10:33 | Outpatient (CLI) | payer MEDICARE, SELFPAY ==
[2020-09-05 13:09] LABS: Absolute Lymphocyte Count 1.64 X10^3/uL (0.83-4.51); Absolute Neutrophil Count 3.7 X10^3/uL (2.0-7.7); Basophil# 0.03 X10^3/uL; Basophil% 0.5 % (0-1); Eosinophil# 0.08 X10^3/uL; Eosinophils% 1.4 % (0-5); Hematocrit 42.3 % (37-47); Hemoglobin 13.4 g/dL (12.0-15.0); Lymphocyte # 1.64 X10^3/ul (4.0); Mean Corp Hgb Conc 31.7 g/dL (32-36); Mean Corpuscular Volume 94.6 fL (81-99); Mean Platelet Vol. 10.3 fl (6.2-12.0); Monocyte# 0.37 X10^3/uL; Monocyte% 6.3 % (0-10); NRBC Flagged by Analyzer 0 % (0-5); Neutrophil # 3.73 X10^3/uL (2.7-7.7); Neutrophil % 63.6 % (47-70); Platelet Count 282 K/mm3 (150-450); RBC Distribution Width CV 12.8 % (11.6-14.6); RBC Distribution Width SD 43.9 fl (35.1-43.9); Red Blood Count 4.47 M/mm3 (4.2-5.4); White Blood Count 5.9 K/mm3 (4.4-11.0)
[2020-09-05 13:33] LABS: ALB/GLOB Ratio 0.8 RATIO (0.9-2.4); AST(SGOT) 18 U/L (15-37); Alanine Aminotransfer ALT/SGPT 29 U/L (13-56); Albumin, Serum 3.9 g/dL (3.2-5.0); Alkaline Phosphatase 93 U/L (45-117); Anion Gap 5 (5-15); BUN 17 mg/dL (7-18); BUN/Creat Ratio 22.3 RATIO (10-20); Calcium,Total 9.7 mg/dL (8.5-10.1); Chloride 103 mmol/L (98-107); Creatinine, Serum 0.76 mg/dL (0.55-1.02); EST Glomerular Filtration Rate 81 mL/min (>60); Est Glom Filt Rate - Afr Amer 98 mL/min (>60); Globulin 4.8 g/dL (2.2-4.2); Glucose 102 mg/dL (74-106); Potassium 4.1 mmol/L (3.5-5.1); Protein, Total 8.7 g/dL (6.4-8.2); Sodium Level 138 mmol/L (136-145)
== END ==
PROVIDERS: PCP Family Medicine; Referring Provider Internal Medicine Rheumatology; Visit Provider Internal Medicine Rheumatology
DX: M06.4 Inflammatory polyarthropathy (principal); M79.7 Fibromyalgia; M18.12 Unilateral primary osteoarthritis of first carpometacarpal joint, left hand; M19.041 Primary osteoarthritis, right hand; M17.0 Bilateral primary osteoarthritis of knee; M35.00 Sjogren syndrome, unspecified; Q66.71 Congenital pes cavus, right foot; I10 Essential (primary) hypertension; Z79.899 Other long term (current) drug therapy
CPT/HCPCS: 36415; 80053; 85025

== ENCOUNTER 2020-10-03 15:35 | Outpatient (RCR) | payer MEDICARE, SELFPAY ==
[2020-10-03] MEDS: COVID-19 VACC, MRNA(PFIZER)/PF 30 MCG/0.3 ML SYRINGE IM (09:36)
[2020-10-24] MEDS: COVID-19 VACC, MRNA(PFIZER)/PF 30 MCG/0.3 ML SYRINGE IM (09:17)
== END 2021-01-02 23:59 ==
LOC: IMMUN 15:35
PROVIDERS: PCP Family Medicine; Visit Provider Family Medicine
DX: Z23 Encounter for immunization (principal)
CPT/HCPCS: 0001A; 0002A; 91300

== ENCOUNTER → 2020-12-05 07:59 | Outpatient (CLI) | payer MEDICARE, SELFPAY ==
[2020-12-05 10:07] LABS: Absolute Lymphocyte Count 1.97 X10^3/uL (0.83-4.51); Absolute Neutrophil Count 3.1 X10^3/uL (2.0-7.7); Basophil# 0.03 X10^3/uL; Basophil% 0.5 % (0-1); Eosinophils% 1.8 % (0-5); Hematocrit 38.7 % (37-47); Hemoglobin 12.3 g/dL (12.0-15.0); Lymphocyte # 1.97 X10^3/ul (0.83-4.51); Lymphocyte % 35.1 % (19-41); Mean Corp Hgb Conc 31.8 g/dL (32-36); Mean Corpuscular Hgb 30.1 pg (27.0-32.0); Mean Corpuscular Volume 94.9 fL (81-99); Mean Platelet Vol. 9.9 fl (6.2-12.0); Monocyte# 0.36 X10^3/uL; Monocyte% 6.4 % (0-10); NRBC Flagged by Analyzer 0 % (0-5); Neutrophil # 3.14 X10^3/uL (2.7-7.7); Platelet Count 256 K/mm3 (150-450); RBC Distribution Width CV 12.8 % (11.6-14.6); RBC Distribution Width SD 44.2 fl (35.1-43.9); Red Blood Count 4.08 M/mm3 (4.2-5.4); White Blood Count 5.6 K/mm3 (4.4-11.0)
[2020-12-05 10:36] LABS: ALB/GLOB Ratio 0.8 RATIO (0.9-2.4); AST(SGOT) 14 U/L (15-37); Alanine Aminotransfer ALT/SGPT 24 U/L (13-56); Albumin, Serum 3.5 g/dL (3.2-5.0); Alkaline Phosphatase 85 U/L (45-117); Anion Gap 5 (5-15); BUN 14 mg/dL (7-18); BUN/Creat Ratio 18.3 RATIO (10-20); Calcium,Total 9.3 mg/dL (8.5-10.1); Chloride 103 mmol/L (98-107); Creatinine, Serum 0.76 mg/dL (0.55-1.02); EST Glomerular Filtration Rate 80 mL/min (>60); Est Glom Filt Rate - Afr Amer 97 mL/min (>60); Globulin 4.2 g/dL (2.2-4.2); Glucose 169 mg/dL (74-106); Potassium 4.1 mmol/L (3.5-5.1); Protein, Total 7.7 g/dL (6.4-8.2); Sodium Level 139 mmol/L (136-145)
== END ==
PROVIDERS: PCP Family Medicine; Referring Provider Internal Medicine Rheumatology; Visit Provider Internal Medicine Rheumatology
DX: M06.4 Inflammatory polyarthropathy (principal); M79.7 Fibromyalgia; M18.12 Unilateral primary osteoarthritis of first carpometacarpal joint, left hand; M19.041 Primary osteoarthritis, right hand; M17.0 Bilateral primary osteoarthritis of knee; M35.00 Sjogren syndrome, unspecified; Q66.71 Congenital pes cavus, right foot; I10 Essential (primary) hypertension; Z79.899 Other long term (current) drug therapy
CPT/HCPCS: 36415; 80053; 85025

== ENCOUNTER → 2021-02-06 09:39 | Outpatient (CLI) | payer MEDICARE, SELFPAY ==
[2021-02-06 12:09] LABS: Absolute Lymphocyte Count 1.63 X10^3/uL (0.83-4.51); Absolute Neutrophil Count 3.4 X10^3/uL (2.0-7.7); Basophil# 0.03 X10^3/uL; Basophil% 0.5 % (0-1); Eosinophil# 0.11 X10^3/uL; Hematocrit 39.8 % (37-47); Hemoglobin 12.7 g/dL (12.0-15.0); Lymphocyte # 1.63 X10^3/ul (0.83-4.51); Lymphocyte % 29.5 % (19-41); Mean Corp Hgb Conc 31.9 g/dL (32-36); Mean Corpuscular Volume 94.1 fL (81-99); Mean Platelet Vol. 10.4 fl (6.2-12.0); Monocyte# 0.38 X10^3/uL; Monocyte% 6.9 % (0-10); NRBC Flagged by Analyzer 0 % (0-5); Neutrophil # 3.37 X10^3/uL (2.7-7.7); Neutrophil % 60.9 % (47-70); Platelet Count 248 K/mm3 (150-450); RBC Distribution Width CV 11.9 % (11.6-14.6); RBC Distribution Width SD 41.4 fl (35.1-43.9); Red Blood Count 4.23 M/mm3 (4.2-5.4); White Blood Count 5.5 K/mm3 (4.4-11.0)
[2021-02-06 12:49] LABS: ALB/GLOB Ratio 0.9 RATIO (0.9-2.4); AST(SGOT) 24 U/L (15-37); Alanine Aminotransfer ALT/SGPT 26 U/L (13-56); Albumin, Serum 3.5 g/dL (3.2-5.0); Alkaline Phosphatase 84 U/L (45-117); Anion Gap 6 (5-15); BUN 15 mg/dL (7-18); BUN/Creat Ratio 18.3 RATIO (10-20); Calcium,Total 8.8 mg/dL (8.5-10.1); Chloride 104 mmol/L (98-107); Creatinine, Serum 0.82 mg/dL (0.55-1.02); EST Glomerular Filtration Rate 74 mL/min (>60); Est Glom Filt Rate - Afr Amer 90 mL/min (>60); Glucose 148 mg/dL (74-106); Potassium 3.7 mmol/L (3.5-5.1); Protein, Total 7.5 g/dL (6.4-8.2); Sodium Level 140 mmol/L (136-145)
[2021-02-08 20:11] LABS: Red Blood Cell Count Test/G6PD 4.09 x10E6/uL (3.77-5.28)
[2021-02-09 08:24] LABS: G6PD Quant Test 265 (127-427)
== END ==
PROVIDERS: PCP Family Medicine; Referring Provider Internal Medicine Rheumatology; Visit Provider Internal Medicine Rheumatology
DX: M06.4 Inflammatory polyarthropathy (principal); M79.7 Fibromyalgia; M18.12 Unilateral primary osteoarthritis of first carpometacarpal joint, left hand; M19.041 Primary osteoarthritis, right hand; M17.0 Bilateral primary osteoarthritis of knee; M35.00 Sjogren syndrome, unspecified; Q66.71 Congenital pes cavus, right foot; I10 Essential (primary) hypertension; Z79.899 Other long term (current) drug therapy
CPT/HCPCS: 36415; 80053; 82955; 85025

== ENCOUNTER → 2021-05-09 11:07 | Outpatient (CLI) | payer MEDICARE, SELFPAY ==
[2021-05-09 15:04] LABS: Absolute Lymphocyte Count 1.75 X10^3/uL (0.83-4.51); Absolute Neutrophil Count 3.7 X10^3/uL (2.0-7.7); Basophil# 0.03 X10^3/uL; Basophil% 0.5 % (0-1); Eosinophil# 0.13 X10^3/uL; Eosinophils% 2.1 % (0-5); Hematocrit 40.1 % (37-47); Hemoglobin 13.4 g/dL (12.0-15.0); Lymphocyte # 1.75 X10^3/ul (0.83-4.51); Mean Corp Hgb Conc 33.4 g/dL (32-36); Mean Corpuscular Hgb 30.5 pg (27.0-32.0); Mean Corpuscular Volume 91.3 fL (81-99); Mean Platelet Vol. 10.4 fl (6.2-12.0); Monocyte# 0.57 X10^3/uL; Monocyte% 9.1 % (0-10); NRBC Flagged by Analyzer 0 % (0-5); Neutrophil # 3.74 X10^3/uL (2.7-7.7); Platelet Count 279 K/mm3 (150-450); RBC Distribution Width CV 12.3 % (11.6-14.6); RBC Distribution Width SD 41.2 fl (35.1-43.9); Red Blood Count 4.39 M/mm3 (4.2-5.4); White Blood Count 6.2 K/mm3 (4.4-11.0)
[2021-05-09 15:37] LABS: ALB/GLOB Ratio 0.8 RATIO (0.9-2.4); AST(SGOT) 30 U/L (15-37); Alanine Aminotransfer ALT/SGPT 37 U/L (13-56); Albumin, Serum 3.5 g/dL (3.2-5.0); Alkaline Phosphatase 87 U/L (45-117); Anion Gap 8 (5-15); BUN 15 mg/dL (7-18); BUN/Creat Ratio 19.9 RATIO (10-20); Calcium,Total 9.3 mg/dL (8.5-10.1); Chloride 102 mmol/L (98-107); Creatinine, Serum 0.75 mg/dL (0.55-1.02); EST Glomerular Filtration Rate 82 mL/min (>60); Est Glom Filt Rate - Afr Amer 99 mL/min (>60); Globulin 4.6 g/dL (2.2-4.2); Glucose 82 mg/dL (74-106); Protein, Total 8.1 g/dL (6.4-8.2); Sodium Level 140 mmol/L (136-145)
== END ==
PROVIDERS: PCP Family Medicine; Referring Provider Internal Medicine Rheumatology; Visit Provider Internal Medicine Rheumatology
DX: M06.4 Inflammatory polyarthropathy (principal); M79.7 Fibromyalgia; M18.12 Unilateral primary osteoarthritis of first carpometacarpal joint, left hand; M19.041 Primary osteoarthritis, right hand; M17.0 Bilateral primary osteoarthritis of knee; M35.00 Sjogren syndrome, unspecified; Q66.71 Congenital pes cavus, right foot; I10 Essential (primary) hypertension; Z79.899 Other long term (current) drug therapy
CPT/HCPCS: 36415; 80053; 85025

== ENCOUNTER → 2021-06-29 08:12 | Outpatient (CLI) | payer MEDICARE, SELFPAY ==
[2021-06-29 10:10] LABS: Absolute Lymphocyte Count 2.03 X10^3/uL (0.83-4.51); Absolute Neutrophil Count 3.2 X10^3/uL (2.0-7.7); Basophil# 0.03 X10^3/uL; Basophil% 0.5 % (0-1); Eosinophils% 1.7 % (0-5); Hemoglobin 13.3 g/dL (12.0-15.0); Lymphocyte # 2.03 X10^3/ul (0.83-4.51); Lymphocyte % 34.6 % (19-41); Mean Corp Hgb Conc 32.4 g/dL (32-36); Mean Corpuscular Hgb 30.3 pg (27.0-32.0); Mean Corpuscular Volume 93.4 fL (81-99); Mean Platelet Vol. 10.3 fl (6.2-12.0); Monocyte% 8.5 % (0-10); NRBC Flagged by Analyzer 0 % (0-5); Neutrophil # 3.19 X10^3/uL (2.7-7.7); Neutrophil % 54.4 % (47-70); Platelet Count 285 K/mm3 (150-450); RBC Distribution Width CV 12.4 % (11.6-14.6); RBC Distribution Width SD 42.5 fl (35.1-43.9); Red Blood Count 4.39 M/mm3 (4.2-5.4); White Blood Count 5.9 K/mm3 (4.4-11.0)
[2021-06-29 10:46] LABS: ALB/GLOB Ratio 0.8 RATIO (0.9-2.4); AST(SGOT) 35 U/L (15-37); Alanine Aminotransfer ALT/SGPT 40 U/L (13-56); Albumin, Serum 3.7 g/dL (3.2-5.0); Alkaline Phosphatase 91 U/L (45-117); Anion Gap 10 (5-15); BUN 12 mg/dL (7-18); BUN/Creat Ratio 15.4 RATIO (10-20); Chloride 103 mmol/L (98-107); Creatinine, Serum 0.78 mg/dL (0.55-1.02); EST Glomerular Filtration Rate 79 mL/min (>60); Est Glom Filt Rate - Afr Amer 95 mL/min (>60); Globulin 4.5 g/dL (2.2-4.2); Glucose 125 mg/dL (74-106); Potassium 4.1 mmol/L (3.5-5.1); Protein, Total 8.2 g/dL (6.4-8.2); Sodium Level 139 mmol/L (136-145)
== END ==
PROVIDERS: PCP Family Medicine; Referring Provider Internal Medicine Rheumatology; Visit Provider Internal Medicine Rheumatology
DX: M06.4 Inflammatory polyarthropathy (principal); M79.7 Fibromyalgia; M18.12 Unilateral primary osteoarthritis of first carpometacarpal joint, left hand; M19.041 Primary osteoarthritis, right hand; M17.0 Bilateral primary osteoarthritis of knee; M35.00 Sjogren syndrome, unspecified; Q66.70 Congenital pes cavus, unspecified foot; I10 Essential (primary) hypertension; Z79.899 Other long term (current) drug therapy
CPT/HCPCS: 36415; 80053; 85025

== ENCOUNTER → 2021-07-10 13:20 | Outpatient (CLI) | payer MEDICARE, SELFPAY ==
--- NOTE | 2021-07-10 13:26 | CT_ITS ---
STUDY: CT ABDOMEN AND PELVIS WITHOUT CONTRAST REASON FOR EXAM: Female, 65 years old. Right-sided abdominal pain/flank pain. Hematuria. RADIATION DOSAGE (If Supplied By Facility): CTDIvol = ( 22.95 ) mGy, DLP = ( 1255.89 ) mGycm TECHNIQUE: Transaxial images were obtained from the dome of the diaphragm to the symphysis pubis without oral contrast, and without intravenous contrast. Sagittal and coronal images were reconstructed. Individualized dose optimization techniques were used for this CT. COMPARISON: Comparison is made with prior study dated 07/21/2020. FINDINGS: The visualized lung bases are unremarkable. The visualized portions of the heart are within normal limits. There is decreased attenuation of the liver consistent with steatosis. There are surgical clips in the gallbladder fossa consistent with a prior cholecystectomy. Normal spleen. Normal pancreas. Normal bilateral adrenal glands. 3 mm nonobstructive calculus in the midpole calyx of the right kidney. Mild degree of right hydronephrosis and proximal right hydroureter due to a 2.5 mm calculus in the proximal portion of the right ureter. Normal left kidney. Normal visualized stomach. Normal small intestine. There are multiple colonic diverticula consistent with diverticulosis. The appendix is visualized and appears normal. Normal abdominal aorta. Normal inferior vena cava. Normal retroperitoneum. Normal urinary bladder. Normal abdominal wall. There are diffuse degenerative changes of the visualized lumbar spine. CT/Abdomen/Pelvis without Cont IMPRESSION: Mild degree of right hydronephrosis and proximal right hydroureter due to a 2.5 mm calculus in the proximal portion of the right ureter. Fatty infiltration of the liver. Electronically Signed: Tim Jenkins MD at 14:01 EST , Service support ,
== END ==
PROVIDERS: PCP Family Medicine; Referring Provider Family Medicine; Visit Provider Family Medicine
DX: R31.9 Hematuria, unspecified (principal); R10.9 Unspecified abdominal pain
CPT/HCPCS: 74176

== ENCOUNTER 2021-08-06 11:41 | Outpatient (CLI) | payer MEDICARE, SELFPAY ==
--- NOTE | 2021-08-06 11:50 | RAD_ITS ---
STUDY: X-RAY - ABDOMEN/PELVIS REASON FOR EXAM: Female, 65 years old. CALCULUS OF KIDNEY TECHNIQUE: Single AP view of the abdomen / pelvis. COMPARISON: 07/10/2021 CT FINDINGS: Normal visualized lung bases. There is an unremarkable bowel gas pattern. There is no demonstrated free abdominal air. The visualized liver, spleen and kidneys are grossly normal in size and morphology. No definite right ureter calculus. Normal visualized osseous structures. RAD/Abdomen Single View IMPRESSION: Right ureter calculus from 07/10/2021 is not demonstrated on this exam. Electronically Signed: Nathan Flores MD at 2:53 EST Tel , Service support ,
== END 2021-08-06 23:59 | disposition short-term general hospital (02) ==
PROVIDERS: PCP Family Medicine; Referring Provider Urology; Visit Provider Urology
DX: N20.0 Calculus of kidney (principal)
CPT/HCPCS: 74018

== ENCOUNTER 2021-08-29 10:19 | Outpatient (CLI) | payer MEDICARE, SELFPAY ==
[2021-08-29 12:15] LABS: Absolute Lymphocyte Count 1.97 X10^3/uL (0.83-4.51); Absolute Neutrophil Count 3.3 X10^3/uL (2.0-7.7); Basophil# 0.04 X10^3/uL; Basophil% 0.7 % (0-1); Eosinophil# 0.09 X10^3/uL; Eosinophils% 1.5 % (0-5); Hematocrit 40.5 % (37-47); Hemoglobin 13.1 g/dL (12.0-15.0); Lymphocyte # 1.97 X10^3/ul (0.83-4.51); Lymphocyte % 32.9 % (19-41); Mean Corp Hgb Conc 32.3 g/dL (32-36); Mean Corpuscular Hgb 30.7 pg (27.0-32.0); Mean Corpuscular Volume 94.8 fL (81-99); Mean Platelet Vol. 10.2 fl (6.2-12.0); Monocyte# 0.61 X10^3/uL; Monocyte% 10.2 % (0-10); NRBC Flagged by Analyzer 0 % (0-5); Neutrophil # 3.27 X10^3/uL (2.7-7.7); Neutrophil % 54.5 % (47-70); Platelet Count 263 K/mm3 (150-450); RBC Distribution Width CV 12.6 % (11.6-14.6); RBC Distribution Width SD 43.4 fl (35.1-43.9); Red Blood Count 4.27 M/mm3 (4.2-5.4)
[2021-08-29 12:34] LABS: ALB/GLOB Ratio 0.8 RATIO (0.9-2.4); AST(SGOT) 28 U/L (15-37); Alanine Aminotransfer ALT/SGPT 34 U/L (13-56); Albumin, Serum 3.8 g/dL (3.2-5.0); Alkaline Phosphatase 96 U/L (45-117); Anion Gap 6 (5-15); BUN 14 mg/dL (7-18); BUN/Creat Ratio 18.3 RATIO (10-20); Calcium,Total 9.6 mg/dL (8.5-10.1); Chloride 104 mmol/L (98-107); Creatinine, Serum 0.76 mg/dL (0.55-1.02); EST Glomerular Filtration Rate 80 mL/min (>60); Est Glom Filt Rate - Afr Amer 97 mL/min (>60); Globulin 4.5 g/dL (2.2-4.2); Glucose 94 mg/dL (74-106); Potassium 3.7 mmol/L (3.5-5.1); Protein, Total 8.3 g/dL (6.4-8.2); Sodium Level 141 mmol/L (136-145)
== END 2021-08-29 23:59 | disposition short-term general hospital (02) ==
LOC: MTLAB 10:21
PROVIDERS: PCP Family Medicine; Referring Provider Internal Medicine Rheumatology; Visit Provider Internal Medicine Rheumatology
DX: M06.4 Inflammatory polyarthropathy (principal); M35.00 Sjogren syndrome, unspecified; M79.7 Fibromyalgia; M18.12 Unilateral primary osteoarthritis of first carpometacarpal joint, left hand; M19.041 Primary osteoarthritis, right hand; M17.0 Bilateral primary osteoarthritis of knee; Q66.71 Congenital pes cavus, right foot; I10 Essential (primary) hypertension; Z79.899 Other long term (current) drug therapy
CPT/HCPCS: 36415; 80053; 85025

== ENCOUNTER → 2021-12-03 | Outpatient (CLI) | payer MEDICARE, SELFPAY ==
[2021-12-03 10:25] LABS: Absolute Lymphocyte Count 1.79 X10^3/uL (0.83-4.51); Basophil# 0.02 X10^3/uL; Basophil% 0.4 % (0-1); Eosinophils% 1.9 % (0-5); Hematocrit 40.1 % (37-47); Lymphocyte # 1.79 X10^3/ul (0.83-4.51); Lymphocyte % 33.5 % (19-41); Mean Corp Hgb Conc 32.4 g/dL (32-36); Mean Corpuscular Volume 95.5 fL (81-99); Monocyte# 0.45 X10^3/uL; Monocyte% 8.4 % (0-10); NRBC Flagged by Analyzer 0 % (0-5); Neutrophil # 2.98 X10^3/uL (2.7-7.7); Neutrophil % 55.6 % (47-70); Platelet Count 235 K/mm3 (150-450); RBC Distribution Width CV 12.2 % (11.6-14.6); RBC Distribution Width SD 42.8 fl (35.1-43.9); White Blood Count 5.4 K/mm3 (4.4-11.0)
[2021-12-03 10:35] LABS: ALB/GLOB Ratio 0.8 RATIO (0.9-2.4); AST(SGOT) 25 U/L (15-37); Alanine Aminotransfer ALT/SGPT 32 U/L (13-56); Albumin, Serum 3.6 g/dL (3.2-5.0); Alkaline Phosphatase 86 U/L (45-117); Anion Gap 7 (5-15); BUN 15 mg/dL (7-18); BUN/Creat Ratio 19.6 RATIO (10-20); Calcium,Total 9.1 mg/dL (8.5-10.1); Chloride 105 mmol/L (98-107); Creatinine, Serum 0.76 mg/dL (0.55-1.02); EST Glomerular Filtration Rate 80 mL/min (>60); Est Glom Filt Rate - Afr Amer 97 mL/min (>60); Globulin 4.3 g/dL (2.2-4.2); Glucose 148 mg/dL (74-106); Protein, Total 7.9 g/dL (6.4-8.2); Sodium Level 139 mmol/L (136-145)
== END | disposition home or self-care (01) ==
LOC: MTLAB 08:51
PROVIDERS: PCP Family Medicine; Referring Provider Internal Medicine Rheumatology; Visit Provider Internal Medicine Rheumatology
DX: M06.4 Inflammatory polyarthropathy (principal); M35.00 Sjogren syndrome, unspecified; M79.7 Fibromyalgia; M18.12 Unilateral primary osteoarthritis of first carpometacarpal joint, left hand; M19.041 Primary osteoarthritis, right hand; M17.0 Bilateral primary osteoarthritis of knee; Q66.71 Congenital pes cavus, right foot; I10 Essential (primary) hypertension; Z79.899 Other long term (current) drug therapy
CPT/HCPCS: 36415; 80053; 85025

== ENCOUNTER → 2021-12-21 | Outpatient (CLI) | payer MEDICARE, SELFPAY | END | disposition home or self-care (01) | PROVIDERS: PCP Family Medicine; Referring Provider Orthopaedic Surgery; Visit Provider Orthopaedic Surgery | DX: M51.36 Other intervertebral disc degeneration, lumbar region (principal) ==

== ENCOUNTER → 2022-02-22 | Outpatient (CLI) | payer MEDICARE, SELFPAY ==
--- NOTE | 2022-02-22 10:39 | BI_ITS ---
MAMMOGRAPHY - BILATERAL SCREENING REASON FOR EXAM: Female, 66 years old. Routine annual screening examination. PERTINENT HISTORY: Non-contributory. TECHNIQUE: Digital bilateral breast hellen (3D mammographic acquisition) in the CC and MLO projections. 2-D mediolateral oblique (MLO) and craniocaudad (CC) views of both breasts were obtained. CAD: Full Field Digital Mammography with Computer Added Detection was performed. COMPARISON: Comparison is made with prior study dated 12/22/2019 and 10/15/2018. FINDINGS: Breast Composition: There are scattered areas of fibroglandular density. There are no dominant masses or suspicious calcifications. Stable small benign-appearing bilateral axillary lymph nodes. No other significant abnormalities are identified. There has been no significant change since the prior study. BI/SCRN MAMM (CAD)W/HELLEN BILAT IMPRESSION: Stable bilateral screening mammogram. Yearly follow-up mammogram recommended. (A) ASSESSMENT CATEGORY: BIRADS Category 2: Benign. A letter regarding these results will be sent to the patient by the facility within 30 days. Approximately 10% of breast cancers are not detected by mammography. A normal mammogram should not delay biopsy of a clinically suspicious abnormality. [id number] Electronically Signed: Tim Jenkins MD at 12:41 EDT ,
== END | disposition home or self-care (01) ==
LOC: OPBI 10:38
PROVIDERS: PCP Family Medicine; Visit Provider Family Medicine
DX: Z12.31 Encounter for screening mammogram for malignant neoplasm of breast (principal)
CPT/HCPCS: 77063; 77067

== ENCOUNTER → 2022-03-06 | Outpatient (CLI) | payer MEDICARE, SELFPAY ==
[2022-03-06 12:13] LABS: Absolute Lymphocyte Count 1.43 X10^3/uL (0.83-4.51); Absolute Neutrophil Count 2.5 X10^3/uL (2.0-7.7); Basophil# 0.02 X10^3/uL; Basophil% 0.5 % (0-1); Eosinophil# 0.09 X10^3/uL; Eosinophils% 2.1 % (0-5); Hematocrit 40.8 % (37-47); Hemoglobin 13.3 g/dL (12.0-15.0); Lymphocyte # 1.43 X10^3/ul (0.83-4.51); Lymphocyte % 32.8 % (19-41); Mean Corp Hgb Conc 32.6 g/dL (32-36); Mean Corpuscular Hgb 30.8 pg (27.0-32.0); Mean Corpuscular Volume 94.4 fL (81-99); Mean Platelet Vol. 10.8 fl (6.2-12.0); Monocyte# 0.36 X10^3/uL; Monocyte% 8.3 % (0-10); NRBC Flagged by Analyzer 0 % (0-5); Neutrophil # 2.45 X10^3/uL (2.7-7.7); Neutrophil % 56.1 % (47-70); Platelet Count 241 K/mm3 (150-450); RBC Distribution Width CV 11.9 % (11.6-14.6); RBC Distribution Width SD 41.4 fl (35.1-43.9); Red Blood Count 4.32 M/mm3 (4.2-5.4); White Blood Count 4.4 K/mm3 (4.4-11.0)
[2022-03-06 12:34] LABS: ALB/GLOB Ratio 0.9 RATIO (0.9-2.4); AST(SGOT) 25 U/L (15-37); Alanine Aminotransfer ALT/SGPT 33 U/L (13-56); Albumin, Serum 3.7 g/dL (3.2-5.0); Alkaline Phosphatase 74 U/L (45-117); Anion Gap 5 (5-15); BUN 16 mg/dL (7-18); BUN/Creat Ratio 20.6 RATIO (10-20); Calcium,Total 8.8 mg/dL (8.5-10.1); Chloride 104 mmol/L (98-107); Creatinine, Serum 0.78 mg/dL (0.55-1.02); EST Glomerular Filtration Rate 78 mL/min (>60); Est Glom Filt Rate - Afr Amer 95 mL/min (>60); Globulin 4.2 g/dL (2.2-4.2); Glucose 132 mg/dL (74-106); Potassium 3.9 mmol/L (3.5-5.1); Protein, Total 7.9 g/dL (6.4-8.2); Sodium Level 137 mmol/L (136-145)
== END | disposition home or self-care (01) ==
LOC: MTLAB 09:41
PROVIDERS: PCP Family Medicine; Referring Provider Internal Medicine Rheumatology; Visit Provider Internal Medicine Rheumatology
DX: M06.4 Inflammatory polyarthropathy (principal); M35.00 Sjogren syndrome, unspecified; M79.7 Fibromyalgia; M18.12 Unilateral primary osteoarthritis of first carpometacarpal joint, left hand; M19.041 Primary osteoarthritis, right hand; M17.0 Bilateral primary osteoarthritis of knee; Q66.71 Congenital pes cavus, right foot; I10 Essential (primary) hypertension; Z79.899 Other long term (current) drug therapy
CPT/HCPCS: 36415; 80053; 85025

== ENCOUNTER → 2022-03-28 | Outpatient (CLI) | payer MEDICARE, SELFPAY | END | disposition home or self-care (01) | PROVIDERS: PCP Family Medicine; Visit Provider Family Medicine | DX: U07.1 COVID-19 (principal) | CPT/HCPCS: 87635; U0003; U0005 ==

== ENCOUNTER → 2022-05-29 | Outpatient (CLI) | payer MEDICARE, SELFPAY ==
[2022-05-29 10:37] LABS: Absolute Lymphocyte Count 1.47 X10^3/uL (0.83-4.51); Absolute Neutrophil Count 2.9 X10^3/uL (2.0-7.7); Basophil# 0.03 X10^3/uL; Basophil% 0.6 % (0-1); Eosinophil# 0.34 X10^3/uL; Eosinophils% 6.5 % (0-5); Hematocrit 38.6 % (37-47); Hemoglobin 13.2 g/dL (12.0-15.0); Lymphocyte # 1.47 X10^3/ul (0.83-4.51); Lymphocyte % 28.3 % (19-41); Mean Corp Hgb Conc 34.2 g/dL (32-36); Mean Corpuscular Hgb 31.8 pg (27.0-32.0); Mean Platelet Vol. 10.3 fl (6.2-12.0); Monocyte# 0.48 X10^3/uL; Monocyte% 9.2 % (0-10); NRBC Flagged by Analyzer 0 % (0-5); Neutrophil # 2.86 X10^3/uL (2.7-7.7); Platelet Count 272 K/mm3 (150-450); RBC Distribution Width CV 12.7 % (11.6-14.6); RBC Distribution Width SD 43.7 fl (35.1-43.9); Red Blood Count 4.15 M/mm3 (4.2-5.4); White Blood Count 5.2 K/mm3 (4.4-11.0)
[2022-05-29 10:58] LABS: AST(SGOT) 18 U/L (15-37); Alanine Aminotransfer ALT/SGPT 24 U/L (13-56); Albumin, Serum 3.8 g/dL (3.2-5.0); Alkaline Phosphatase 78 U/L (45-117); Anion Gap 6 (5-15); BUN 18 mg/dL (7-18); BUN/Creat Ratio 23.2 RATIO (10-20); Calcium,Total 9.5 mg/dL (8.5-10.1); Chloride 103 mmol/L (98-107); Creatinine, Serum 0.78 mg/dL (0.55-1.02); EST Glomerular Filtration Rate 79 mL/min (>60); Est Glom Filt Rate - Afr Amer 95 mL/min (>60); Glucose 93 mg/dL (74-106); Potassium 3.9 mmol/L (3.5-5.1); Protein, Total 7.8 g/dL (6.4-8.2); Sodium Level 138 mmol/L (136-145)
== END | disposition home or self-care (01) ==
PROVIDERS: PCP Family Medicine; Referring Provider Internal Medicine Rheumatology; Visit Provider Internal Medicine Rheumatology
DX: M06.4 Inflammatory polyarthropathy (principal); M35.00 Sjogren syndrome, unspecified; M79.7 Fibromyalgia; M18.12 Unilateral primary osteoarthritis of first carpometacarpal joint, left hand; M19.041 Primary osteoarthritis, right hand; M17.0 Bilateral primary osteoarthritis of knee; Q66.71 Congenital pes cavus, right foot; I10 Essential (primary) hypertension
CPT/HCPCS: 36415; 80053; 85025

== ENCOUNTER → 2022-08-16 | Outpatient (CLI) | payer MEDICARE, SELFPAY ==
[2022-08-16 12:03] LABS: Absolute Lymphocyte Count 1.36 X10^3/uL (0.83-4.51); Absolute Neutrophil Count 2.7 X10^3/uL (2.0-7.7); Basophil# 0.02 X10^3/uL; Basophil% 0.4 % (0-1); Eosinophil# 0.11 X10^3/uL; Eosinophils% 2.4 % (0-5); Hematocrit 38.3 % (37-47); Hemoglobin 12.4 g/dL (12.0-15.0); Lymphocyte # 1.36 X10^3/ul (0.83-4.51); Lymphocyte % 29.8 % (19-41); Mean Corp Hgb Conc 32.4 g/dL (32-36); Mean Corpuscular Hgb 31.4 pg (27.0-32.0); Mean Platelet Vol. 10.4 fl (6.2-12.0); Monocyte# 0.38 X10^3/uL; Monocyte% 8.3 % (0-10); NRBC Flagged by Analyzer 0 % (0-5); Neutrophil # 2.68 X10^3/uL (2.7-7.7); Neutrophil % 58.9 % (47-70); Platelet Count 255 K/mm3 (150-450); RBC Distribution Width CV 12.4 % (11.6-14.6); RBC Distribution Width SD 44.5 fl (35.1-43.9); Red Blood Count 3.95 M/mm3 (4.2-5.4); White Blood Count 4.6 K/mm3 (4.4-11.0)
[2022-08-16 12:50] LABS: ALB/GLOB Ratio 1.1 RATIO (0.9-2.4); AST(SGOT) 18 U/L (15-37); Alanine Aminotransfer ALT/SGPT 19 U/L (13-56); Alkaline Phosphatase 80 U/L (45-117); Anion Gap 7 (5-15); BUN 17 mg/dL (7-18); BUN/Creat Ratio 25.2 RATIO (10-20); Calcium,Total 9.5 mg/dL (8.5-10.1); Chloride 105 mmol/L (98-107); Creatinine, Serum 0.67 mg/dL (0.55-1.02); EST Glomerular Filtration Rate 92 mL/min (>60); Est Glom Filt Rate - Afr Amer 112 mL/min (>60); Globulin 3.7 g/dL (2.2-4.2); Glucose 92 mg/dL (74-106); Potassium 4.2 mmol/L (3.5-5.1); Protein, Total 7.7 g/dL (6.4-8.2); Sodium Level 142 mmol/L (136-145)
== END | disposition home or self-care (01) ==
LOC: MFPLAB 10:55
PROVIDERS: PCP Family Medicine; Referring Provider Family Medicine; Visit Provider Family Medicine
DX: Z01.818 Encounter for other preprocedural examination (principal)
CPT/HCPCS: 36415; 80053; 85025

== ENCOUNTER → 2022-08-28 | Outpatient (CLI) | payer MEDICARE, SELFPAY ==
[2022-08-28 12:32] LABS: Absolute Lymphocyte Count 1.37 X10^3/uL (0.83-4.51); Absolute Neutrophil Count 5.2 X10^3/uL (2.0-7.7); Basophil# 0.03 X10^3/uL; Basophil% 0.4 % (0-1); Eosinophil# 0.09 X10^3/uL; Eosinophils% 1.2 % (0-5); Hematocrit 40.7 % (37-47); Lymphocyte # 1.37 X10^3/ul (0.83-4.51); Lymphocyte % 18.7 % (19-41); Mean Corp Hgb Conc 31.9 g/dL (32-36); Mean Corpuscular Hgb 31.1 pg (27.0-32.0); Mean Corpuscular Volume 97.4 fL (81-99); Mean Platelet Vol. 10.5 fl (6.2-12.0); Monocyte# 0.61 X10^3/uL; Monocyte% 8.3 % (0-10); NRBC Flagged by Analyzer 0 % (0-5); Neutrophil % 71.3 % (47-70); Platelet Count 317 K/mm3 (150-450); RBC Distribution Width CV 12.4 % (11.6-14.6); RBC Distribution Width SD 44.6 fl (35.1-43.9); Red Blood Count 4.18 M/mm3 (4.2-5.4); White Blood Count 7.3 K/mm3 (4.4-11.0)
[2022-08-28 12:53] LABS: ALB/GLOB Ratio 0.9 RATIO (0.9-2.4); AST(SGOT) 20 U/L (15-37); Alanine Aminotransfer ALT/SGPT 22 U/L (13-56); Albumin, Serum 3.9 g/dL (3.2-5.0); Alkaline Phosphatase 88 U/L (45-117); Anion Gap 7 (5-15); BUN 18 mg/dL (7-18); BUN/Creat Ratio 19.4 RATIO (10-20); Calcium,Total 9.7 mg/dL (8.5-10.1); Chloride 101 mmol/L (98-107); Creatinine, Serum 0.93 mg/dL (0.55-1.02); EST Glomerular Filtration Rate 64 mL/min (>60); Est Glom Filt Rate - Afr Amer 77 mL/min (>60); Globulin 4.3 g/dL (2.2-4.2); Glucose 91 mg/dL (74-106); Protein, Total 8.2 g/dL (6.4-8.2); Sodium Level 139 mmol/L (136-145)
== END | disposition home or self-care (01) ==
LOC: MTLAB 09:53
PROVIDERS: PCP Family Medicine; Referring Provider Internal Medicine Rheumatology; Visit Provider Internal Medicine Rheumatology
DX: M06.4 Inflammatory polyarthropathy (principal); M35.00 Sjogren syndrome, unspecified; M79.7 Fibromyalgia; M18.12 Unilateral primary osteoarthritis of first carpometacarpal joint, left hand; M19.041 Primary osteoarthritis, right hand; M19.042 Primary osteoarthritis, left hand; M17.0 Bilateral primary osteoarthritis of knee; Q66.71 Congenital pes cavus, right foot; I10 Essential (primary) hypertension; Z96.652 Presence of left artificial knee joint; Z79.899 Other long term (current) drug therapy
CPT/HCPCS: 36415; 80053; 85025

== ENCOUNTER 2022-09-19 08:22 | Emergency (ER) | payer MEDICARE, SELFPAY ==
[2022-09-19 08:24] VITALS: BP 143/75; PULSE 69; RESP 18; TEMP 36.3; O2SAT 99
--- NOTE | 2022-09-19 08:55 | CT_ITS ---
STUDY: CT ABDOMEN AND PELVIS WITH CONTRAST REASON FOR EXAM: Female, 66 years old. Abdominal pain. Lower back pain. Nausea. RADIATION DOSAGE (If Supplied By Facility): CTDIvol = ( 11.6 ) mGy, DLP = ( 752.57 ) mGycm TECHNIQUE: Transaxial images were obtained from the dome of the diaphragm to the symphysis pubis with oral contrast. Oral and amp;amp; IV Gastrografin and amp;amp; 100mL Isovue-300 was administered. Sagittal and coronal images were reconstructed. Individualized dose optimization techniques were used for this CT. COMPARISON: Comparison is made with prior study dated 07/10/2021. FINDINGS: The visualized lung bases are unremarkable. The visualized portions of the heart are within normal limits. There is decreased attenuation of the liver consistent with steatosis. There are surgical clips in the gallbladder fossa consistent with a prior cholecystectomy. Normal spleen. Normal pancreas. Normal bilateral adrenal glands. There is engorgement of the right kidney with evidence of right perinephric and periureteric stranding. Moderate degree of right hydronephrosis and right hydroureter due to a 6.1 mm calculus in the midportion of the right ureter. Nonobstructive right intrarenal calculus. Normal left kidney. Normal visualized stomach. Normal small intestine. There are multiple colonic diverticula consistent with diverticulosis. There is a calcified appendicolith. Normal abdominal aorta. Normal inferior vena cava. Normal retroperitoneum. Normal urinary bladder. Normal abdominal wall. There are mild degenerative changes of the visualized lumbar spine. CT/Abdomen/Pelvis WITH Contrast IMPRESSION: Fatty infiltration of the liver. Status post cholecystectomy. Moderate degree of right hydronephrosis and hydroureter due to a 6.1 mm calculus in the midportion of the right ureter. Electronically Signed: Tim Jenkins MD at 11:27 [facility] ,
[2022-09-19 09:21] VITALS: BMI 29.7
[2022-09-19] MEDS: Morphine 4 MG/ML Syringe IV (09:24)
[2022-09-19] MEDS: 0.9% Normal Saline 1,000 ML 1000 ML IV (09:24)
[2022-09-19] MEDS: Ondansetron 4 MG/2 ML Vial IV (09:24)
[2022-09-19 09:26] LABS: Absolute Lymphocyte Count 1.23 X10^3/uL (0.83-4.51); Absolute Neutrophil Count 5.4 X10^3/uL (2.0-7.7); Basophil# 0.03 X10^3/uL; Basophil% 0.4 % (0-1); Eosinophil# 0.03 X10^3/uL; Eosinophils% 0.4 % (0-5); Hematocrit 37.3 % (37-47); Hemoglobin 12.4 g/dL (12.0-15.0); Lymphocyte # 1.23 X10^3/ul (0.83-4.51); Mean Corp Hgb Conc 33.2 g/dL (32-36); Mean Corpuscular Hgb 31.8 pg (27.0-32.0); Mean Corpuscular Volume 95.6 fL (81-99); Mean Platelet Vol. 9.7 fl (6.2-12.0); Monocyte# 0.57 X10^3/uL; Monocyte% 7.9 % (0-10); NRBC Flagged by Analyzer 0 % (0-5); Neutrophil # 5.38 X10^3/uL (2.7-7.7); Neutrophil % 74.2 % (47-70); Platelet Count 244 K/mm3 (150-450); RBC Distribution Width CV 11.9 % (11.6-14.6); RBC Distribution Width SD 41.3 fl (35.1-43.9); White Blood Count 7.3 K/mm3 (4.4-11.0)
[2022-09-19 09:43] LABS: ALB/GLOB Ratio 0.9 RATIO (0.9-2.4); AST(SGOT) 17 U/L (15-37); Alanine Aminotransfer ALT/SGPT 18 U/L (13-56); Albumin, Serum 3.7 g/dL (3.2-5.0); Alkaline Phosphatase 83 U/L (45-117); Anion Gap 4 (5-15); BUN 20 mg/dL (7-18); BUN/Creat Ratio 21.3 RATIO (10-20); Calcium,Total 9.6 mg/dL (8.5-10.1); Chloride 103 mmol/L (98-107); Creatinine, Serum 0.94 mg/dL (0.55-1.02); EST Glomerular Filtration Rate 63 mL/min (>60); Est Glom Filt Rate - Afr Amer 76 mL/min (>60); Estimated Creatinine Clearance 54.37 ml/min; Globulin 3.9 g/dL (2.2-4.2); Glucose 125 mg/dL (74-106); Lipase 174 U/L (73-393); Protein, Total 7.6 g/dL (6.4-8.2); Sodium Level 139 mmol/L (136-145)
[2022-09-19 09:53] LABS: Lactic Acid 0.4 mmol/L (0.4-1.9)
[2022-09-19 10:11] LABS: Mucous, Urine 0 SEEN /hpf (<or=2+)
[2022-09-19 10:27] LABS: Color, Urine Yellow (Yellow); Glucose, Dipstick Normal (Normal); Ketone-Dipstick Negative (Negative); Leukocyte Esterase-Dipstick 25 /ul (Negative); Nitrite-Dipstick Negative (Negative); Occult Blood-Urine 250 /ul (Negative); Protein-Dipstick 30 mg/dl (Negative); Urine Bilirubin Dipstick Negative (Negative); Urine Clarity Cloudy (Clear); Urine Urobilinogen Normal (Normal)
[2022-09-19 10:42] LABS: Bacteria RARE /hpf (None Seen); Red Blood Cells-Urine 50-100 SEEN /hpf (0-5); Squamous Epithelial Cells - UA 0-5 SEEN /hpf (5-10); White Blood Cells 0-5 SEEN /hpf (0-5)
--- NOTE | 2022-09-19 10:53 | EDS_ITS ---
HPI HPI - GI History of Present Illness Chief Complaint: Abd Pain Informant: patient Abdominal Pain/Flank Pain Onset: Yesterday Context: Gradual Onset Timing: Continuous Quality: Cramping Location: RLQ and LLQ Worsened by: Nothing Relieved by: Nothing Nausea/Vomiting/Emesis GI Symptom: Positive for Nausea; Negative for Vomiting Diarrhea/Melena/Hematochezia GI Symptom: Negative for Diarrhea, Melena or Hematochezia Associated Symptoms Associated Symptoms: Negative for Dysuria, Frequency or Hematuria PFSH PFSH Medical History (Updated 09/19/22 @ 12:[address] Speedy Bean, DO) FH: total knee replacement HTN (hypertension) Home Medications amitriptyline 75 mg tablet 75 mg PO QHS MIGRAINES 05/16/17 [History Last Taken 12/03/18] doxepin 75 mg capsule 75 mg PO QHS FIBROMYALGIA 05/16/17 [History Last Taken 12/03/18] propranolol 80 mg capsule,24 hr,extended release 80 mg PO QHS BP 05/16/17 [History Last Taken 12/03/18] metronidazole 1 % topical gel (Metrogel) 1 applic topical DAILY ROSCEA 06/29/18 [History Last Taken 12/03/18] folic acid 1 mg tablet 2 mg PO DAILY 07/21/20 [History Last Taken Unknown] leucovorin calcium 25 mg tablet 1 tab PO WE 07/21/20 [History Last Taken Unknown] methotrexate sodium 2.5 mg tablet 15 mg PO TU 07/21/20 [History Last Taken Unknown] hydrocodone-acetaminophen 5-325mg 5mg-325mg 1 tab PO Q6H PRN PRN Pain 3 days #10 TABLETS 09/19/22 [Rx Last Taken Unknown] ondansetron 4 mg disintegrating tablet 4 mg PO Q8H PRN PRN Nausea #10 tabs 09/19/22 [Rx Last Taken Unknown] Allergy/AdvReac Type Severity Reaction Status Date / Time benzocaine AdvReac CONTACT Verified 09/19/22 08:23 DERMATITIS codeine AdvReac Nausea/Vom/ Verified 09/19/22 08:23 Diarrhea prednisone AdvReac inside of Verified 09/19/22 08:23 mouth raw procaine AdvReac CONTACT Verified 09/19/22 08:23 DERMATITIS tetracaine AdvReac CONTACT Verified 09/19/22 08:23 DERMATITIS Family History Father Cancer Hypertension Surgical History (Updated 09/19/22 @ 10:[address] Speedy Bean, DO) H/O tubal ligation History of cholecystectomy History of total left knee replacement Hx of appendectomy Social History Smoking Status: Never smoker ROS ROS ED Constitutional Constitutional ED: Denies chills or fever(s) Eyes Eyes: Denies blurry vision or change in vision ENT ENT ED: Denies rhinorrhea or sore throat Cardiovascular Cardiovascular: Denies chest pain or palpitations Respiratory/Chest Respiratory/Chest: Denies cough or dyspnea Gastrointestinal Gastrointestinal: Reports nausea; Denies vomiting Genitourinary Genitourinary ED: Denies dysuria or hematuria Musculoskeletal Musculoskeletal: Reports back pain; Denies neck pain Integumentary Reports rash; Denies abscess Neurologic Neurologic: Denies headache(s) or weakness Allergic/Immunologic Allergic/Immunologic ED: Denies mouth swelling or urticaria EXAM Physical Exam Const Vital Signs: 09/19/22 08:24 09/19/22 11:32 Temperature 97.3 F L Temperature Source Temporal Pulse Rate 69 66 Respiratory Rate 18 18 Blood Pressure 143/75 H 146/76 H Blood Pressure Mean 97 99 Pulse Ox 99 95 Oxygen Delivery Method Room Air Room Air Positive well nourished and well developed General Appearance ED: well developed HEENT Reports moist mucous membranes Neck supple and no JVD Resp normal respiratory effort and clear to auscultation bilaterally Cardio regular rate, regular rhythm and no murmurs GI normal to inspection, nondistended, normoactive bowel sounds Palpation: soft and tender LLQ, RLQ and suprapubic; Negative for guarding or rebound tenderness present Extremity normal to inspection General Extremety ED: Negative for edema or tenderness General Extremity: Negative for edema Neuro oriented x3, CN's II-XII intact bilaterally and no sensory deficits noted Sensorium / Orientation: alert Motor Exam: strength 5/5 throughout Psych mental status grossly normal Skin no rashes or lesions noted MDM MDM MDM Narrative Medical decision making narrative: Differential diagnosis includes bowel obstruction, perforation, gastroenteritis, pancreatitis, urinary tract infection, pyelonephritis, and ureteral calculus. CBC will be obtained to assess for leukocytosis and anemia. Comprehensive metabolic profile will be obtained to assess for hepatic function, renal function, and electrolyte abnormality. Lipase will be obtained to assess for pancreatitis. Lactate will be obtained to assess for sepsis and infection. Urinalysis will be obtained to assess for urinary tract infection and hematuria. CT scan of the abdomen pelvis will be obtained to assess for ureteral calculus, pyelonephritis, bowel obstruction, and perforation. Lab Data Attestation: I reviewed the patient's lab results. Lab results narrative: CBC was reviewed and was within normal limits. Comprehensive metabolic profile was reviewed and was within normal limits. Lactate was reviewed and was normal. Lipase was reviewed and was normal. Urinalysis was reviewed. Leukocyte esterase was 25. There is 0-5 white blood cells. Occult blood was 250 with 50- 100 red blood cells. Labs: Laboratory Results - last 24 hr 09/19/22 09/19/22 09/19/22 09:15 09:15 09:15 WBC 7.3 RBC 3.90 L Hgb 12.4 Hct 37.3 MCV 95.6 MCH 31.8 MCHC 33.2 RDW Std Deviation 41.3 RDW Coeff of Aide 11.9 Plt Count 244 MPV 9.7 Immature Gran % (Auto) 0.100 Neut % (Auto) 74.2 H Lymph % (Auto) 17.0 L [place] % (Auto) 7.9 Eos % (Auto) 0.4 Baso % (Auto) 0.4 Absolute Neuts (auto) 5.4 Absolute Lymphs (auto) 1.23 Nucleated RBC % 0 Sodium 139 Potassium 4.0 Chloride 103 Carbon Dioxide 32.0 Anion Gap 4 L BUN 20 H Creatinine 0.94 Estim Creat Clear Calc 54.37 Est GFR (MDRD) Af Amer 76 Est GFR (MDRD) Non-Af 63 BUN/Creatinine Ratio 21.3 H Glucose 125 H Lactic Acid 0.4 Calcium 9.6 Total Bilirubin 0.30 AST 17 ALT 18 Alkaline Phosphatase 83 Total Protein 7.6 Albumin 3.7 Globulin 3.9 Albumin/Globulin Ratio 0.9 Lipase 174 Urine Color Urine Clarity Urine pH Ur Specific [place] Urine Protein Urine Glucose (UA) Urine Ketones Urine Occult Blood Urine Nitrite Urine Bilirubin Urine Urobilinogen Ur Leukocyte Esterase Urine RBC Urine WBC Ur Squamous Epith Cells Urine Bacteria Urine Mucus 09/19/22 10:05 WBC RBC Hgb Hct MCV MCH MCHC RDW Std Deviation RDW Coeff of Aide Plt Count MPV Immature Gran % (Auto) Neut % (Auto) Lymph % (Auto) [place] % (Auto) Eos % (Auto) Baso % (Auto) Absolute Neuts (auto) Absolute Lymphs (auto) Nucleated RBC % Sodium Potassium Chloride Carbon Dioxide Anion Gap BUN Creatinine Estim Creat Clear Calc Est GFR (MDRD) Af Amer Est GFR (MDRD) Non-Af BUN/Creatinine Ratio Glucose Lactic Acid Calcium Total Bilirubin AST ALT Alkaline Phosphatase Total Protein Albumin Globulin Albumin/Globulin Ratio Lipase Urine Color Yellow Urine Clarity Cloudy Urine pH 7.0 Ur Specific [place] 1.010 Urine Protein 30 H Urine Glucose (UA) Normal Urine Ketones Negative Urine Occult Blood 250 H Urine Nitrite Negative Urine Bilirubin Negative Urine Urobilinogen Normal Ur Leukocyte Esterase 25 H Urine RBC 50-100 SEEN Urine WBC 0-5 SEEN Ur Squamous Epith Cells 0-5 SEEN Urine Bacteria RARE Urine Mucus 0 SEEN Radiography Diagnostic Testing: Clinical Impression(s) from Imaging Studies Abdomen/Pelvis CT 09/19/22 08:55 IMPRESSION: Fatty infiltration of the liver. Status post cholecystectomy. Moderate degree of right hydronephrosis and hydroureter due to a 6.1 mm calculus in the midportion of the right ureter. Electronically Signed: Tim Jenkins MD at 11:27 EST , CT scan of the abdomen pelvis was obtained. There is a moderate degree of right hydronephrosis and hydroureter due to a 6.1 mm calculus in the midportion of the right ureter. There is fatty infiltration of the liver. There are no other acute abnormalities noted. This was interpreted by the radiologist and was also independently reviewed by myself. Treatment and Re-Evaluation Narrative: Patient was given IV fluids, morphine, and Zofran. Patient is feeling better on reevaluation. Patient was advised of her findings. Case was discussed with Dr. Charissa Olivas from urology. She will have the patient follow-up with her in the office next week. Patient was given a prescription for Zofran and [place]. Patient was instructed to follow-up in 3 to 5 days. Patient understood and was agreeable with the plan. All questions were answered. Discharge Plan Triage Chief Complaint: Abd Pain ED Provider: Speedy Bean Dx/Rx/DC Orders Clinical Impression: Calculus of right ureter, Hydronephrosis of right kidney Instructions: ED Kidney Stone w/ Colic Prescriptions: New hydrocodone-acetaminophen [hydrocodone-acetaminophen] 5-325 mg tablet 1 tab PO Q6H PRN PRN (Reason: Pain) 3 Days Qty: 10 0RF ondansetron [ondansetron] 4 mg tablet,disintegrating 4 mg PO Q8H PRN PRN (Reason: Nausea) Qty: 10 0RF No Action amitriptyline 75 MG tablet 75 mg PO QHS Label Comments: doxepin 75 MG capsule 75 mg PO QHS propranolol 80 MG capsule 80 mg PO QHS Label Comments: metronidazole [Metrogel] 60 GM gel 1 applic topical DAILY leucovorin calcium 25 MG tablet 1 tab PO WE methotrexate sodium 2.5 MG tablet 15 mg PO TU folic acid 1 MG tablet 2 mg PO DAILY Primary Care Provider: Kateryna Medina Referrals: Kateryna Medina MD [Primary Care Provider] - 5-7 Days Charissa Olivas MD [Med Staff - Active Staff] - 3-5 Days Disposition Disposition: Home, Self Care
[2022-09-19 11:32] VITALS: BP 146/76; PULSE 66; RESP 18; O2SAT 95
[2022-09-19 13:10] VITALS: BP 141/89; PULSE 68; RESP 16; O2SAT 98
== END 2022-09-19 13:11 | disposition home or self-care (01) ==
PROVIDERS: Emergency Provider Emergency Medicine; PCP Family Medicine; Visit Provider Emergency Medicine
DX: N13.2 Hydronephrosis with renal and ureteral calculous obstruction (principal)
CPT/HCPCS: 74177; 80053; 81001; 83605; 83690; 85025; 96361; 96374; 96375; 99283; J7030; Q9967; A4216; J2405

== ENCOUNTER 2022-09-24 09:57 | Day surgery (SDC) | payer MEDICARE, SELFPAY ==
[2022-09-24] VITALS (9 sets, daily range): BP systolic 111–127; BP diastolic 52–68; PULSE 61–67; RESP 16–18; TEMP 36.2–36.6; O2SAT 93–100; BMI 28.8
[2022-09-24] MEDS: Lactated Ringers 1,000 ML 15 ML IV (10:10)
[2022-09-24] MEDS: Cefazolin 2 GM in 0.9% Normal Saline 100 ML IV (11:40)
--- NOTE | 2022-09-24 11:59 | HP.PCM_ITS ---
HPI - General General Date of Service: 09/24/22 Chief Complaint: Obstructing right ureteral calculus HPI Narrative MARNI PETERSON, is a 66 F who presents for a stent plain for obstructing stone in the distal right ureter she has been having severe pain and working to place a stent to unblock her kidney. [facility] Medical History (Updated 09/24/22 @ 10:54 by Montez Valenzuela) Arthritis FH: total knee replacement Fibromyalgia Gastric reflux History of IBS HTN (hypertension) Kidney stone on right side Migraine headache Post-menopausal Rectal fistula Sjogren syndrome with dental involvement Sjogren syndrome with inflammatory arthritis Wears contact lenses Wears dentures Wears glasses Home Medications amitriptyline 75 mg tablet 75 mg PO QHS MIGRAINES 05/16/17 [History Last Taken 09/23/22] doxepin 75 mg capsule 75 mg PO QHS FIBROMYALGIA 05/16/17 [History Last Taken 09/23/22] propranolol 80 mg capsule,24 hr,extended release 80 mg PO QHS BP 05/16/17 [History Last Taken 09/23/22] hydrocodone-acetaminophen 5-325mg 5mg-325mg 1 tab PO Q6H PRN PRN Pain 3 days #10 TABLETS 09/19/22 [Rx Last Taken 09/23/22] acetaminophen 500 mg tablet 1,000 mg PO DAILY 09/24/22 [History Last Taken 09/23/22] cephalexin 500 mg capsule 500 mg PO BID 3 days #6 caps 09/24/22 [Rx Last Taken Unknown] loratadine 10 mg tablet 10 mg PO DAILY 09/24/22 [History Last Taken 09/23/22] sulfasalazine 500 mg tablet,delayed release 500 mg PO BID 09/24/22 [History Last Taken 09/23/22] triamcinolone acetonide 0.1 % topical cream 1 applic topical DAILY 09/24/22 [History Last Taken 09/23/22] Allergy/AdvReac Type Severity Reaction Status Date / Time latex Allergy Rash Verified 09/24/22 10:33 lavender (Lavandula Allergy Other Verified 09/24/22 10:33 angustifolia) benzocaine AdvReac CONTACT Verified 09/24/22 10:18 DERMATITIS codeine AdvReac Nausea/Vom/ Verified 09/24/22 10:18 Diarrhea prednisone AdvReac inside of Verified 09/24/22 10:18 mouth raw procaine AdvReac CONTACT Verified 09/24/22 10:18 DERMATITIS tetracaine AdvReac CONTACT Verified 09/24/22 10:18 DERMATITIS Family History (Updated 09/24/22 @ 10:30 by Montez Valenzuela) Father Cancer Hypertension Mother GBS (Guillain [place] syndrome) Surgical History (Updated 09/24/22 @ 10:29 by Montez Valenzuela) H/O hemorrhoidectomy H/O tubal ligation History of cholecystectomy History of total left knee replacement Hx of appendectomy Social History Smoking Status: Never smoker Vital Signs Vital Signs Vital Signs: 09/24/22 10:38 09/24/22 10:41 Temperature 97.3 F L Temperature Source Temporal Pulse Rate 65 Respiratory Rate 18 Respiratory Pattern Normal Blood Pressure 127/52 H Blood Pressure Mean 77 Blood Pressure Source Monitor Blood Pressure Position Semi-Fowlers Blood Pressure Location Right Arm Pulse Ox 95 Oxygen Delivery Method Room Air Weight Weight: 81 kg Body Mass Index (BMI) 28.8
--- NOTE | 2022-09-24 12:00 | DCINST_ITS ---
Discharge Instructions Diet Discharge Diet: No restrictions Activity Discharge Activity: Return to Normal Activity Follow Up Care Please Follow Up With: Tye Navarro MD When: Call my office for instructions Test Results: Test results from this visit will be discussed in further detail at your follow- up appointment, if applicable. Discharge Plan Admission Primary Reason for Your Visit: kidney stone Attending Provider: Tye Navarro Primary Care Provider: Kateryna Medina Discharge Orders/Prescriptions Prescriptions: New cephalexin 500 mg capsule 500 mg PO BID 3 Days Qty: 6 0RF Continued amitriptyline 75 MG tablet 75 mg PO QHS Label Comments: doxepin 75 MG capsule 75 mg PO QHS propranolol 80 MG capsule 80 mg PO QHS Label Comments: hydrocodone-acetaminophen 5-325 mg tablet 1 tab PO Q6H PRN PRN (Reason: Pain) 3 Days Qty: 10 0RF sulfasalazine 500 mg tablet,delayed release (DR/EC) 500 mg PO BID acetaminophen 500 mg Tablet 1,000 mg PO DAILY triamcinolone acetonide 0.1 % cream 1 applic TOPICAL DAILY Label Comments: APPLY CREAM EXTERNALLY TO AFFECTED AREAS THROUGHOUT THE BODY TWICE DAILY FOR 3 WEEKS. THEN TAKE 1 WEEK OFF THEN REPEAT NEEDED loratadine 10 mg Tablet 10 mg PO DAILY Referrals / Follow Up: Kateryna Medina MD [Primary Care Provider] - Tye Navarro MD [Med Staff - Active Staff] - Disposition Disposition (needs filled in before D/C Order can be placed): Home, Self Care
--- NOTE | 2022-09-24 12:00 | OP.PCM_ITS ---
Report of Operation Date of Procedure: 09/24/22 Pre-Operative Diagnosis: Obstructing right ureteral calculus Post-Operative Diagnosis: Same, calculus mid ureter Surgery/Procedure Performed:: Cystoscopy and right stent placement retrograde pyelogram Description of Surgical Findings:: Patient was taken back to the operating room and is with duction of general anesthesia she was placed in dorsolithotomy position. Went of the bladder with a 21 [place] rigid cystourethroscope the entire length the urethra is normal trigone is normal and I did not identify any tumors in the bladder I then cannulated the right ureter orifice with a Glidewire advanced a wire past the stone that he could see in the mid ureter and I probably could treat the stones with shockwave lithotripsy on a later date when the machine is available. So for now once we confirm the placement of the wire retrograde pyelograms performed could see the wire in good position then over the wire I placed a stent and then once the stent was in good position I drained the bladder patient anesthetic was reversed and taken back to PACU in good condition I will set her up for right ESWL next available date Surgeon: Tye Navarro Type of Anesthesia: MAC Admit VTE Documentation VTE Present on Admission: No VTE Mechan Device Prophylaxis: SCD's
[2022-09-24] MEDS: HYDROcodone Bitartrate/Apap 5/325 Tablet PO (13:41)
== END 2022-09-24 14:14 | disposition home or self-care (01) ==
LOC: SDC 09:58 → AC 09:59
PROVIDERS: PCP Family Medicine; Referring Provider Urology; Visit Provider Urology
PROC: (CPT 52332; principal; 2022-09-24 11:50)
DX: N20.1 Calculus of ureter (principal); I10 Essential (primary) hypertension; M51.36 Other intervertebral disc degeneration, lumbar region; Z79.899 Other long term (current) drug therapy
CPT/HCPCS: 52332; 00918; 76000; J7120; C1769; C2617; J2405

== ENCOUNTER → 2022-10-10 | Outpatient (CLI) | payer MEDICARE, SELFPAY ==
--- NOTE | 2022-10-10 14:38 | RAD_ITS ---
STUDY: X-RAY CHEST REASON FOR EXAM: Female, 66 years old. COUGH TECHNIQUE: PA and lateral views of the chest. COMPARISON: 06/07/2020 FINDINGS: The lungs are clear and expanded. There is no demonstrated pleural abnormality. Normal size heart. Normal mediastinum and eduarda. Normal visualized pulmonary arteries. Normal visualized aortic arch and descending thoracic aorta. There are diffuse degenerative changes of the visualized thoracic spine. Normal visualized ribs, clavicles, and shoulders. There is no demonstrated abnormality of the visualized soft tissue structures of the upper abdomen. RAD/Chest PA and Lateral IMPRESSION: No acute pulmonary process Electronically Signed: Miah Fuentes MD at 14:48 EDT ,
== END | disposition home or self-care (01) ==
LOC: MTRAD 14:37
PROVIDERS: PCP Family Medicine; Referring Provider Nurse Practitioner Family; Visit Provider Nurse Practitioner Family
DX: R05.9 Cough, unspecified (principal)
CPT/HCPCS: 71046

== ENCOUNTER 2022-10-23 10:11 | Observation (INO) | payer MEDICARE, SELFPAY ==
[2022-10-23] VITALS (8 sets, daily range): BP systolic 122–152; BP diastolic 69–82; PULSE 70–86; RESP 15–18; TEMP 35.8–36.6; O2SAT 93–98; BMI 28.5
--- NOTE | 2022-10-23 10:25 | CT_ITS ---
STUDY: CT ABDOMEN AND PELVIS WITHOUT CONTRAST REASON FOR EXAM: Female, 67 years old. Flank pain RADIATION DOSAGE (If Supplied By Facility): CTDIvol = ( 10.88 ) mGy, DLP = ( 589.66 ) mGycm TECHNIQUE: Transaxial images were obtained from the dome of the diaphragm to the symphysis pubis without oral contrast, and without intravenous contrast. Sagittal and coronal images were reconstructed. Individualized dose optimization techniques were used for this CT. COMPARISON: 09/19/2022 FINDINGS: Evaluation of the abdominal viscera is limited in the absence of intravenous contrast. There is atelectasis at the lung bases. The visualized portions of the heart and pericardium are within normal limits. The patient is status post cholecystectomy. The liver demonstrates an unremarkable unenhanced appearance. The spleen is normal in size. The pancreas demonstrates an unremarkable unenhanced appearance. The adrenal glands are within normal limits. There is stable moderate to severe right hydroureteronephrosis. The previously seen 6 mm stone in the right ureter is no longer present. However, there are multiple smaller stones in the right mid to distal ureter, measuring up to 3 mm. There are subcentimeter nonobstructing stones in the collecting system of the right kidney, measuring up to 4 mm. There are no left renal or ureteral stones. There is no left hydronephrosis. Normal visualized stomach. There is no bowel obstruction or inflammation. The appendix is not visualized, but there are no findings to suggest acute appendicitis. The aorta is normal in caliber. There is no abdominal or pelvic free air, free fluid, fluid collection or lymphadenopathy. There are no destructive osseous lesions. CT/Abdomen/Pelvis without Cont IMPRESSION: Stable moderate to severe right hydroureteronephrosis. The previously seen 6 mm stone in the right ureter is no longer present. However, there are multiple smaller stones in the right mid to distal ureter, measuring up to 3 mm. Subcentimeter nonobstructing stones in the collecting system of the right kidney, measuring up to 4 mm. No left renal or ureteral stones. No left hydronephrosis. Electronically Signed: Serge Howe MD at 11:35 EDT ,
--- NOTE | 2022-10-23 10:27 | ED.VIS.GI ---
HPI HPI - GI History of Present Illness Chief Complaint: Flank Pain Narrative Narrative: 67-year-old female states that she has right flank pain that is worsening after having a stent removed from her right ureter yesterday. She relates history that she was seen over a month ago at the end of August in the emergency department, and diagnosed with a large right kidney stone/ureteral stone. She had a stent placed by Dr. Navarro. They were unable to break up the stone until she had surgery on Friday, 5 days ago. While she is no longer having hematuria, after removal of the stent, she still feels right flank pain and right back pain. She denies any fevers or chills, but she complains of fatigue, pain, not feeling well. She has taken her last oxycodone, and even after a fall yesterday, she is not in pain, but states she is having right flank pain and does not feel well. PFSH [facility] Medical History Arthritis FH: total knee replacement Fibromyalgia Gastric reflux History of IBS HTN (hypertension) Kidney stone on right side Migraine headache Post-menopausal Rectal fistula Sjogren syndrome with dental involvement Sjogren syndrome with inflammatory arthritis Wears contact lenses Wears dentures Wears glasses Home Medications amitriptyline 75 mg tablet 75 mg PO QHS MIGRAINES 05/16/17 [History Last Taken 09/23/22] doxepin 75 mg capsule 75 mg PO QHS FIBROMYALGIA 05/16/17 [History Last Taken 09/23/22] propranolol 80 mg capsule,24 hr,extended release 80 mg PO QHS BP 05/16/17 [History Last Taken 09/23/22] hydrocodone-acetaminophen 5-325mg 5mg-325mg 1 tab PO Q6H PRN PRN Pain 3 days #10 TABLETS 09/19/22 [Rx Last Taken 09/23/22] acetaminophen 500 mg tablet 1,000 mg PO DAILY 09/24/22 [History Last Taken 09/23/22] cephalexin 500 mg capsule 500 mg PO BID 3 days #6 caps 09/24/22 [Rx Last Taken Unknown] loratadine 10 mg tablet 10 mg PO DAILY 09/24/22 [History Last Taken 09/23/22] sulfasalazine 500 mg tablet,delayed release 500 mg PO BID 09/24/22 [History Last Taken 09/23/22] triamcinolone acetonide 0.1 % topical cream 1 applic topical DAILY 09/24/22 [History Last Taken 09/23/22] Allergy/AdvReac Type Severity Reaction Status Date / Time latex Allergy Rash Verified 10/23/22 10:14 lavender (Lavandula Allergy Other Verified 10/23/22 10:14 angustifolia) benzocaine AdvReac CONTACT Verified 10/23/22 10:14 DERMATITIS codeine AdvReac Nausea/Vom/ Verified 10/23/22 10:14 Diarrhea prednisone AdvReac inside of Verified 10/23/22 10:14 mouth raw procaine AdvReac CONTACT Verified 10/23/22 10:14 DERMATITIS tetracaine AdvReac CONTACT Verified 10/23/22 10:14 DERMATITIS Family History Father Cancer Hypertension Mother GBS (Guillain Gaffney syndrome) Surgical History H/O hemorrhoidectomy H/O tubal ligation History of cholecystectomy History of total left knee replacement Hx of appendectomy Social History Smoking Status: Never smoker ROS ROS ED ROS Narrative Constitutional: No fever, no chills. Malaise and fatigue. HEENT: No sore throat. No neck pain. No loss of vision. No rhinorrhea. Cardiovascular: No chest pain. No palpitations. No pedal edema. Respiratory: No cough, no shortness of breath. Abdominal: No abdominal pain. Right-sided flank pain/low back pain. No nausea. No vomiting. Genitourinary: No dysuria. No hematuria-resolved. Musculoskeletal: No myalgias. No arthralgias. Neurologic: No headaches. No dizziness. No lightheadedness. Skin: No rash. No change in color. Psychiatric: No depression. No anxiety. EXAM Physical Exam Narrative Exam Narrative: Afebrile. Vital signs noted. HEENT: Normocephalic. Atraumatic. PERRL, EOMI. Neck soft and supple. No point tenderness or step off. Cardiovascular: Regular rate and rhythm. No murmurs, rubs, or gallops appreciated. Respiratory: No tachypnea. Lungs clear to auscultation bilaterally. Gastrointestinal: Abdomen soft, nontender, with normoactive bowel sounds. No rebound or guarding. Questionable CVA tenderness to percussion, right. Neurological: Awake. Alert. Nonfocal, nonlateralizing. Skin: No rash. Normal color. No pallor. Musculoskeletal: No pedal edema. Full range of motion extremities. Pelvis stable. Const Vital Signs: 10/23/22 10:12 10/23/22 10:20 10/23/22 11:51 Temperature 96.5 F L 97.5 F L Temperature Source Temporal Oral Pulse Rate 70 86 Respiratory Rate 18 15 Respiratory Effort Normal Non-Labored Respiratory Pattern Normal Blood Pressure 122/82 H 137/69 H Blood Pressure Mean 95 91 Pulse Ox 97 97 Oxygen Delivery Method Room Air Room Air MDM MDM MDM Narrative Medical decision making narrative: I reviewed her prior records. As she states that she had a stent placed and had lithotripsy of a large stone on the right, concern is for obstructing fragment of the right ureter with continued hydronephrosis. Comprehensive work-up was pursued. I do feel that repeat CT imaging is indicated to check for hydronephrosis or obstructing fragment. Urinalysis and basic laboratory work will also be obtained. Initially she was administered IV fluids at 250 mL/h along with Toradol for analgesia. I reviewed the patient's laboratory work, and she has a normal white count of 8.0, hemoglobin stable at 11.3, hematocrit 34.7. In review of her BMP, she has an elevated BUN of 21 with a creatinine of 1.19. Urinalysis is negative for infection with negative nitrites but she does have elevated RBCs on micro analysis. CT of the abdomen and pelvis was obtained without contrast. I reviewed her imaging, and I reviewed the radiology report which reports fragments in the mid to distal ureter with stable hydronephrosis and dilation of the ureter. The fragments measure up to 3 mm. Upon repeat examination, she states that her pain is improving. I discussed the patient with her urologist, Dr. Navarro, who will admit the patient to the medical/surgical floor for possible intervention. I do not feel that she is becoming septic from her ureteral obstruction as she is not febrile, she does not have a white count, and is not tachycardic. Antibiotics were deferred to urology. Disposition is admit in stable condition. History & Record Review Discussion w/independent historian: Patient and Family Additional record(s) reviewed:: Prior outpatient record, Prior ED visit (6.1 mm calculus noted on right) and Prior labs Lab Data Attestation: I reviewed the patient's lab results. Labs: Laboratory Results - last 24 hr 10/23/22 10/23/22 10/23/22 10:40 10:48 10:48 WBC 8.0 RBC 3.64 L Hgb 11.3 L Hct 34.7 L MCV 95.3 MCH 31.0 MCHC 32.6 RDW Std Deviation 41.1 RDW Coeff of Aide 11.9 Plt Count 323 MPV 9.5 Immature Gran % (Auto) 0.200 Neut % (Auto) 71.9 H Lymph % (Auto) 17.0 L [place] % (Auto) 10.0 Eos % (Auto) 0.5 Baso % (Auto) 0.4 Absolute Neuts (auto) 5.8 Absolute Lymphs (auto) 1.36 Nucleated RBC % 0 Sodium 136 Potassium 4.3 Chloride 102 Carbon Dioxide 28.0 Anion Gap 6 BUN 21 H Creatinine 1.19 H Estim Creat Clear Calc 42.36 Est GFR (MDRD) Af Amer 58 L Est GFR (MDRD) Non-Af 48 L BUN/Creatinine Ratio 17.6 Glucose 110 H Calcium 9.3 Urine Color Yellow Urine Clarity Clear Urine pH 7.0 Ur Specific [place] 1.010 Urine Protein Negative Urine Glucose (UA) Normal Urine Ketones Negative Urine Occult Blood 250 H Urine Nitrite Negative Urine Bilirubin Negative Urine Urobilinogen Normal Ur Leukocyte Esterase 100 H Urine RBC 10-25 SEEN Urine WBC 0-5 SEEN Ur Squamous Epith Cells 0-5 SEEN Urine Bacteria 0 SEEN Urine Mucus 0 SEEN Radiography Diagnostic Testing: Clinical Impression(s) from Imaging Studies Abdomen/Pelvis CT 10/23/22 10:25 IMPRESSION: Stable moderate to severe right hydroureteronephrosis. The previously seen 6 mm stone in the right ureter is no longer present. However, there are multiple smaller stones in the right mid to distal ureter, measuring up to 3 mm. Subcentimeter nonobstructing stones in the collecting system of the right kidney, measuring up to 4 mm. No left renal or ureteral stones. No left hydronephrosis. Electronically Signed: Serge Howe MD at 11:35 EDT , Discharge Plan Dx/Rx/DC Orders Clinical Impression: Hydronephrosis, Right ureteral calculus, Ureter obstruction Disposition Disposition: Acute Care Hospital [facility]
[2022-10-23] MEDS: 0.9% Normal Saline 1,000 ML 250 ML IV (10:45)
[2022-10-23] MEDS: Ketorolac 15 MG/ML Vial IV ×2 (10:45→18:45)
[2022-10-23] MEDS: Ondansetron 4 MG/2 ML Vial IV (10:46)
[2022-10-23 10:47] LABS: Bacteria 0 SEEN /hpf (None Seen); Mucous, Urine 0 SEEN /hpf (<or=2+)
[2022-10-23 10:55] LABS: Absolute Lymphocyte Count 1.36 X10^3/uL (0.83-4.51); Absolute Neutrophil Count 5.8 X10^3/uL (2.0-7.7); Basophil# 0.03 X10^3/uL; Basophil% 0.4 % (0-1); Eosinophil# 0.04 X10^3/uL; Eosinophils% 0.5 % (0-5); Hematocrit 34.7 % (37-47); Hemoglobin 11.3 g/dL (12.0-15.0); Lymphocyte # 1.36 X10^3/ul (0.83-4.51); Mean Corp Hgb Conc 32.6 g/dL (32-36); Mean Corpuscular Volume 95.3 fL (81-99); Mean Platelet Vol. 9.5 fl (6.2-12.0); NRBC Flagged by Analyzer 0 % (0-5); Neutrophil # 5.77 X10^3/uL (2.7-7.7); Neutrophil % 71.9 % (47-70); Platelet Count 323 K/mm3 (150-450); RBC Distribution Width CV 11.9 % (11.6-14.6); RBC Distribution Width SD 41.1 fl (35.1-43.9); Red Blood Count 3.64 M/mm3 (4.2-5.4)
[2022-10-23 10:58] LABS: Color, Urine Yellow (Yellow); Glucose, Dipstick Normal (Normal); Ketone-Dipstick Negative (Negative); Leukocyte Esterase-Dipstick 100 /ul (Negative); Nitrite-Dipstick Negative (Negative); Occult Blood-Urine 250 /ul (Negative); Protein-Dipstick Negative (Negative); Urine Bilirubin Dipstick Negative (Negative); Urine Clarity Clear (Clear); Urine Urobilinogen Normal (Normal)
[2022-10-23 11:18] LABS: Red Blood Cells-Urine 10-25 SEEN /hpf (0-5); Squamous Epithelial Cells - UA 0-5 SEEN /hpf (5-10); White Blood Cells 0-5 SEEN /hpf (0-5)
[2022-10-23 11:22] LABS: Anion Gap 6 (5-15); BUN 21 mg/dL (7-18); BUN/Creat Ratio 17.6 RATIO (10-20); Calcium,Total 9.3 mg/dL (8.5-10.1); Chloride 102 mmol/L (98-107); Creatinine, Serum 1.19 mg/dL (0.55-1.02); EST Glomerular Filtration Rate 48 mL/min (>60); Est Glom Filt Rate - Afr Amer 58 mL/min (>60); Estimated Creatinine Clearance 42.36 ml/min; Glucose 110 mg/dL (74-106); Potassium 4.3 mmol/L (3.5-5.1); Sodium Level 136 mmol/L (136-145)
--- NOTE | 2022-10-23 11:58 | NURSING ---
102 ANAI HYDRONEPHRONIS, HYDROUTER, RETAINED STONE FRAGEMENTS
--- NOTE | 2022-10-23 12:16 | PCM.HP.STD ---
HPI - General General Date of Admission: 10/23/22 Chief Complaint: 3 mm stones after treatment causing severe pain HPI Narrative MARNI PETERSON, is a 67 F who presents to the emergency room in severe pain she had shockwave lithotripsy last week and the stones were broken up really well, yesterday we remove the stent I did tell her that she Garcia the past some stone fragments. She may have some pain. She then presented to the emergency room with severe pain CT scan was done and demonstrates multiple small stones along the course of the right ureter they are all about 3 mm in size but her pain was intractable so she will be admitted for pain control and will plan to take her surgery for ureteroscopy extraction of the stones and stent placement [facility] Medical History Arthritis FH: total knee replacement Fibromyalgia Gastric reflux History of IBS HTN (hypertension) Kidney stone on right side Migraine headache Post-menopausal Rectal fistula Sjogren syndrome with dental involvement Sjogren syndrome with inflammatory arthritis Wears contact lenses Wears dentures Wears glasses Home Medications amitriptyline 75 mg tablet 75 mg PO QHS MIGRAINES 05/16/17 [History Last Taken 09/23/22] doxepin 75 mg capsule 75 mg PO QHS FIBROMYALGIA 05/16/17 [History Last Taken 09/23/22] propranolol 80 mg capsule,24 hr,extended release 80 mg PO QHS BP 05/16/17 [History Last Taken 09/23/22] hydrocodone-acetaminophen 5-325mg 5mg-325mg 1 tab PO Q6H PRN PRN Pain 3 days #10 TABLETS 09/19/22 [Rx Last Taken 09/23/22] acetaminophen 500 mg tablet 1,000 mg PO DAILY 09/24/22 [History Last Taken 09/23/22] cephalexin 500 mg capsule 500 mg PO BID 3 days #6 caps 09/24/22 [Rx Last Taken Unknown] loratadine 10 mg tablet 10 mg PO DAILY 09/24/22 [History Last Taken 09/23/22] sulfasalazine 500 mg tablet,delayed release 500 mg PO BID 09/24/22 [History Last Taken 09/23/22] triamcinolone acetonide 0.1 % topical cream 1 applic topical DAILY 09/24/22 [History Last Taken 02/27/23] Allergy/AdvReac Type Severity Reaction Status Date / Time latex Allergy Rash Verified 10/23/22 10:14 lavender (Lavandula Allergy Other Verified 10/23/22 10:14 angustifolia) benzocaine AdvReac CONTACT Verified 10/23/22 10:14 DERMATITIS codeine AdvReac Nausea/Vom/ Verified 10/23/22 10:14 Diarrhea prednisone AdvReac inside of Verified 10/23/22 10:14 mouth raw procaine AdvReac CONTACT Verified 10/23/22 10:14 DERMATITIS tetracaine AdvReac CONTACT Verified 10/23/22 10:14 DERMATITIS Family History Father Cancer Hypertension Mother GBS (Guillain Banks syndrome) Surgical History H/O hemorrhoidectomy H/O tubal ligation History of cholecystectomy History of total left knee replacement Hx of appendectomy Social History Smoking Status: Never smoker ROS Constitutional Constitutional: Denies chills, fever(s) or malaise Eyes Eyes: Denies blurry vision or change in vision ENT HEENT: Reports none Cardiovascular Cardiovascular: Denies chest pain or palpitations Respiratory/Chest Respiratory/Chest: Denies cough or shortness of breath with exertion Gastrointestinal Gastrointestinal: Denies abdominal pain, constipation or diarrhea Musculoskeletal Musculoskeletal: Denies back pain, joint stiffness or joint swelling Integumentary Integumentary: Denies dry skin, jaundice, lesions or rash Neurologic Neurologic: Denies confusion, syncope or weakness Psychiatric Psychiatric: Reports none; Denies anxiety or depression Endocrine Endocrinology: Denies excessive sweating, fatigue or flushing Hematologic/Lymphatic Hematologic/Lymphatic: Denies anemia, easy bleeding or easy bruising Vital Signs Vital Signs Vital Signs: 10/23/22 10:12 10/23/22 10:20 10/23/22 11:51 Temperature 96.5 F L 97.5 F L Temperature Source Temporal Oral Pulse Rate 70 86 Respiratory Rate 18 15 Respiratory Effort Normal Non-Labored Respiratory Pattern Normal Blood Pressure 122/82 H 137/69 H Blood Pressure Mean 95 91 Pulse Ox 97 97 Oxygen Delivery Method Room Air Room Air Weight Weight: 80.286 kg Body Mass Index (BMI) 28.5 Physical Exam Const alert and oriented x3 General Appearance: cooperative HEENT normocephalic, head/scalp atraumatic, EAC's normal and TM's normal bilaterally Eyes PERRL and EOMs intact bilaterally Pupil: sluggish Neck no lymphadenopathy, supple and no JVD General: trachea midline Lymph Lymphatic: no lymphadenopathy noted, lymphedema and lymphadenopathy Resp normal respiratory effort, normal air movement and clear to auscultation bilaterally Cardio regular rate, regular rhythm and peripheral pulses 2+ throughout GI soft to palpation, non-tender and non-distended Extremity normal capillary refill and no clubbing, cyanosis or edema General Extremity: no tenderness to palpation of joints or extremities Skin no rashes or lesions noted General Skin Exam: turgor normal Lesions: no lesions Rashes: no rashes Neuro CN's II-XII intact bilaterally Speech: speech normal Motor Exam: strength 5/5 throughout; Negative for general weakness Psych thought process normal, cooperative and affect normal Appearance: appropriate Results Lab / Micro Data Result Diagrams: 10/23/22 10:48 10/23/22 10:48 Labs: Laboratory Results - last 24 hr 10/23/22 10:40: Urine Color Yellow, Urine Clarity Clear, Urine pH 7.0, Ur Specific [place] 1.010, Urine Protein Negative, Urine Glucose (UA) Normal, Urine Ketones Negative, Urine Occult Blood 250 H, Urine Nitrite Negative, Urine Bilirubin Negative, Urine Urobilinogen Normal, Ur Leukocyte Esterase 100 H, Urine RBC 10-25 SEEN, Urine WBC 0-5 SEEN, Ur Squamous Epith Cells 0-5 SEEN, Urine Bacteria 0 SEEN, Urine Mucus 0 SEEN 10/23/22 10:48: WBC 8.0, RBC 3.64 L, Hgb 11.3 L, Hct 34.7 L, MCV 95.3, MCH 31.0, MCHC 32.6, RDW Std Deviation 41.1, RDW Coeff of Aide 11.9, Plt Count 323, MPV 9.5, Immature Gran % (Auto) 0.200, Neut % (Auto) 71.9 H, Lymph % (Auto) 17.0 L, [place] % (Auto) 10.0, Eos % (Auto) 0.5, Baso % (Auto) 0.4, Absolute Neuts (auto) 5.8, Absolute Lymphs (auto) 1.36, Nucleated RBC % 0 10/23/22 10:48: Sodium 136, Potassium 4.3, Chloride 102, Carbon Dioxide 28.0, Anion Gap 6, BUN 21 H, Creatinine 1.19 H, Estim Creat Clear Calc 42.36, Est GFR (MDRD) Af Amer 58 L, Est GFR (MDRD) Non-Af 48 L, BUN/Creatinine Ratio 17.6, Glucose 110 H, Calcium 9.3 Radiology Impression Abdomen/Pelvis CT 10/23/22 10:25 IMPRESSION: Stable moderate to severe right hydroureteronephrosis. The previously seen 6 mm stone in the right ureter is no longer present. However, there are multiple smaller stones in the right mid to distal ureter, measuring up to 3 mm. Subcentimeter nonobstructing stones in the collecting system of the right kidney, measuring up to 4 mm. No left renal or ureteral stones. No left hydronephrosis. Electronically Signed: Serge Howe MD at 11:35 EDT , Assessment & Plan Assessment/Plan (1) Right ureteral calculus: PLAN: severe pain from stone fragments (2) Hydronephrosis: PLAN: same
--- NOTE | 2022-10-23 12:18 | DCINST_ITS ---
Discharge Instructions Diet Discharge Diet: No restrictions, Light diet - advance as tolerated and Soft diet Activity Discharge Activity: Return to Normal Activity Dressing / Incision Call your doctor if your incision/area has: Continuous Slow Oozing Follow Up Care Please Follow Up With: Tye Navarro MD When: call for appt to remove stent Test Results: Test results from this visit will be discussed in further detail at your follow- up appointment, if applicable. Discharge Plan Admission Admit Date/Time: 10/23/22 12:00 Attending Provider: Tye Navarro Primary Care Provider: Kateryna Medina Discharge Orders/Prescriptions Prescriptions: No Action amitriptyline 75 MG tablet 75 mg PO QHS Label Comments: doxepin 75 MG capsule 75 mg PO QHS propranolol 80 MG capsule 80 mg PO QHS Label Comments: hydrocodone-acetaminophen 5-325 mg tablet 1 tab PO Q6H PRN PRN (Reason: Pain) 3 Days Qty: 10 0RF sulfasalazine 500 mg tablet,delayed release (DR/EC) 500 mg PO BID acetaminophen 500 mg Tablet 1,000 mg PO DAILY triamcinolone acetonide 0.1 % cream 1 applic TOPICAL DAILY Label Comments: APPLY CREAM EXTERNALLY TO AFFECTED AREAS THROUGHOUT THE BODY TWICE DAILY FOR 3 WEEKS. THEN TAKE 1 WEEK OFF THEN REPEAT NEEDED loratadine 10 mg Tablet 10 mg PO DAILY cephalexin 500 mg capsule 500 mg PO BID 3 Days Qty: 6 0RF Referrals / Follow Up: Kateryna Medina MD [Primary Care Provider] -
--- NOTE | 2022-10-23 13:40 | EKG12_ITS ---
Test Reason : PRE OP Blood Pressure : / mmHG Vent. Rate : 068 BPM Atrial Rate : 068 BPM P-R Int : 228 ms QRS Dur : 090 ms QT Int : 386 ms P-R-T Axes : 019 -39 017 degrees QTc Int : 410 ms Sinus rhythm with 1st degree A-V block Left axis deviation Cannot rule out Anterior infarct , age undetermined Abnormal ECG When compared with ECG of 29-JUN-2018 11:40, NH interval has increased Confirmed by HAIM MORALES, ALEM ([id number]), editor publications JUDE LEE ([id number]) on 10/29/2022 7:49:52 AM Referred By: ANAI Confirmed By:ORVILLE WHITMORE MD
[2022-10-23] MEDS: Cefazolin 1 GM/50 ML BAG IV ×2 (13:56→16:26)
[2022-10-23] MEDS: 0.9% Normal Saline 1,000 ML 125 ML IV (13:56)
[2022-10-23] MEDS: 0.9% Saline Lock 10 ML Syringe IV (13:56)
--- NOTE | 2022-10-23 17:13 | OP.PCM_ITS ---
Report of Operation Date of Procedure: 10/23/22 Pre-Operative Diagnosis: Stones in the right ureter status post treatment with shockwave lithotripsy Post-Operative Diagnosis: The same stones causing obstruction also severe inflammation of the mid ureter with stricture Surgery/Procedure Performed:: Cystoscopy, retrograde pyelogram, interpretation fluoroscopic images, balloon dilation of the ureter, right ureteroscopy basket extraction of stone fragments, right ureteroscopy laser lithotripsy of stone fragments and stent placement Description of Surgical Findings:: This is a 67-year-old female who had a stone in the mid right ureter she underwent an emergency cystoscopy stent placement for an obstructing stone that was stuck in the mid ureter. She then underwent shockwave lithotripsy to break the stone which did break under lithotripsy very well under x-ray. We then remove the stent yesterday in the office but then she presented to the emergency room today with severe pain CAT scan was done and demonstrates multiple small stones in the ureter about 3 mm in size but because of severe inflammation of the ureter she is not been able to pass the stones and she is was having severe pain on the left side so it took her to patient to surgery today for ureteroscopy and extraction of the stones and possible laser of more fragments. Patient was taken back to the operating room after smooth induction of general anesthesia she was placed in dorsolithotomy position. I went in the bladder with a 21 Latvian rigid cystourethroscope I cannulated the right ureteral orifice with a Pollick catheter performed a retrograde pyelogram we can see contrast go up and then very narrowed and then there is also a stone in the distal ureter. And then I put a wire up next the wire went in with a offset ureteroscope but it was too large then we switched over to a SlimLine ureteroscope and then I was able to get up the ureter but then I encountered an area of severe inflammation in the ureter some mucosal tearing in the ureter and a lot of stones were stuck behind this area. So we advanced the balloon dilator to this area and then I balloon dilated with a 15 Latvian 10 cm balloon dilator. And then I went back in with a semirigid SlimLine ureteroscope was able to get to the area quite easily now and then encountered multiple fragments that were again stuck on this area that was inflamed and strictured so I lasered the stones completely and little tiny pieces finally had completely lasered all the stones that were causing obstruction and pain and problems and then I worked my way down the ureter there is still a lot of inflammation in the area where the stone had been stuck so I went up with a flexible ureteroscope I checked the upper pole midpole lower pole the kidney there is no other major fragments with there is a lot of debris in the kidney and is very hydronephrotic worked my way down the ureter placed a stent on that right side and we will leave the stent in for about 3 weeks to let it heal since he had a lot of inflammation and allow mucosal tearing in the ureter where the stone was stuck. So bladder was drained patient anesthetic was reversed and she was taken back to PACU in good condition she will be discharged home today and I will see her in the office 3 weeks for cystoscopy stent removal Surgeon: Tye Navarro Type of Anesthesia: General Drains: stent Admit VTE Documentation VTE Present on Admission: No VTE Mechan Device Prophylaxis: SCD's VTE Pharm Prophylaxis ordered?: No
== END 2022-10-23 19:30 | disposition home or self-care (01) ==
LOC: ED 11:58 → PCU 12:16
PROVIDERS: Admitting Provider Urology; Emergency Provider Emergency Medicine; PCP Family Medicine; Visit Provider Urology
PROC: 0TJ98ZZ Inspection of Ureter, Via Natural or Artificial Opening Endoscopic (ICD-10-PCS; CPT 52352; principal; 2022-10-23 17:30)
DX: N13.2 Hydronephrosis with renal and ureteral calculous obstruction (principal); M06.9 Rheumatoid arthritis, unspecified; M35.00 Sjogren syndrome, unspecified; Z79.899 Other long term (current) drug therapy; M19.90 Unspecified osteoarthritis, unspecified site; M79.7 Fibromyalgia; K21.9 Gastro-esophageal reflux disease without esophagitis; I10 Essential (primary) hypertension
CPT/HCPCS: 52356; 00918; 74176; 76000; 80048; 81001; 85025; 93005; 94668; 96361; 96374; 96375; 96376; 99284; J7030; A4216; C1726; C1769; C2617; J2405

== ENCOUNTER → 2022-11-15 | Outpatient (CLI) | payer MEDICARE, SELFPAY ==
[2022-11-15 12:09] LABS: Absolute Lymphocyte Count 1.28 X10^3/uL (0.83-4.51); Absolute Neutrophil Count 2.5 X10^3/uL (2.0-7.7); Basophil# 0.03 X10^3/uL; Basophil% 0.7 % (0-1); Eosinophil# 0.09 X10^3/uL; Eosinophils% 2.1 % (0-5); Hematocrit 38.6 % (37-47); Hemoglobin 12.4 g/dL (12.0-15.0); Lymphocyte # 1.28 X10^3/ul (0.83-4.51); Lymphocyte % 29.4 % (19-41); Mean Corp Hgb Conc 32.1 g/dL (32-36); Mean Corpuscular Hgb 30.8 pg (27.0-32.0); Mean Corpuscular Volume 95.8 fL (81-99); Monocyte# 0.49 X10^3/uL; Monocyte% 11.2 % (0-10); NRBC Flagged by Analyzer 0 % (0-5); Neutrophil # 2.46 X10^3/uL (2.7-7.7); Neutrophil % 56.4 % (47-70); Platelet Count 269 K/mm3 (150-450); RBC Distribution Width SD 42.1 fl (35.1-43.9); Red Blood Count 4.03 M/mm3 (4.2-5.4); White Blood Count 4.4 K/mm3 (4.4-11.0)
[2022-11-15 12:35] LABS: ALB/GLOB Ratio 0.9 RATIO (0.9-2.4); AST(SGOT) 21 U/L (15-37); Alanine Aminotransfer ALT/SGPT 24 U/L (13-56); Albumin, Serum 3.7 g/dL (3.2-5.0); Alkaline Phosphatase 81 U/L (45-117); Anion Gap 2 (5-15); BUN 22 mg/dL (7-18); BUN/Creat Ratio 26.6 RATIO (10-20); Calcium,Total 9.5 mg/dL (8.5-10.1); Chloride 104 mmol/L (98-107); Creatinine, Serum 0.83 mg/dL (0.55-1.02); EST Glomerular Filtration Rate 73 mL/min (>60); Est Glom Filt Rate - Afr Amer 88 mL/min (>60); Globulin 4.2 g/dL (2.2-4.2); Glucose 81 mg/dL (74-106); Potassium 3.7 mmol/L (3.5-5.1); Protein, Total 7.9 g/dL (6.4-8.2); Sodium Level 137 mmol/L (136-145)
== END | disposition home or self-care (01) ==
LOC: MTLAB 09:58
PROVIDERS: PCP Family Medicine; Referring Provider Internal Medicine Rheumatology; Visit Provider Internal Medicine Rheumatology
DX: M06.4 Inflammatory polyarthropathy (principal); Z79.899 Other long term (current) drug therapy
CPT/HCPCS: 36415; 80053; 85025

== ENCOUNTER → 2023-02-04 | Outpatient (CLI) | payer MEDICARE, SELFPAY ==
[2023-02-04 17:40] LABS: Absolute Neutrophil Count 3.5 X10^3/uL (2.0-7.7); Basophil# 0.04 X10^3/uL; Basophil% 0.6 % (0-1); Eosinophil# 0.13 X10^3/uL; Hematocrit 39.3 % (37-47); Lymphocyte % 33.1 % (19-41); Mean Corp Hgb Conc 33.1 g/dL (32-36); Mean Corpuscular Hgb 30.8 pg (27.0-32.0); Mean Corpuscular Volume 93.1 fL (81-99); Mean Platelet Vol. 9.6 fl (6.2-12.0); Monocyte# 0.55 X10^3/uL; Monocyte% 8.7 % (0-10); NRBC Flagged by Analyzer 0 % (0-5); Neutrophil # 3.52 X10^3/uL (2.7-7.7); Neutrophil % 55.4 % (47-70); Platelet Count 273 K/mm3 (150-450); RBC Distribution Width CV 12.2 % (11.6-14.6); RBC Distribution Width SD 41.9 fl (35.1-43.9); Red Blood Count 4.22 M/mm3 (4.2-5.4); White Blood Count 6.4 K/mm3 (4.4-11.0)
[2023-02-04 17:48] LABS: ALB/GLOB Ratio 0.8 RATIO (0.9-2.4); AST(SGOT) 21 U/L (15-37); Alanine Aminotransfer ALT/SGPT 19 U/L (13-56); Albumin, Serum 3.8 g/dL (3.2-5.0); Alkaline Phosphatase 98 U/L (45-117); Anion Gap 3 (5-15); BUN 19 mg/dL (7-18); BUN/Creat Ratio 23.8 RATIO (10-20); Calcium,Total 9.2 mg/dL (8.5-10.1); Chloride 102 mmol/L (98-107); EST Glomerular Filtration Rate 76 mL/min (>60); Est Glom Filt Rate - Afr Amer 92 mL/min (>60); Globulin 4.6 g/dL (2.2-4.2); Glucose 103 mg/dL (74-106); Protein, Total 8.4 g/dL (6.4-8.2); Sodium Level 138 mmol/L (136-145)
== END | disposition home or self-care (01) ==
LOC: MTLAB 16:11
PROVIDERS: PCP Family Medicine; Referring Provider Internal Medicine Rheumatology; Visit Provider Internal Medicine Rheumatology
DX: M06.4 Inflammatory polyarthropathy (principal); M79.7 Fibromyalgia; Z79.899 Other long term (current) drug therapy
CPT/HCPCS: 36415; 80053; 85025

== ENCOUNTER → 2023-02-25 | Outpatient (CLI) | payer MEDICARE, SELFPAY ==
--- NOTE | 2023-02-25 14:24 | BI_ITS ---
MAMMOGRAPHY - BILATERAL SCREENING REASON FOR EXAM: Female, 67 years old. Routine annual screening examination. PERTINENT HISTORY: Non-contributory. TECHNIQUE: Digital bilateral breast hellen (3D mammographic acquisition) in the CC and MLO projections. 2-D mediolateral oblique (MLO) and craniocaudad (CC) views of both breasts were obtained. CAD: Full Field Digital Mammography with Computer Added Detection was performed. COMPARISON: Comparison is made with prior study dated February 22, 2022 and December 22, 2019. FINDINGS: Breast Composition: The breasts are almost entirely fatty. There are no dominant masses or suspicious calcifications. Stable small benign-appearing bilateral axillary lymph nodes. No other significant abnormalities are identified. There has been no significant change since the prior study. BI/SCRN MAMM (CAD)W/HELLEN BILAT IMPRESSION: Stable bilateral screening mammogram. Yearly follow-up mammogram recommended. (A) ASSESSMENT CATEGORY: BIRADS Category 2: Benign. A letter regarding these results will be sent to the patient by the facility within 30 days. Approximately 10% of breast cancers are not detected by mammography. A normal mammogram should not delay biopsy of a clinically suspicious abnormality. [id number] Electronically Signed: Tim Jenkins MD at 8:20 EDT ,
== END | disposition home or self-care (01) ==
PROVIDERS: PCP Family Medicine; Referring Provider Family Medicine; Visit Provider Family Medicine
DX: Z13.820 Encounter for screening for osteoporosis (principal); N95.9 Unspecified menopausal and perimenopausal disorder; Z12.31 Encounter for screening mammogram for malignant neoplasm of breast
CPT/HCPCS: 77063; 77067

== ENCOUNTER → 2023-03-06 | Outpatient (CLI) | payer MEDICARE, SELFPAY ==
--- NOTE | 2023-03-06 10:03 | BD_ITS ---
STUDY: DUAL ENERGY X-RAY ABSORPTIOMETRY / DXA REASON FOR EXAM: Female, 67 years old. V76.12ScreeningBONE DENSITY REASON FOR EXAM TECHNIQUE: Bone Mineral Density (BMD) measurements of lumbar spine and bilateral hips were obtained. COMPARISON: None. FINDINGS: Lumbar Spine (L1-L4): g/cm2 (1.009) / T-score (-0.4) / Z-score (1.6) Findings are suggestive of normal bone density with a low fracture risk. Left Femur Total: g/cm2 (0.814) / T-score (-1.0) / Z-score (0.4) Left Femoral Neck: g/cm2 (0.692) / T-score (-1.4) / Z-score (0.3) Right Femur Total: g/cm2 (0.797) / T-score (-1.2) / Z-score (0.2) Right Femoral Neck: g/cm2 (0.686) / T-score (-1.5) / Z-score (0.2) BD/Dexa Bone Density Study IMPRESSION: The patient is considered osteopenic as outlined below according to World Eamon Organization (WHO) criteria with a low fracture risk. Reference Information: The T-score is the number of standard deviations above or below the standard which is normal for young adults at their peak bone mineral density. The World Health Organization (WHO) interprets the T-scores as follows: Above -1 Normal bone density Between -1 and -2.5 Osteopenia Equal to / or below -2.5 Osteoporosis As a practical clinical guideline, osteopenia may be graded as follows: Mild -1 through -1.5 Moderate -1.6 through -2.0 Severe -2.1 through -2.4 The Z-score is the number of standard deviations above or below age-matched controls. A Z-score of less than -1.5 would be considered abnormal. References: 1. NIH Osteoporosis and Related Bone Diseases www osteo.org 2. International Society for Clinical Densitometry www iscd.org 3. National Osteoporosis Foundation www nof.org Electronically Signed: Tim Jenkins MD at 9:21 EDT ,
== END | disposition home or self-care (01) ==
LOC: OPBD 09:50
PROVIDERS: PCP Family Medicine; Referring Provider Family Medicine; Visit Provider Family Medicine
DX: Z78.0 Asymptomatic menopausal state (principal)
CPT/HCPCS: 77080

== ENCOUNTER → 2023-04-22 | Outpatient (CLI) | payer MEDICARE, SELFPAY ==
[2023-04-22 12:54] LABS: ALB/GLOB Ratio 0.9 RATIO (0.9-2.4); AST(SGOT) 21 U/L (15-37); Alanine Aminotransfer ALT/SGPT 28 U/L (13-56); Albumin, Serum 3.9 g/dL (3.2-5.0); Alkaline Phosphatase 80 U/L (45-117); Anion Gap 4 (5-15); BUN 20 mg/dL (7-18); BUN/Creat Ratio 27.1 RATIO (10-20); Calcium,Total 9.5 mg/dL (8.5-10.1); Chloride 103 mmol/L (98-107); Creatinine, Serum 0.74 mg/dL (0.55-1.02); EST Glomerular Filtration Rate 83 mL/min (>60); Est Glom Filt Rate - Afr Amer 100 mL/min (>60); Globulin 4.4 g/dL (2.2-4.2); Glucose 87 mg/dL (74-106); Protein, Total 8.3 g/dL (6.4-8.2); Sodium Level 137 mmol/L (136-145)
[2023-04-22 15:17] LABS: Absolute Lymphocyte Count 1.42 X10^3/uL (0.83-4.51); Absolute Neutrophil Count 2.4 X10^3/uL (2.0-7.7); Basophil# 0.05 X10^3/uL; Basophil% 1.1 % (0-1); Eosinophil# 0.11 X10^3/uL; Eosinophils% 2.5 % (0-5); Hematocrit 41.9 % (37-47); Hemoglobin 13.4 g/dL (12.0-15.0); Lymphocyte # 1.42 X10^3/ul (0.83-4.51); Lymphocyte % 32.6 % (19-41); Mean Platelet Vol. 9.5 fl (6.2-12.0); Monocyte% 9.2 % (0-10); NRBC Flagged by Analyzer 0 % (0-5); Neutrophil # 2.37 X10^3/uL (2.7-7.7); Neutrophil % 54.4 % (47-70); Platelet Count 275 K/mm3 (150-450); RBC Distribution Width CV 12.3 % (11.6-14.6); RBC Distribution Width SD 44.2 fl (35.1-43.9); Red Blood Count 4.32 M/mm3 (4.2-5.4); White Blood Count 4.4 K/mm3 (4.4-11.0)
== END | disposition home or self-care (01) ==
LOC: MTLAB 10:35
PROVIDERS: PCP Family Medicine; Referring Provider Internal Medicine Rheumatology; Visit Provider Internal Medicine Rheumatology
DX: M06.4 Inflammatory polyarthropathy (principal); M35.00 Sjogren syndrome, unspecified; M79.7 Fibromyalgia; M18.12 Unilateral primary osteoarthritis of first carpometacarpal joint, left hand; M19.041 Primary osteoarthritis, right hand; M17.0 Bilateral primary osteoarthritis of knee; Q66.71 Congenital pes cavus, right foot; I10 Essential (primary) hypertension; N20.0 Calculus of kidney; Z79.899 Other long term (current) drug therapy
CPT/HCPCS: 36415; 80053; 85025

== ENCOUNTER → 2023-07-30 | Outpatient (CLI) | payer MEDICARE, SELFPAY ==
[2023-07-30 10:51] LABS: Absolute Lymphocyte Count 1.44 X10^3/uL (0.83-4.51); Absolute Neutrophil Count 2.1 X10^3/uL (2.0-7.7); Basophil# 0.02 X10^3/uL; Basophil% 0.5 % (0-1); Eosinophil# 0.14 X10^3/uL; Eosinophils% 3.3 % (0-5); Hematocrit 38.1 % (37-47); Hemoglobin 11.9 g/dL (12.0-15.0); Lymphocyte # 1.44 X10^3/ul (0.83-4.51); Lymphocyte % 34.4 % (19-41); Mean Corp Hgb Conc 31.2 g/dL (32-36); Mean Corpuscular Hgb 30.3 pg (27.0-32.0); Mean Corpuscular Volume 96.9 fL (81-99); Mean Platelet Vol. 9.5 fl (6.2-12.0); Monocyte# 0.45 X10^3/uL; Monocyte% 10.8 % (0-10); NRBC Flagged by Analyzer 0 % (0-5); Neutrophil # 2.12 X10^3/uL (2.7-7.7); Neutrophil % 50.8 % (47-70); Platelet Count 281 K/mm3 (150-450); RBC Distribution Width CV 11.8 % (11.6-14.6); RBC Distribution Width SD 42.5 fl (35.1-43.9); Red Blood Count 3.93 M/mm3 (4.2-5.4); White Blood Count 4.2 K/mm3 (4.4-11.0)
--- OUTSIDE RECORDS SUMMARY | 2023-07-30 11:01 | XMS RPT_ITS | CCD ---
Author Name Unknown Address [address] [place] [address] Organization [facility] Care Team Providers Care Appliance Sales Associate Name Role Phone IZZY MORALES, DR DURAND Primary Care Physician ANAI MORALES, DR VENECIA ROBLEDO Attending Sunita MAGANA MD, DR DURAND Primary Care Unavailable ANAI MORALES, DR VENECIA ROBLEDO Attending Sunita MAGANA MD, DR DURAND Primary Care Unavailable Allergies Allergy Classification Reported Allergen(s) Allergy Type Date of Onset Reaction(s) Facility (2 sources) Lavender extract; Translations: [lavender] Allergy to substance unknown [facility] Medications Current Medications Medication Drug Class(es) Dates Sig (Normalized) Sig (Original) 8 hr acetaminophen 650 mg extended release oral tablet (2 sources) Start: 10-01-2022 Tylenol 8 Hour 650 mg oral tablet, extended release Dose : 1,300 mg = 2 tab(s), Oral, q8h, PRN as needed for pain Start Date: 10/01/22 Status: Ordered acetaminophen 325 mg / oxyCODONE hydrochloride 5 mg oral tablet (1 source) Opioid Agonist Start: 10-18-2022 End: 10-25-2022 take 1 tablet by mouth every four hours as needed for pain Endocet 5/325 oral tablet Dose = 1 tab(s), Oral, q4h, PRN for pain, X 7 day(s), # 12 tab(s), 0 Refill(s), Pharmacy: [id number], Calculi, ureter, 167.6, cm, 10/18/22 9:52:00 EDT, Height, 72.6 Start Date: 10/18/22 Stop Date: 10/25/22 Status: Ordered amitriptyline hydrochloride 150 mg oral tablet (2 sources) Tricyclic Antidepressant Start: 10-01-2022 amitriptyline 150 mg oral tablet Dose : 150 mg = 1 tab(s), Oral, qHS, 0 Refill(s) Start Date: 10/01/22 Status: Ordered cetirizine hydrochloride 10 mg oral tablet (1 source) Histamine-1 Receptor Antagonist Start: 10-18-2022 Zyrtec 10 mg oral tablet Dose : 10 mg = 1 tab(s), Oral, BID Start Date: 10/18/22 Status: Ordered ciprofloxacin 500 mg oral tablet (1 source) Quinolone Antimicrobial Start: 10-18-2022 End: 10-23-2022 Cipro 500 mg oral tablet Dose : 500 mg = 1 tab(s), Oral, q12h, X 5 day(s), # 10 tab(s), 0 Refill(s), 10/23/22 13:53:00 EDT, Pharmacy: [facility] #[id number], 167.6, cm, 10/18/22 9:52:00 EDT, Height, 72.6 Start Date: 10/18/22 Stop Date: 10/23/22 Status: Ordered doxepin hydrochloride 10 mg oral capsule (2 sources) Tricyclic Antidepressant Start: 10-01-2022 doxepin 10 mg oral capsule Dose : 10 mg = 1 cap(s), Oral, qDay Start Date: 10/01/22 Status: Ordered Multivitamin preparation (2 sources) Start: 10-01-2022 take 1 tablet by mouth once daily Multivitamin Dose = 1 tab(s), Oral, Daily, 0 Refill(s) Start Date: 10/01/22 Status: Ordered 24 hr propranolol hydrochloride 80 mg extended release oral capsule (2 sources) beta-Adrenergic Liliana Start: 10-01-2022 propranolol 80 mg oral capsule, extended release Dose : 80 mg = 1 cap(s), Oral, Daily, 0 Refill(s) Start Date: 10/01/22 Status: Ordered sulfaSALAzine 500 mg delayed release oral tablet (2 sources) Aminosalicylate Start: 10-01-2022 sulfaSALAzine 500 mg oral delayed release tablet Dose : 1,000 mg = 2 tab(s), Oral, BID Start Date: 10/01/22 Status: Ordered triamcinolone acetonide 1 mg/ml topical cream (2 sources) Corticosteroid Start: 10-01-2022 triamcinolone 0.1% topical cream Apply 1 magaly, Topical, Daily, Cream Start Date: 10/01/22 Status: Ordered Vitamin C 250 mg oral tablet (1 source) Start: 10-01-2022 Vitamin C 250 mg oral tablet Dose : 250 mg = 1 tab(s), Oral, qDay, # 30 tab(s), 0 Refill(s) Start Date: 10/01/22 Status: Ordered Problems Problem Classification Problem Date Documented Da te Episodic/Chronic Calculus of urinary tract (2 sources) Ureteric stone; Translations: [Calculus of ureter] Onset: 10-18-2022 Episodic Results Test Name Value Interpretation Reference Range Facil ity Vital Signs Date Time Vital Sign Value Performing Clinician Leslye lity 10-18-2022 15:25-0400 Diastolic Blood Pressure Non-Invasive [address] VENECIA OSPINA MD [facility] 10-18-2022 15:25-0400 Heart rate 63 /min DR VENECIA OSPINA MD [facility] 10-18-2022 15:25-0400 Respiratory rate 12 /min DR VENECIA OSPINA MD [facility] 10-18-2022 15:25-0400 Systolic Blood Pressure Non-Invasive [address] VENECIA OSPINA MD [facility] 10-18-2022 14:45-0400 Diastolic Blood Pressure Non-Invasive [address] VENECIA OSPINA MD [facility] 10-18-2022 14:45-0400 Heart rate 70 /min DR VENECIA OSPINA MD [facility] 10-18-2022 14:45-0400 Respiratory rate 12 /min DR VENECIA OSPINA MD [facility] 10-18-2022 14:45-0400 Systolic Blood Pressure Non-Invasive [address] VENECIA OSPINA MD [facility] 10-18-2022 14:30-0400 Diastolic Blood Pressure Non-Invasive [address] VENECIA OSPINA MD [facility] 10-18-2022 14:30-0400 Heart rate 71 /min DR VENECIA OSPINA MD [facility] 10-18-2022 14:30-0400 Respiratory rate 10 /min DR VENECIA OSPINA MD [facility] 10-18-2022 14:30-0400 Systolic Blood Pressure Non-Invasive [address] VENECIA OSPINA MD [facility] 10-18-2022 13:45-0400 Body temperature 97.16 [degF] DR VENECIA OSPINA MD [facility] 10-18-2022 13:40-0400 Respiratory Rate - Anes 13 br/min DR VENECIA OSPINA MD [facility] 10-18-2022 13:35-0400 Respiratory Rate - Anes 16 br/min DR VENECIA OSPINA MD [facility] 10-18-2022 13:30-0400 Respiratory Rate - Anes 15 br/min DR VENECIA OSPINA MD [facility] 10-18-2022 09:30-0400 Body height 167.[address] VENECIA OSPINA MD [facility] 10-18-2022 09:30-0400 Body temperature 98.42 [degF] DR VENECIA OSPINA MD [facility] 10-18-2022 09:30-0400 Body weight 72.[address] VENECIA OSPINA MD [facility] 10-18-2022 09:30-0400 Heart rate 69 /min DR VENECIA OSPINA MD [facility] 10-01-2022 11:140500 Body height 167.[address] VENECIA OSPINA MD [facility] 10-01-2022 11:140500 Body weight 72.[address] VENECIA OSPINA MD [facility] 10-01-2022 11:140500 Body weight 25.84 kg/m2 DR VENECIA OSPINA MD [facility] Encounters Encounter Date Encounter Type Care Provider Facility Start: 10-18-2022 End: 10-18-[address] VENECIA OSPINA MD Facility:[facility] Start: 10-18-2022 End: 10-18-[address] VENECIA OSPINA MD [facility] Start: 10-01-2022 End: 10-02-[address] VENECIA OSPINA MD Facility:[facility] Start: 10-01-2022 End: 10-01-[address] VENECIA OSPINA MD [facility] Procedures Date Procedure Procedure Detail Performing Clinician Start: 10-18-2022 Extracorporeal shock wave lithotripsy of ureter DR VENECIA OSPINA MD Payers Date Payer Category Payer Private Health Insurance [id number] 1955 Unknown [id number] 1955 Unknown [id number] Social History Date Type Detail Facility Start: 10-01-2022 Tobacco smoking status Never s moked tobacco (finding) [facility] Sex Assigned At Female [facility] Functional Status Date Assessment Result Facility 10-18-2022 Functional Status Awake, Up ad alina [facility] 10-18-2022 Functional Status [facility] 10-18-2022 Functional Status Precautions maintained [facility] 10-18-2022 Functional Status Maintained, More than 8 hours [facility] 10-01-2022 Functional Status Sensory Deficits None A [facility] Mental Status Date Assessment Result Facility 10-18-2022 Mental Status Orientation Oriented x 4 [facility] 10-18-2022 Mental Status [facility] Hospital Discharge instructions 10-18-2022 Note Date & Type Note Facility 10-18-2022 Hospital Discharg e instructions Patient Education 10/18/2022 13:55:55 Ureteral Stent Implantation, Care After Ureteral Stent Implantation, Care After This sheet gives you information about how to care for yourself after your procedure. Your health care provider may also give you more specific instructions. If you have problems or questions, contact your health care provider. What can I expect after the procedure? After the procedure, it is common to have: Nausea. Mild pain when you urinate. You may feel this pain in your lower back or lower abdomen. The pain should stop within a few minutes after you urinate. This may last for up to 1 week. A small amount of blood in your urine for several days. Follow these instructions at home: Medicines Take ghwe-kur-ctpxviv and prescription medicines only as told by your health care provider. If you were prescribed an antibiotic medicine, take it as told by your health care provider. Do not stop taking the antibiotic even if you start to feel better. Do not drive for 24 hours if you were given a sedative during your procedure. Ask your health care provider if the medicine prescribed to you requires you to avoid driving or using heavy machinery. Activity Rest as told by your health care provider. Avoid sitting for a long time without moving. Get up to take short walks every 1 2 hours. This is important to improve blood flow and breathing. Ask for help if you feel weak or unsteady. Return to your normal activities as told by your health care provider. Ask your health care provider what activities are safe for you. General instructions Watch for any blood in your urine. Call your health care provider if the amount of blood in your urine increases. If you have a catheter: ?Follow instructions from your health care provider about taking care of your catheter and collection bag. ?Do not take baths, swim, or use a hot tub until your health care provider approves. Ask your health care provider if you may take showers. You may only be allowed to take sponge baths. Drink enough fluid to keep your urine pale yellow. Do not use any products that contain nicotine or tobacco, such as cigarettes, e-cigarettes, and chewing tobacco. These can delay healing after surgery. If you need help quitting, ask your health care provider. Keep all follow-up visits as told by your health care provider. This is important. Contact a health care provider if: You have pain that gets worse or does not get better with medicine, especially pain when you urinate. You have difficulty urinating. You feel nauseous or you vomit repeatedly during a period of more than 2 days after the procedure. Get help right away if: Your urine is dark red or has blood clots in it. You are leaking urine (have incontinence). The end of the stent comes out of your urethra. You cannot urinate. You have sudden, sharp, or severe pain in your abdomen or lower back. You have a fever. You have swelling or pain in your legs. You have difficulty breathing. Summary After the procedure, it is common to have mild pain when you urinate that goes away within a few minutes after you urinate. This may last for up to 1 week. Watch for any blood in your urine. Call your health care provider if the amount of blood in your urine increases. Take seii-hug-dmfkqmi and prescription medicines only as told by your health care provider. Drink enough fluid to keep your urine pale yellow. This information is not intended to replace advice given to you by your health care provider. Make sure you discuss any questions you have with your health care provider. Document Released: 03/16/2014 Document Revised: 04/20/2019 Document Reviewed: 04/21/2019 [email or web address] Patient Education 2020 [employer]. 10/18/2022 13:55:46 1-SDS URO Cystoscopy (04/2022)(CUSTOM) YOU HAVE BEEN SCHEDULED FOR OFFICE CYSTOSCOPY DESCRIPTION OF CYSTOSCOPY: Cystoscopy is a procedure that is used to visually inspect the bladder and the urethra using a small telescope. This can be done in most cases with minimal discomfort using a local anesthetic jelly. The end of the urinary channel (urethra) will be cleaned and a local anesthetic placed into the bladder. The entire exam takes less than 10 minutes. POSSIBLE RISKS WITH CYSTOSCOPY: Burning with urination or blood in the urine may occur that should subside within a day of the procedure. Should you develop persistent symptoms of burning with urination, blood in the urine, frequent urination, fever, or chills please contact our office immediately at [phone], Option 1 for the nurse line. POST CYSTOSCOPY: After the cystoscopy, you might experience mild discomfort with the first little urination and possibly experience some blood in the urine. You should increase your water intake for the next 1-2 days following the procedure. You will also get a prescription of antibiotics to take following the procedure. 10/18/2022 13:55:38 Lithotripsy, Care After Lithotripsy, Care After This sheet gives you information about how to care for yourself after your procedure. Your health care provider may also give you more specific instructions. If you have problems or questions, contact your health care provider. What can I expect after the procedure? After the procedure, it is common to have: Some blood in your urine. This should only last for a few days. Soreness in your back, sides, or upper abdomen for a few days. Blotches or bruises on your back where the pressure wave entered the skin. Pain, discomfort, or nausea when pieces (fragments) of the kidney stone move through the tube that carries urine from the kidney to the bladder (ureter). Stone fragments may pass soon after the procedure, but they may continue to pass for up to 4 8 weeks. ?If you have severe pain or nausea, contact your health care provider. This may be caused by a large stone that was not broken up, and this may mean that you need more treatment. Some pain or discomfort during urination. Some pain or discomfort in the lower abdomen or (in men) at the base of the penis. Follow these instructions at home: Medicines Take mnvb-tkv-hluggsd and prescription medicines only as told by your health care provider. If you were prescribed an antibiotic medicine, take it as told by your health care provider. Do not stop taking the antibiotic even if you start to feel better. Do not drive for 24 hours if you were given a medicine to help you relax (sedative). Do not drive or use heavy machinery while taking prescription pain medicine. Eating and drinking Drink enough water and fluids to keep your urine clear or pale yellow. This helps any remaining pieces of the stone to pass. It can also help prevent new stones from forming. Eat plenty of fresh fruits and vegetables. Follow instructions from your health care provider about eating and drinking restrictions. You may be instructed: ?To reduce how much salt (sodium) you eat or drink. Check ingredients and nutrition facts on packaged foods and beverages. ?To reduce how much meat you eat. Eat the recommended amount of calcium for your age and gender. Ask your health care provider how much calcium you should have. General instructions Get plenty of rest. Most people can resume normal activities 1 2 days after the procedure. Ask your health care provider what activities are safe for you. Your health care provider may direct you to lie in a certain position (postural drainage) and tap firmly (percuss) over your kidney area to help stone fragments pass. Follow instructions as told by your health care provider. If directed, strain all urine through the strainer that was provided by your health care provider. ?Keep all fragments for your health care provider to see. Any stones that are found may be sent to a medical lab for examination. The stone may be as small as a grain of salt. Keep all follow-up visits as told by your health care provider. This is important. Contact a health care provider if: You have pain that is severe or does not get better with medicine. You have nausea that is severe or does not go away. You have blood in your urine longer than your health care provider told you to expect. You have more blood in your urine. You have pain during urination that does not go away. You urinate more frequently than usual and this does not go away. You develop a rash or any other possible signs of an allergic reaction. Get help right away if: You have severe pain in your back, sides, or upper abdomen. You have severe pain while urinating. Your urine is very dark red. You have blood in your stool (feces). You cannot pass any urine at all. You feel a strong urge to urinate after emptying your bladder. You have a fever or chills. You develop shortness of breath, difficulty breathing, or chest pain. You have severe nausea that leads to persistent vomiting. You faint. Summary After this procedure, it is common to have some pain, discomfort, or nausea when pieces (fragments) of the kidney stone move through the tube that carries urine from the kidney to the bladder (ureter). If this pain or nausea is severe, however, you should contact your health care provider. Most people can resume normal activities 1 2 days after the procedure. Ask your health care provider what activities are safe for you. Drink enough water and fluids to keep your urine clear or pale yellow. This helps any remaining pieces of the stone to pass, and it can help prevent new stones from forming. If directed, strain your urine and keep all fragments for your health care provider to see. Fragments or stones may be as small as a grain of salt. Get help right away if you have severe pain in your back, sides, or upper abdomen or have severe pain while urinating. This information is not intended to replace advice given to you by your health care provider. Make sure you discuss any questions you have with your health care provider. Document Released: 08/02/2008 Document Revised: 10/25/2019 Document Reviewed: 06/04/2017 [email or web address] Patient Education 2020 [employer]. 10/18/2022 13:55:32 Lithotripsy, Care After Lithotripsy, Care After This sheet gives you information about how to care for yourself after your procedure. Your health care provider may also give you more specific instructions. If you have problems or questions, contact your health care provider. What can I expect after the procedure? After the procedure, it is common to have: Some blood in your urine. This should only last for a few days. Soreness in your back, sides, or upper abdomen for a few days. Blotches or bruises on your back where the pressure wave entered the skin. Pain, discomfort, or nausea when pieces (fragments) of the kidney stone move through the tube that carries urine from the kidney to the bladder (ureter). Stone fragments may pass soon after the procedure, but they may continue to pass for up to 4 8 weeks. ?If you have severe pain or nausea, contact your health care provider. This may be caused by a large stone that was not broken up, and this may mean that you need more treatment. Some pain or discomfort during urination. Some pain or discomfort in the lower abdomen or (in men) at the base of the penis. Follow these instructions at home: Medicines Take elxf-okf-omicbww and prescription medicines only as told by your health care provider. If you were prescribed an antibiotic medicine, take it as told by your health care provider. Do not stop taking the antibiotic even if you start to feel better. Do not drive for 24 hours if you were given a medicine to help you relax (sedative). Do not drive or use heavy machinery while taking prescription pain medicine. Eating and drinking Drink enough water and fluids to keep your urine clear or pale yellow. This helps any remaining pieces of the stone to pass. It can also help prevent new stones from forming. Eat plenty of fresh fruits and vegetables. Follow instructions from your health care provider about eating and drinking restrictions. You may be instructed: ?To reduce how much salt (sodium) you eat or drink. Check ingredients and nutrition facts on packaged foods and beverages. ?To reduce how much meat you eat. Eat the recommended amount of calcium for your age and gender. Ask your health care provider how much calcium you should have. General instructions Get plenty of rest. Most people can resume normal activities 1 2 days after the procedure. Ask your health care provider what activities are safe for you. Your health care provider may direct you to lie in a certain position (postural drainage) and tap firmly (percuss) over your kidney area to help stone fragments pass. Follow instructions as told by your health care provider. If directed, strain all urine through the strainer that was provided by your health care provider. ?Keep all fragments for your health care provider to see. Any stones that are found may be sent to a medical lab for examination. The stone may be as small as a grain of salt. Keep all follow-up visits as told by your health care provider. This is important. Contact a health care provider if: You have pain that is severe or does not get better with medicine. You have nausea that is severe or does not go away. You have blood in your urine longer than your health care provider told you to expect. You have more blood in your urine. You have pain during urination that does not go away. You urinate more frequently than usual and this does not go away. You develop a rash or any other possible signs of an allergic reaction. Get help right away if: You have severe pain in your back, sides, or upper abdomen. You have severe pain while urinating. Your urine is very dark red. You have blood in your stool (feces). You cannot pass any urine at all. You feel a strong urge to urinate after emptying your bladder. You have a fever or chills. You develop shortness of breath, difficulty breathing, or chest pain. You have severe nausea that leads to persistent vomiting. You faint. Summary After this procedure, it is common to have some pain, discomfort, or nausea when pieces (fragments) of the kidney stone move through the tube that carries urine from the kidney to the bladder (ureter). If this pain or nausea is severe, however, you should contact your health care provider. Most people can resume normal activities 1 2 days after the procedure. Ask your health care provider what activities are safe for you. Drink enough water and fluids to keep your urine clear or pale yellow. This helps any remaining pieces of the stone to pass, and it can help prevent new stones from forming. If directed, strain your urine and keep all fragments for your health care provider to see. Fragments or stones may be as small as a grain of salt. Get help right away if you have severe pain in your back, sides, or upper abdomen or have severe pain while urinating. This information is not intended to replace advice given to you by your health care provider. Make sure you discuss any questions you have with your health care provider. Document Released: 08/02/2008 Document Revised: 10/25/2019 Document Reviewed: 06/04/2017 [email or web address] Patient Education 2020 [employer]. 10/18/2022 13:55:31 General Anesthesia, Adult, Care After General Anesthesia, Adult, Care After This sheet gives you information about how to care for yourself after your procedure. Your health care provider may also give you more specific instructions. If you have problems or questions, contact your health care provider. What can I expect after the procedure? After the procedure, the following side effects are common: Pain or discomfort at the IV site. Nausea. Vomiting. Sore throat. Trouble concentrating. Feeling cold or chills. Weak or tired. Sleepiness and fatigue. Soreness and body aches. These side effects can affect parts of the body that were not involved in surgery. Follow these instructions at home: For at least 24 hours after the procedure: Have a responsible adult stay with you. It is important to have someone help care for you until you are awake and alert. Rest as needed. Do not: ?Participate in activities in which you could fall or become injured. ?Drive. ?Use heavy machinery. ?Drink alcohol. ?Take sleeping pills or medicines that cause drowsiness. ?Make important decisions or sign legal documents. ?Take care of children on your own. Eating and drinking Follow any instructions from your health care provider about eating or drinking restrictions. When you feel hungry, start by eating small amounts of foods that are soft and easy to digest (bland), such as toast. Gradually return to your regular diet. Drink enough fluid to keep your urine pale yellow. If you vomit, rehydrate by drinking water, juice, or clear broth. General instructions If you have sleep apnea, surgery and certain medicines can increase your risk for breathing problems. Follow instructions from your health care provider about wearing your sleep device: ?Anytime you are sleeping, including during daytime naps. ?While taking prescription pain medicines, sleeping medicines, or medicines that make you drowsy. Return to your normal activities as told by your health care provider. Ask your health care provider what activities are safe for you. Take pygb-crk-bqdlyvr and prescription medicines only as told by your health care provider. If you smoke, do not smoke without supervision. Keep all follow-up visits as told by your health care provider. This is important. Contact a health care provider if: You have nausea or vomiting that does not get better with medicine. You cannot eat or drink without vomiting. You have pain that does not get better with medicine. You are unable to pass urine. You develop a skin rash. You have a fever. You have redness around your IV site that gets worse. Get help right away if: You have difficulty breathing. You have chest pain. You have blood in your urine or stool, or you vomit blood. Summary After the procedure, it is common to have a sore throat or nausea. It is also common to feel tired. Have a responsible adult stay with you for the first 24 hours after general anesthesia. It is important to have someone help care for you until you are awake and alert. When you feel hungry, start by eating small amounts of foods that are soft and easy to digest (bland), such as toast. Gradually return to your regular diet. Drink enough fluid to keep your urine pale yellow. Return to your normal activities as told by your health care provider. Ask your health care provider what activities are safe for you. This information is not intended to replace advice given to you by your health care provider. Make sure you discuss any questions you have with your health care provider. Document Released: 10/20/2001 Document Revised: 07/17/2018 Document Reviewed: 02/27/2018 [email or web address] Patient Education 2020 [employer]. Follow Up Care 09/25/2022 07:43:52 With:VENECIA OSPINA MD, [facility] Address: [address] [place] [id number] [phone] When: Unknown [facility] Summary of episode note 10-18-2022 Note Date & Type Note Facility 10-18-2022 Summary of episode note Discharge Instructions Thank you for allowing [facility] to assist you with your healthcare needs. The following is important discharge information regarding your hospital visit. Your Care Team KIZZY MAGANA MD Your Diagnosis Ureteral calculi, Calculi, ureter What to do next Instructions From Your Doctor Push fluids, normal to have blood in the urine, have normal to have some pain or discomfort in the right kidney with urination and also frequency and urgency take antibiotics to prevent infection, can take pain medicine as necessary, can also take xpur-ajc-vxoychm Azo for bladder which helps with stent pain. Call my office for an appointment next week to have the stent removed in the office Follow Up Appointments Follow Up with VENECIA OSPINA MD, [facility] When Where: [address] [place] [phone] The Following Activity and Diet Have Been Ordered for You Discharge Activity - Ordered -- Follow the post-operative/post-procedure activity instructions provided by your physician's office., 10/18/22 13:54:00 EDT Discharge Driving Restrictions - Ordered -- No driving until pain-free, 10/18/22 13:54:00 EDT Discharge Return to Work, School, or Sports (Discharge Return to status) - Ordered -- May return to: work, 10/18/22 13:54:00 EDT Discharge Diet - Ordered -- Follow the post-operative/post-procedure diet instructions provided by your physician's office., 10/18/22 13:54:00 EDT Allergies lavender (unknown) Medications Please ask your primary doctor or pharmacist before taking any other medication not listed, including over the counter drugs, herbal medications, vitamins and or supplements as they may interact with your home medications. What How Much When Why Instructions Last Dose New acetaminophen-oxyCODONE (Endocet 5/ 325 oral tablet) 1 tab(s) by mouth Every 4 hours as needed for for pain Calculi, ureter Duration: 7 Days Pickup at [facility] New ciprofloxacin (Cipro 500 mg oral tablet) 1 tab(s) by mouth Every 12 hours Duration: 5 Days Pickup at [facility] Unchanged acetaminophen (Tylenol 8 Hour 650 mg oral tablet, extended release) 2 tab(s) by mouth Every 8 hours as needed for as needed for pain Unchanged amitriptyline (amitriptyline 150 mg oral tablet) 1 tab(s) by mouth Daily at bedtime Unchanged cetirizine (Zyrtec 10 mg oral tablet) 1 tab(s) by mouth Two (2) times a day Unchanged doxepin (doxepin 10 mg oral capsule) 1 cap by mouth Once a day Unchanged multivitamin (Multivitamin) 1 tab(s) by mouth Every day Unchanged propranolol (propranolol 80 mg oral capsule, extended release) 1 cap by mouth Every day Unchanged sulfaSALAzine (sulfaSALAzine 500 mg oral delayed release tablet) 2 tab(s) by mouth Two (2) times a day Unchanged triamcinolone topical (triamcinolone 0.1% topical cream) 1 application Topical Every day Pharmacy Information [facility]: [address] [place], [place] [phone] Please take this list to your next doctor s visit. Bring all medications you take, including over the counter medications, herbals and other supplements with you to your doctor s visit. Patients and families are reminded to discard old lists and to update any records with all medication providers or retail pharmacies. Education Materials Ureteral Stent Implantation, Care After This sheet gives you information about how to care for yourself after your procedure. Your health care provider may also give you more specific instructions. If you have problems or questions, contact your health care provider. What can I expect after the procedure? After the procedure, it is common to have: Nausea. Mild pain when you urinate. You may feel this pain in your lower back or lower abdomen. The pain should stop within a few minutes after you urinate. This may last for up to 1 week. A small amount of blood in your urine for several days. Follow these instructions at home: Medicines Take cdob-xgt-snhaavr and prescription medicines only as told by your health care provider. If you were prescribed an antibiotic medicine, take it as told by your health care provider. Do not stop taking the antibiotic even if you start to feel better. Do not drive for 24 hours if you were given a sedative during your procedure. Ask your health care provider if the medicine prescribed to you requires you to avoid driving or using heavy machinery. Activity Rest as told by your health care provider. Avoid sitting for a long time without moving. Get up to take short walks every 1 2 hours. This is important to improve blood flow and breathing. Ask for help if you feel weak or unsteady. Return to your normal activities as told by your health care provider. Ask your health care provider what activities are safe for you. General instructions Watch for any blood in your urine. Call your health care provider if the amount of blood in your urine increases. If you have a catheter: ? Follow instructions from your health care provider about taking care of your catheter and collection bag. ? Do not take baths, swim, or use a hot tub until your health care provider approves. Ask your health care provider if you may take showers. You may only be allowed to take sponge baths. Drink enough fluid to keep your urine pale yellow. Do not use any products that contain nicotine or tobacco, such as cigarettes, e-cigarettes, and chewing tobacco. These can delay healing after surgery. If you need help quitting, ask your health care provider. Keep all follow-up visits as told by your health care provider. This is important. Contact a health care provider if: You have pain that gets worse or does not get better with medicine, especially pain when you urinate. You have difficulty urinating. You feel nauseous or you vomit repeatedly during a period of more than 2 days after the procedure. Get help right away if: Your urine is dark red or has blood clots in it. You are leaking urine (have incontinence). The end of the stent comes out of your urethra. You cannot urinate. You have sudden, sharp, or severe pain in your abdomen or lower back. You have a fever. You have swelling or pain in your legs. You have difficulty breathing. Summary After the procedure, it is common to have mild pain when you urinate that goes away within a few minutes after you urinate. This may last for up to 1 week. Watch for any blood in your urine. Call your health care provider if the amount of blood in your urine increases. Take cfrf-ifc-rtxepyu and prescription medicines only as told by your health care provider. Drink enough fluid to keep your urine pale yellow. This information is not intended to replace advice given to you by your health care provider. Make sure you discuss any questions you have with your health care provider. Document Released: 03/16/2014 Document Revised: 04/20/2019 Document Reviewed: 04/21/2019 [email or web address] Patient Education 2020 [employer]. YOU HAVE BEEN SCHEDULED FOR OFFICE CYSTOSCOPY DESCRIPTION OF CYSTOSCOPY: Cystoscopy is a procedure that is used to visually inspect the bladder and the urethra using a small telescope. This can be done in most cases with minimal discomfort using a local anesthetic jelly. The end of the urinary channel (urethra) will be cleaned and a local anesthetic placed into the bladder. The entire exam takes less than 10 minutes. POSSIBLE RISKS WITH CYSTOSCOPY: Burning with urination or blood in the urine may occur that should subside within a day of the procedure. Should you develop persistent symptoms of burning with urination, blood in the urine, frequent urination, fever, or chills please contact our office immediately at [phone], Option 1 for the nurse line. POST CYSTOSCOPY: After the cystoscopy, you might experience mild discomfort with the first little urination and possibly experience some blood in the urine. You should increase your water intake for the next 1-2 days following the procedure. You will also get a prescription of antibiotics to take following the procedure. Lithotripsy, Care After This sheet gives you information about how to care for yourself after your procedure. Your health care provider may also give you more specific instructions. If you have problems or questions, contact your health care provider. What can I expect after the procedure? After the procedure, it is common to have: Some blood in your urine. This should only last for a few days. Soreness in your back, sides, or upper abdomen for a few days. Blotches or bruises on your back where the pressure wave entered the skin. Pain, discomfort, or nausea when pieces (fragments) of the kidney stone move through the tube that carries urine from the kidney to the bladder (ureter). Stone fragments may pass soon after the procedure, but they may continue to pass for up to 4 8 weeks. ? If you have severe pain or nausea, contact your health care provider. This may be caused by a large stone that was not broken up, and this may mean that you need more treatment. Some pain or discomfort during urination. Some pain or discomfort in the lower abdomen or (in men) at the base of the penis. Follow these instructions at home: Medicines Take hqef-lcu-kutggye and prescription medicines only as told by your health care provider. If you were prescribed an antibiotic medicine, take it as told by your health care provider. Do not stop taking the antibiotic even if you start to feel better. Do not drive for 24 hours if you were given a medicine to help you relax (sedative). Do not drive or use heavy machinery while taking prescription pain medicine. Eating and drinking Drink enough water and fluids to keep your urine clear or pale yellow. This helps any remaining pieces of the stone to pass. It can also help prevent new stones from forming. Eat plenty of fresh fruits and vegetables. Follow instructions from your health care provider about eating and drinking restrictions. You may be instructed: ? To reduce how much salt (sodium) you eat or drink. Check ingredients and nutrition facts on packaged foods and beverages. ? To reduce how much meat you eat. Eat the recommended amount of calcium for your age and gender. Ask your health care provider how much calcium you should have. General instructions Get plenty of rest. Most people can resume normal activities 1 2 days after the procedure. Ask your health care provider what activities are safe for you. Your health care provider may direct you to lie in a certain position (postural drainage) and tap firmly (percuss) over your kidney area to help stone fragments pass. Follow instructions as told by your health care provider. If directed, strain all urine through the strainer that was provided by your health care provider. ? Keep all fragments for your health care provider to see. Any stones that are found may be sent to a medical lab for examination. The stone may be as small as a grain of salt. Keep all follow-up visits as told by your health care provider. This is important. Contact a health care provider if: You have pain that is severe or does not get better with medicine. You have nausea that is severe or does not go away. You have blood in your urine longer than your health care provider told you to expect. You have more blood in your urine. You have pain during urination that does not go away. You urinate more frequently than usual and this does not go away. You develop a rash or any other possible signs of an allergic reaction. Get help right away if: You have severe pain in your back, sides, or upper abdomen. You have severe pain while urinating. Your urine is very dark red. You have blood in your stool (feces). You cannot pass any urine at all. You feel a strong urge to urinate after emptying your bladder. You have a fever or chills. You develop shortness of breath, difficulty breathing, or chest pain. You have severe nausea that leads to persistent vomiting. You faint. Summary After this procedure, it is common to have some pain, discomfort, or nausea when pieces (fragments) of the kidney stone move through the tube that carries urine from the kidney to the bladder (ureter). If this pain or nausea is severe, however, you should contact your health care provider. Most people can resume normal activities 1 2 days after the procedure. Ask your health care provider what activities are safe for you. Drink enough water and fluids to keep your urine clear or pale yellow. This helps any remaining pieces of the stone to pass, and it can help prevent new stones from forming. If directed, strain your urine and keep all fragments for your health care provider to see. Fragments or stones may be as small as a grain of salt. Get help right away if you have severe pain in your back, sides, or upper abdomen or have severe pain while urinating. This information is not intended to replace advice given to you by your health care provider. Make sure you discuss any questions you have with your health care provider. Document Released: 08/02/2008 Document Revised: 10/25/2019 Document Reviewed: 06/04/2017 Elsevier Patient Education 2020 [email or web address] Lithotripsy, Care After This sheet gives you information about how to care for yourself after your procedure. Your health care provider may also give you more specific instructions. If you have problems or questions, contact your health care provider. What can I expect after the procedure? After the procedure, it is common to have: Some blood in your urine. This should only last for a few days. Soreness in your back, sides, or upper abdomen for a few days. Blotches or bruises on your back where the pressure wave entered the skin. Pain, discomfort, or nausea when pieces (fragments) of the kidney stone move through the tube that carries urine from the kidney to the bladder (ureter). Stone fragments may pass soon after the procedure, but they may continue to pass for up to 4 8 weeks. ? If you have severe pain or nausea, contact your health care provider. This may be caused by a large stone that was not broken up, and this may mean that you need more treatment. Some pain or discomfort during urination. Some pain or discomfort in the lower abdomen or (in men) at the base of the penis. Follow these instructions at home: Medicines Take wmwa-mpe-xzvhkvz and prescription medicines only as told by your health care provider. If you were prescribed an antibiotic medicine, take it as told by your health care provider. Do not stop taking the antibiotic even if you start to feel better. Do not drive for 24 hours if you were given a medicine to help you relax (sedative). Do not drive or use heavy machinery while taking prescription pain medicine. Eating and drinking Drink enough water and fluids to keep your urine clear or pale yellow. This helps any remaining pieces of the stone to pass. It can also help prevent new stones from forming. Eat plenty of fresh fruits and vegetables. Follow instructions from your health care provider about eating and drinking restrictions. You may be instructed: ? To reduce how much salt (sodium) you eat or drink. Check ingredients and nutrition facts on packaged foods and beverages. ? To reduce how much meat you eat. Eat the recommended amount of calcium for your age and gender. Ask your health care provider how much calcium you should have. General instructions Get plenty of rest. Most people can resume normal activities 1 2 days after the procedure. Ask your health care provider what activities are safe for you. Your health care provider may direct you to lie in a certain position (postural drainage) and tap firmly (percuss) over your kidney area to help stone fragments pass. Follow instructions as told by your health care provider. If directed, strain all urine through the strainer that was provided by your health care provider. ? Keep all fragments for your health care provider to see. Any stones that are found may be sent to a medical lab for examination. The stone may be as small as a grain of salt. Keep all follow-up visits as told by your health care provider. This is important. Contact a health care provider if: You have pain that is severe or does not get better with medicine. You have nausea that is severe or does not go away. You have blood in your urine longer than your health care provider told you to expect. You have more blood in your urine. You have pain during urination that does not go away. You urinate more frequently than usual and this does not go away. You develop a rash or any other possible signs of an allergic reaction. Get help right away if: You have severe pain in your back, sides, or upper abdomen. You have severe pain while urinating. Your urine is very dark red. You have blood in your stool (feces). You cannot pass any urine at all. You feel a strong urge to urinate after emptying your bladder. You have a fever or chills. You develop shortness of breath, difficulty breathing, or chest pain. You have severe nausea that leads to persistent vomiting. You faint. Summary After this procedure, it is common to have some pain, discomfort, or nausea when pieces (fragments) of the kidney stone move through the tube that carries urine from the kidney to the bladder (ureter). If this pain or nausea is severe, however, you should contact your health care provider. Most people can resume normal activities 1 2 days after the procedure. Ask your health care provider what activities are safe for you. Drink enough water and fluids to keep your urine clear or pale yellow. This helps any remaining pieces of the stone to pass, and it can help prevent new stones from forming. If directed, strain your urine and keep all fragments for your health care provider to see. Fragments or stones may be as small as a grain of salt. Get help right away if you have severe pain in your back, sides, or upper abdomen or have severe pain while urinating. This information is not intended to replace advice given to you by your health care provider. Make sure you discuss any questions you have with your health care provider. Document Released: 08/02/2008 Document Revised: 10/25/2019 Document Reviewed: 06/04/2017 [employer] Patient Education 2020 [email or web address] General Anesthesia, Adult, Care After This sheet gives you information about how to care for yourself after your procedure. Your health care provider may also give you more specific instructions. If you have problems or questions, contact your health care provider. What can I expect after the procedure? After the procedure, the following side effects are common: Pain or discomfort at the IV site. Nausea. Vomiting. Sore throat. Trouble concentrating. Feeling cold or chills. Weak or tired. Sleepiness and fatigue. Soreness and body aches. These side effects can affect parts of the body that were not involved in surgery. Follow these instructions at home: For at least 24 hours after the procedure: Have a responsible adult stay with you. It is important to have someone help care for you until you are awake and alert. Rest as needed. Do not: ? Participate in activities in which you could fall or become injured. ? Drive. ? Use heavy machinery. ? Drink alcohol. ? Take sleeping pills or medicines that cause drowsiness. ? Make important decisions or sign legal documents. ? Take care of children on your own. Eating and drinking Follow any instructions from your health care provider about eating or drinking restrictions. When you feel hungry, start by eating small amounts of foods that are soft and easy to digest (bland), such as toast. Gradually return to your regular diet. Drink enough fluid to keep your urine pale yellow. If you vomit, rehydrate by drinking water, juice, or clear broth. General instructions If you have sleep apnea, surgery and certain medicines can increase your risk for breathing problems. Follow instructions from your health care provider about wearing your sleep device: ? Anytime you are sleeping, including during daytime naps. ? While taking prescription pain medicines, sleeping medicines, or medicines that make you drowsy. Return to your normal activities as told by your health care provider. Ask your health care provider what activities are safe for you. Take enmj-byx-wvucbuq and prescription medicines only as told by your health care provider. If you smoke, do not smoke without supervision. Keep all follow-up visits as told by your health care provider. This is important. Contact a health care provider if: You have nausea or vomiting that does not get better with medicine. You cannot eat or drink without vomiting. You have pain that does not get better with medicine. You are unable to pass urine. You develop a skin rash. You have a fever. You have redness around your IV site that gets worse. Get help right away if: You have difficulty breathing. You have chest pain. You have blood in your urine or stool, or you vomit blood. Summary After the procedure, it is common to have a sore throat or nausea. It is also common to feel tired. Have a responsible adult stay with you for the first 24 hours after general anesthesia. It is important to have someone help care for you until you are awake and alert. When you feel hungry, start by eating small amounts of foods that are soft and easy to digest (bland), such as toast. Gradually return to your regular diet. Drink enough fluid to keep your urine pale yellow. Return to your normal activities as told by your health care provider. Ask your health care provider what activities are safe for you. This information is not intended to replace advice given to you by your health care provider. Make sure you discuss any questions you have with your health care provider. Document Released: 10/20/2001 Document Revised: 07/17/2018 Document Reviewed: 02/27/2018 [email or web address] Patient Education 2020 [employer]. Additional Information VACCINATE! IT SAVES LIVES! Members of the community who have not yet received the COVID-19 vaccine and would like to receive it can visit one of [facility] vaccine clinics. There are many vaccine clinic locations within the [facility]. For locations and available times, please visit [email or web address].coronavirus.mii o.gov/. It is important to note that some COVID mobile vaccine clinics are held outdoors and may be canceled in rainy or stormy conditions. To learn more about pediatric vaccinations (ages 5-11), we invite you to visit the [facility] webpage. https://www.[facility].org/pag es/0126-Vfzcs-Hvnenpzpipp-Frequent ai-Uspee-Jjadziuph.html To learn more about the COVID-19 vaccine, we invite you to visit the CDC website for a list of frequently asked questions. https://www.cdc.gov/coronavirus/ 19-ncov/vaccines/faq.html [facility] Patient Portal Access Instructions: Stay connected with your healthcare team and access your personal medical information anytime with the [facility] Patient Portal.If you would like a full copy of your medical records, please contact the [facility] Medical Records Department, Friday through Friday between 8a.m. and 4:30p.m. Please follow the directions below to access the portal: 1.Access the email account you provided upon registration to the hospital.2.Look for an invitation email from [facility].3.Open the email and access the invitation link: Accept Invitation to [employer]4.Fill in the required carr to create your account. Sign into [email or web address] with your username and password that you created in the above steps to stay up to date. You can then view a summary of results, a summary of your visits, and the ability to download your summaries to your computer or send the information securely to a physician. Remember that your healthcare information is confidential, so carefully consider who you will allow to register on the [employer] Patient Portal for access to your information. You can also access the [employer] Patient Portal on the [employer]. Simply click on Health Records under Health Data and then click on the [employer] logo. HOW TO SAFELY DISPOSE OF PRESCRIPTION MEDICATIONS Please use one of the following methods to safely dispose of your unused medications. 1.Use a drug disposal kit: the drug disposal pouch allows you to safely discard your old and unused drugs. Ask your nurse to give you one when you are discharged.2.Visit a local take-back location: Many local pharmacies and police departments have programs that collect old and unwanted prescription drugs. Call your local pharmacy or go to http://ClipCard.Znode/5Y8Il8f to find one close to you.3.Make use of household items: Use cat litter or old coffee grounds to dispose medications if other options are not available. Mix your drugs with these household products, seal them in an airtight container and throw it into the garbage. Call [facility]: [phone] to be sure your drugs can be disposed of in this way. Some medicines may require a different approach.4.Never flush your medications down the toilet. IF YOU HAVE BEEN PRESCRIBED AN OPIOID FOR PAIN If you have been prescribed an opioid (such as hydrocodone, oxycodone or morphine), it is critical to understand the possible side effects and risks of opioid pain medications. Even when taken as directed, opioids can have several side effects including: Tolerance, meaning you might need to take more of a medication for the same pain relief. Nausea, vomiting and/or constipation. Sleepiness, dizziness, dry mouth, confusion, depression or itching. Physical dependence, meaning you have withdrawal symptoms when a medication is stopped, can develop within a few days. KNOW YOUR RESPONSIBILITIES It is important to know exactly how much and how often to take the opioid pain medications you are prescribed. Never take opioids in higher amounts or more often than prescribed. Do not combine opioids with alcohol or other drugs that cause drowsiness, such as benzodiazepines, also known as benzos, including diazepam and alprazolam, muscle relaxants or sleep aids. Never sell or share prescription opioids. This is illegal. Store opioids in a secure place and out of reach of others (including children, family, friends and visitors). The last page of this document has been signed and retained as a CHART COPY. Signatures Patient Education Materials Ureteral Stent Implantation, Care After 1-SDS URO Cystoscopy (04/2022)(CUSTOM) Lithotripsy, Care After Lithotripsy, Care After General Anesthesia, Adult, Care After Medication Leaflets My discharge plan and instructions have been reviewed and explained to me and NICHOLAS Armstrong SUZANNE M understand my current condition and have read and understand these discharge instructions. I have received a written copy of the plan/instructions. If I have questions, I am aware that I should contact my doctor. 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 History and Physical This is a 67-year-old female she has a mid ureteral calculus 9 mm in size underwent cystoscopy and stent placement she now presents for treatment of the stone with shockwave lithotripsy the patient was seen in the preoperative area and I spoke to the patient and her let her know that is possible she may need more than 1 treatment she understands she will find another stent and she also knows is possible she may have to pass some fragments. After reviewing treatment with the patient there is no guarantees of success she understands is always possible she may need more than 1 procedure and gender central stimulant meals still need a stent afterwards she agreed and signed the consent form. Digitally Signed by VENECIA OSPINA MD on 10/18/2022 01:47 PM [facility] Anesthesiology Consult note 10-18-2022 Note Date & Type Note Facility 10-18-2022 Anesthesiology Consult note Patient: MARNI PETERSON Age: 67 years Sex: Female : 1955 Associated Diagnoses: None Author: ALESSANDRA DAMON APRN-[facility] Preoperative Information Anesthesia history Patient's history: negative. Family's history: negative. Health Status Allergies: Allergic Reactions (Selected) Severity Not Documented Lavender- Unknown., Allergies (1) ActiveReaction lavenderunknown Current medications: (Selected) Inpatient Medications Ordered Kefzol: 2 gram(s), 200 mL/hr, IV Piggyback, PREOP pharm NS 1,000 mL: 75 mL/hr, Intravenous, Stop: 10/18/22 23:59:00 EDT Documented Medications Documented Multivitamin: 1 tab(s), Oral, Daily, 0 Refill(s) Tylenol 8 Hour 650 mg oral tablet, extended release: 1,300 mg, 2 tab(s), Oral, q8h, PRN: as needed for pain Zyrtec 10 mg oral tablet: 10 mg, 1 tab(s), Oral, BID amitriptyline 150 mg oral tablet: 150 mg, 1 tab(s), Oral, qHS, 0 Refill(s) doxepin 10 mg oral capsule: 10 mg, 1 cap(s), Oral, qDay propranolol 80 mg oral capsule, extended release: 80 mg, 1 cap(s), Oral, Daily, 0 Refill(s) sulfaSALAzine 500 mg oral delayed release tablet: 1,000 mg, 2 tab(s), Oral, BID triamcinolone 0.1% topical cream: 1 magaly, Topical, Daily, Medications (2) Active Scheduled: (1) ceFAZolin 2 gram(s), IV Piggyback, PREOP pharm Continuous: (1) NS (0.9% nacl) 1,000 mL 1,000 mL, Intravenous, 75 mL/hr PRN: (0) Problem list: Active Problems (8) Fibromyalgia GERD (gastroesophageal reflux disease) HTN (hypertension) Kidney stone Migraine headache OA (osteoarthritis) RA (rheumatoid arthritis) Sjogren's syndrome Histories Past Medical History: No active or resolved past medical history items have been selected or recorded. Family History: No family history items have been selected or recorded. Procedure history: Tubal ligation (437059104). Total prosthetic arthroplasty of left knee (0651528104). ESWL - Extracorporeal shockwave lithotripsy for renal calculus (678505747). Anal fissurectomy (7091209235). Appendectomy (757491237). Cholecystectomy (64595110). History of ureteral stent placement (9403013742). Social History Social & Psychosocial Habits Alcohol 10/01/2022 Use: Never Substance Abuse 10/01/2022 Use: Never Tobacco 10/01/2022 Tobacco Use: Never (less than 100 in l Home/Environment 10/01/2022 Domestic Concerns None Living situation: Home/Independent Primary Crystal Slicer: Self Current Home Treatments None Special Services and Community Resources None Spouse Name Radha Marital Status of Patient if Patient Independent Adult: Nutrition/Health 10/01/2022 Type of diet: Regular Appetite Fair Eating Difficulties None . Physical Examination Vital Signs 10/18/2022 9:30 EDT Temperature Temporal Artery 36.9 DegC Apical Heart Rate 69 bpm Respiratory Rate 20 br/min Systolic Blood Pressure Non-Invasive 101 mmHg Diastolic Blood Pressure Non-Invasive 80 mmHg Vital Signs(last 24 hrs) Last Charted Resp Rate 20 br/min (OCT 18 09:30) CHA481 mmHg (OCT 18 09:30) DBP80 mmHg (OCT 18 09:30) Measurements from flowsheet : Measurements 10/18/2022 9:30 EDT Height 167.6 cm Height in inches 66 inch(es) Admission Weight 72.6 kg Weight Lbs 159.7 lb Weight Method Stated [place] Body Weight 59.26 kg Admission Body Mass Index 25.85 m2 Pain assessment: Pain Assessment 10/18/2022 9:30 EDT Primary Pain Location Flank Primary Pain Laterality Right Primary Pain Intensity 8 Primary Pain Quality Aching Primary Pain Nonverbal Response Appears restful Pain Scale Type 0-10 Pain scale . General: Alert and oriented, No acute distress. Airway: Normal temporomandibular joint mobility. Mallampati classification: II (soft palate, fauces, uvula visible). Dentition Evaluation: Denies loose/chipped teeth. Respiratory: Lungs are clear to auscultation, Respirations are non-labored. Cardiovascular: Normal rate, Regular rhythm. Neurologic: Alert, Oriented. Review / Management Results review: No qualifying data available , Lab results 10/18/2022 9:42 EDT SN - Preop - CTm Pt Ready for OR/Proced 10/18/2022 9:42 10/18/2022 9:40 EDT Sodium Chloride 0.9% Begin Bag 1,000 mL mL 10/18/2022 9:30 EDT Height 167.6 cm Height in inches 66 inch(es) Admission Weight 72.6 kg Weight Lbs 159.7 lb Weight Method Stated [place] Body Weight 59.26 kg Admission Body Mass Index 25.85 m2 Temperature Temporal Artery 36.9 DegC Apical Heart Rate 69 bpm Respiratory Rate 20 br/min Systolic Blood Pressure Non-Invasive 101 mmHg Diastolic Blood Pressure Non-Invasive 80 mmHg Primary Pain Location Flank Primary Pain Laterality Right Primary Pain Intensity 8 Primary Pain Quality Aching Primary Pain Nonverbal Response Appears restful Pain Scale Type 0-10 Pain scale Monitor Alarms On and Limits Checked Heart Sounds ICU S1S2 Heart Rhythm Regular Dorsalis Pedis Pulse, Left 2+ Normal Dorsalis Pedis Pulse, Right 2+ Normal Respirations Unlabored Respiratory Pattern Regular Breath Sounds Auscultated Anterior only All Lobes Breath Sounds Clear Cough Dry, Occasional Oxygen Therapy Room air Oxygen Saturation 96 % Abdomen Description Soft, Rounded Bowel Sounds All Quadrants Present Genitourinary Symptoms Dysuria Urinary Elimination Voiding with difficulties Skin Temperature Warm Skin Description [place], Dry Skin Integrity Intact Skin Moisture General Dry IV Present Present Continuous IV Infusions NS Forearm Left 10/18/2022 20 gauge Peripheral IV Activity: Insert new site Peripheral IV Dressing Condition: Clean, Dry, Intact Peripheral IV Dressing Activity: Applied, Transparent dressing Peripheral IV Line Status/Patency: Continuous infusion, Good blood return Peripheral IV Site Condition: No complications Peripheral IV Equipment: Extension set, PRN Adaptor Peripheral IV Number of Attempts: 1 Neurological Symptoms Patient denies Extremity Movement Equal Characteristics of Speech Clear Level of Consciousness Alert Strength All Extremities Strong Tone All Extremities Normal Sensation All Extremities Intact Affect/Behavior Appropriate, Calm, Cooperative Orientation Oriented x 4 Allergies Yes Consent Form Signed Yes Patient Dressed In Hospital gown, No undergarments Pre-op Preparation Glasses removed CHG Preoperative Wash/Wipe Not done CHG Skin Prep No History & Physical On Chart Yes Belongings At Bedside Glasses, Jacket, Pants, Purse, Shirt, Shoes, Socks, Undergarments Activity Status ADL Awake, Repositions self, Resting SCD On/Re-applied bilateral knee high NPO Status Maintained, More than 8 hours Standard Safety ID band on, Allergy Band on, Call device within reach, Bed in low position, Wheels locked, Upper/Half-Length side-rails up, Visitor at bedside, Non-Slip footwear Demonstrates Correct Call Light Use Yes Allergy Band on and Verified Yes Patient ID Band on and Verified Yes Implants Verified Yes Pacemaker/AICD Verified Yes Blood Consent Signed Yes Last Fluid Intake 10/17/2022 23:30 Last Food Intake 10/17/2022 23:30 Last Void 10/18/2022 9:15 10/18/2022 9:25 EDT Safety Brochure Information Reviewed Yes [facility] Video Viewed No Teaching Evaluation Verbalizes/Nonverbally indicates understanding Admission Note-Nursing Same Day Patient History (Modified) 10/18/2022 9:18 EDT SN - Preop - CTm Pt in SDS Room 10/18/2022 9:15 . Assessment and Plan [place] [employer] Anesthesiologists (ASA) physical status classification: Class III. Anesthetic Preoperative Plan Anesthetic technique: General. Maintenance airway: Laryngeal mask airway. Postoperative pain management: Per surgeon. Risks discussed: nausea, vomiting, sore throat, dental injury, hypotension, allergic reaction, serious complications. Informed consent: signed by patient. Digitally Signed by ALESSANDRA DAMON on 10/18/2022 10:07 AM [facility] Evaluation + Plan note Note Date & Type Note Facility Evaluation + Plan note Future Appointments [facility] Hospital course Narrative Note Date & Type Note Facility Hospital course Narrative No data available for this section [facility] Hospital Discharge instructions Note Date & Type Note Facility Hospital Discharge instructions No data available for this section [facility] Progress note Note Date & Type Note Facility Progress note No data available for this section [facility] Summary Purpose Family History No Family History Records Found Advance Directives No Advanced Directives Records Found Additional Source Comments Care Team (unrecognized sect ion and content) Care Team Personnel Name: KIZYZ MAGANA MD Member Role: Primary Care Physician Address: Address: [address] [place] [address] Care Team Related Persons Name: RADHA PETERSON Patient Care team informatio n (unrecognized section and content) Care Team Personnel Name: KIZZY MAGANA MD Member Role: Primary Care Physician Address: Address: [address] [place] [address] Care Team Related Persons Name: JOSE CHANDLER Name: RADHA PETERSON Address: Home [address] [place] [address] INFORMATION SOURCE (unrecogn ized section and content) FOR RECORDS PERTAINING TO PATIENTS WHO ARE OR HAVE BEEN ENROLLED IN A CHEMICAL DEPENDENCY/SUBSTANCEABUSE PROGRAM, SOME INFORMATION MAY BE OMITTED. This clinical summary was aggregated from multiple sources. Caution should be exercised in using it in the provision of clinical care. This summary normalizes information from multiple sources, and as a consequence, information in this document may materially change the coding, format and clinical context of patient data. In addition, data may be omitted in some cases. CLINICAL DECISIONS SHOULD BE BASED ON THE PRIMARY CLINICAL RECORDS. [facility]. provides no warranty or guarantee of the accuracy or completeness of information in this document.
[2023-07-30 11:24] LABS: ALB/GLOB Ratio 0.9 RATIO (0.9-2.4); AST(SGOT) 15 U/L (15-37); Alanine Aminotransfer ALT/SGPT 18 U/L (13-56); Albumin, Serum 3.6 g/dL (3.2-5.0); Alkaline Phosphatase 81 U/L (45-117); Anion Gap 1 (5-15); BUN 22 mg/dL (7-18); BUN/Creat Ratio 30.3 RATIO (10-20); Calcium,Total 9.7 mg/dL (8.5-10.1); Chloride 104 mmol/L (98-107); Creatinine, Serum 0.73 mg/dL (0.55-1.02); EST Glomerular Filtration Rate 85 mL/min (>60); Est Glom Filt Rate - Afr Amer 102 mL/min (>60); Globulin 3.9 g/dL (2.2-4.2); Glucose 61 mg/dL (74-106); Potassium 3.9 mmol/L (3.5-5.1); Protein, Total 7.5 g/dL (6.4-8.2); Sodium Level 139 mmol/L (136-145)
== END | disposition home or self-care (01) ==
LOC: MTLAB 09:28
PROVIDERS: PCP Family Medicine; Referring Provider Internal Medicine Rheumatology; Visit Provider Internal Medicine Rheumatology
DX: M06.4 Inflammatory polyarthropathy (principal); M79.7 Fibromyalgia; Z79.899 Other long term (current) drug therapy
CPT/HCPCS: 36415; 80053; 85025

== ENCOUNTER → 2023-08-15 | Outpatient (CLI) | payer MEDICARE, SELFPAY ==
--- OUTSIDE RECORDS SUMMARY | 2023-08-15 13:46 | XMS RPT_ITS | CCD ---
Author Name Unknown Address [address] [place] [address] Organization [facility] Care Team Providers Care General Farmer Name Role Phone IZZY MORALES, DR DURAND Primary Care Physician ANAI MORALES, DR VENECIA ROBLEDO Attending Sunita MAGANA MD, DR DURAND Primary Care Unavailable ANAI MORALES, DR VENECIA ROBLEDO Attending Sunita MAGANA MD, DR DURAND Primary Care Unavailable Allergies Allergy Classification Reported Allergen(s) Allergy Type Date of Onset Reaction(s) Facility (2 sources) Lavender extract; Translations: [lavender] Allergy to substance unknown [facility] Medications Current Medications Medication Drug Class(es) Dates [...] day(s), # 12 tab(s), 0 Refill(s), Pharmacy: [facility], Calculi, ureter, 167.6, cm, 10/18/22 9:52:00 [...] tab(s), 0 Refill(s), 10/23/22 13:53:00 EDT, Pharmacy: [facility], 167.6, cm, 10/18/22 9:52:00 EDT, Height, [...] Non-Invasive [address] VENECIA OSPINA MD [facility] 10-18-2022 15:25-0400 Heart rate 63 /min DR VENECIA OSPINA MD [facility] 10-18-2022 15:25-0400 Respiratory rate 12 /min DR VENECIA OSPINA MD [facility] 10-18-2022 15:25-0400 Systolic Blood Pressure Non-Invasive [address] VENECIA OSPINA MD [facility] 10-18-2022 14:45-0400 Diastolic Blood Pressure Non-Invasive [address] VENECIA OSPINA MD [facility] 10-18-2022 14:45-0400 Heart rate 70 /min DR VENECIA OSPINA MD [facility] 10-18-2022 14:45-0400 Respiratory rate 12 /min DR VENECIA OSPINA MD [facility] 10-18-2022 14:45-0400 Systolic Blood Pressure Non-Invasive [address] VENECIA OSPINA MD [facility] 10-18-2022 14:30-0400 Diastolic Blood Pressure Non-Invasive [address] VENECIA OSPINA MD [facility] 10-18-2022 14:30-0400 Heart rate 71 /min DR VENECIA OSPINA MD [facility] 10-18-2022 14:30-0400 Respiratory rate 10 /min DR VENECIA OSPINA MD [facility] 10-18-2022 14:30-0400 Systolic Blood Pressure Non-Invasive [address] VENECIA OSPINA MD [facility] 10-18-2022 13:45-0400 Body temperature 97.16 [degF] DR VENECIA OSPINA MD [facility] 10-18-2022 13:40-0400 Respiratory Rate - Anes 13 br/min DR VENECIA OSPINA MD [facility] 10-18-2022 13:35-0400 Respiratory Rate - Anes 16 br/min DR VENECIA OSPINA MD [facility] 10-18-2022 13:30-0400 Respiratory Rate - Anes 15 br/min DR VENECIA OSPINA MD [facility] 10-18-2022 09:30-0400 Body height 167.[address] VENECIA OSPINA MD [facility] 10-18-2022 09:30-0400 Body temperature 98.42 [degF] DR VENECIA OSPINA MD [facility] 10-18-2022 09:30-0400 Body weight 72.[address] VENECIA OSPINA MD [facility] 10-18-2022 09:30-0400 Heart rate 69 /min DR VENECIA OSPINA MD [facility] 10-01-2022 11:140500 Body height 167.[address] VENECIA OSPINA MD [facility] 10-01-2022 11:140500 Body weight 72.[address] VENECIA OSPINA MD [facility] 10-01-2022 11:140500 Body weight 25.84 kg/m2 DR VENECIA OSPINA MD [facility] Encounters Encounter Date Encounter Type Care Provider Facility Start: 10-18-2022 End: 10-18-[address] VENECIA OSPINA MD Facility:B Start: 10-18-2022 End: 10-18-[address] VENECIA OSPINA MD [facility] Start: 10-01-2022 End: 10-02-[address] VENECIA OSPINA MD Facility:[facility] Start: 10-01-2022 End: 10-01-[address] VENECIA OSPINA MD [facility] Procedures Date Procedure Procedure Detail Performing Clinician Start: 10-18-2022 Extracorporeal shock wave lithotripsy of ureter DR VENECIA OSPINA MD Payers Date Payer Category Payer Private Health Insurance [id number] 1955 Unknown [id number] 1955 Unknown [id number] Social History Date Type Detail Facility Start: 10-01-2022 Tobacco smoking status Never s moked tobacco (finding) [facility] Sex Assigned At Female [facility] Functional Status Date Assessment Result Facility 10-18-2022 Functional Status Awake, Up ad alina [facility] 10-18-2022 Functional Status Mar[facility] 10-18-2022 Functional Status Precautions maintained [facility] 10-18-2022 Functional Status Maintained, More than 8 hours [facility] 10-01-2022 Functional Status Sensory Deficits None A [facility] Mental Status Date Assessment Result Facility 10-18-2022 Mental Status Orientation Oriented x 4 [facility] 10-18-2022 Mental Status [facility] Hospital Discharge instructions 10-18-2022 Note Date [...] Follow these instructions at home: Medicines Take aqdi-arc-fqxpgpt and prescription medicines only as told by [...] of blood in your urine increases. Take ecri-oko-yiaugbw and prescription medicines only as told by your health care provider. Drink enough fluid to keep your urine pale yellow. This information is not intended to replace advice given to you by your health care provider. Make sure you discuss any questions you have with your health care provider. Document Released: 03/16/2014 Document Revised: 04/20/2019 Document Reviewed: 04/21/2019 [employer] Patient Education 2020 [employer]. 10/18/2022 13:55:46 1-SDS URO Cystoscopy (04/2022)(CUSTOM) YOU [...] chills please contact our office immediately at [phone], Option 1 for the nurse line. POST [...] Follow these instructions at home: Medicines Take eily-tcl-ylqokoj and prescription medicines only as told by [...] 08/02/2008 Document Revised: 10/25/2019 Document Reviewed: 06/04/2017 [employer] Patient Education 2020 [employer]. 10/18/2022 13:55:32 Lithotripsy, Care After Lithotripsy, Care [...] Follow these instructions at home: Medicines Take amxo-any-wapeiye and prescription medicines only as told by [...] 08/02/2008 Document Revised: 10/25/2019 Document Reviewed: 06/04/2017 [employer] Patient Education 2020 [employer]. 10/18/2022 13:55:31 General Anesthesia, Adult, Care After [...] what activities are safe for you. Take ruwr-xph-ukkzbpk and prescription medicines only as told by [...] 10/20/2001 Document Revised: 07/17/2018 Document Reviewed: 02/27/2018 [employer] Patient Education 2020 [employer]. Follow Up Care 09/25/2022 07:43:52 With:VENECIA OSPINA MD, CSA Medical UROLOG [facility] Address: [address] [place] [phone] When: Unknown [facility] Summary of episode note 10-18-2022 Note Date & Type Note Facility 10-18-2022 Summary of episode note Discharge Instructions Thank you for allowing [facility] to assist you with your healthcare needs. [...] pain medicine as necessary, can also take fdsh-lik-dmceozs Azo for bladder which helps with stent pain. Call my office for an appointment next week to have the stent removed in the office Follow Up Appointments Follow Up with VENECIA OSPINA MD, [place] When Where: [address] [place] [phone] The Following Activity and Diet Have Been [...] Calculi, ureter Duration: 7 Days Pickup at [facility] New ciprofloxacin (Cipro 500 mg oral tablet) 1 tab(s) by mouth Every 12 hours Duration: 5 Days Pickup at [facility] Unchanged acetaminophen (Tylenol 8 Hour 650 [...] 1 application Topical Every day Pharmacy Information [facility]: [address] [id number] [phone] Please take this list to your next [...] Follow these instructions at home: Medicines Take faoa-eog-aikaqso and prescription medicines only as told by [...] of blood in your urine increases. Take uvqh-tie-edjgnsd and prescription medicines only as told by your health care provider. Drink enough fluid to keep your urine pale yellow. This information is not intended to replace advice given to you by your health care provider. Make sure you discuss any questions you have with your health care provider. Document Released: 03/16/2014 Document Revised: 04/20/2019 Document Reviewed: 04/21/2019 [employer] Patient Education 2020 [employer]. YOU HAVE BEEN SCHEDULED FOR OFFICE CYSTOSCOPY [...] chills please contact our office immediately at [phone], Option 1 for the nurse line. POST [...] Follow these instructions at home: Medicines Take nrvw-ryq-dqzeooo and prescription medicines only as told by [...] Document Reviewed: 06/04/2017 Elsevier Patient Education 2020 [employer] Lithotripsy, Care After This sheet gives [...] Follow these instructions at home: Medicines Take asap-dxy-jqqzwgx and prescription medicines only as told by [...] 08/02/2008 Document Revised: 10/25/2019 Document Reviewed: 06/04/2017 [employer] Patient Education 2020 [employer] General Anesthesia, Adult, Care After This [...] what activities are safe for you. Take ldua-gkv-efphezf and prescription medicines only as told by [...] 10/20/2001 Document Revised: 07/17/2018 Document Reviewed: 02/27/2018 [employer] Patient Education 2020 [employer]. Additional Information VACCINATE! IT SAVES LIVES! Members of the community who have not yet received the COVID-19 vaccine and would like to receive it can visit one of [facility] vaccine clinics. There are many vaccine clinic locations within the [facility]. For locations and available times, please visit https://gettheshot.coronavirus.vti o.gov/. It is important to note that some COVID mobile vaccine clinics are held outdoors and may be canceled in rainy or stormy conditions. To learn more about pediatric vaccinations (ages 5-11), we invite you to visit the [facility] webpage. https://www.[facility].org/pag es/8761-Xsofm-Ybpdbgmzadx-Frequent hx-Bggez-Whzvnppvv.html To learn more about the COVID-19 vaccine, we invite you to visit the CDC website for a list of frequently asked questions. https://www.cdc.gov/coronavirus/ 19-ncov/vaccines/faq.html [facility] Patient Portal Access Instructions: Stay connected with your healthcare team and access your personal medical information anytime with the [facility] Patient Portal.If you would like a full copy of your medical records, please contact the [facility] Medical Records Department, Friday through Friday between 8a.m. and 4:30p.m. Please follow the directions below to access the portal: 1.Access the email account you provided upon registration to the hospital.2.Look for an invitation email from [facility].3.Open the email and access the invitation link: Accept Invitation to [facility]4.Fill in the required carr to create your account. Sign into [email or web address] with your username and password that you [...] you will allow to register on the [employer] Patient Portal for access to your information. You can also access the [facility] Patient Portal on the 250ok. Simply click on Health Records under Health Data and then click on the FoKo logo. HOW TO SAFELY DISPOSE OF PRESCRIPTION [...] Call your local pharmacy or go to [email or web address] to find one close to you.3.Make use of household items: Use cat litter or old coffee grounds to dispose medications if other options are not available. Mix your drugs with these household products, seal them in an airtight container and throw it into the garbage. Call [facility]: [phone] to be sure your drugs can be [...] aware that I should contact my doctor. 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 [...] selected or recorded. Procedure history: Tubal ligation (503123327). Total prosthetic arthroplasty of left knee (7731172840). ESWL - Extracorporeal shockwave lithotripsy for renal calculus (531676797). Anal fissurectomy (6247786352). Appendectomy (740003044). Cholecystectomy (11047584). History of ureteral stent placement (6021825127). Social History Social & Psychosocial Habits Alcohol 10/01/2022 Use: Never Substance Abuse 10/01/2022 Use: Never Tobacco 10/01/2022 Tobacco Use: Never (less than 100 in l Home/Environment 10/01/2022 Domestic Concerns None Living situation: Home/Independent Primary Patient Account Analyst: Self Current Home Treatments None Special Services [...] Resp Rate 20 br/min (OCT 18 09:30) CQT086 mmHg (OCT 18 09:30) DBP80 mmHg (OCT 18 09:30) Measurements from flowsheet : Measurements 10/18/2022 9:30 EDT Height 167.6 cm Height in inches 66 inch(es) Admission Weight 72.6 kg Weight Lbs 159.7 lb Weight Method Stated [place] Body Weight 59.26 kg Admission Body Mass [...] Weight Lbs 159.7 lb Weight Method Stated [place] Body Weight 59.26 kg Admission Body Mass [...] with difficulties Skin Temperature Warm Skin Description Amorita, Dry Skin Integrity Intact Skin Moisture General [...] 9:25 EDT Safety Brochure Information Reviewed Yes [facility] Video Viewed No Teaching Evaluation Verbalizes/Nonverbally indicates understanding Admission Note-Nursing Same Day Patient History (Modified) 10/18/2022 9:18 EDT SN - Preop - CTm Pt in SDS Room 10/18/2022 9:15 . Assessment and Plan [place] [employer] Anesthesiologists (ASA) physical status classification: Class III. Anesthetic Preoperative Plan Anesthetic technique: General. Maintenance airway: Laryngeal mask airway. Postoperative pain management: Per surgeon. Risks discussed: nausea, vomiting, sore throat, dental injury, hypotension, allergic reaction, serious complications. Informed consent: signed by patient. Digitally Signed by ALESSANDRA DAMON on 10/18/2022 10:07 AM [facility] Evaluation + Plan note Note Date & Type Note Facility Evaluation + Plan note Future Appointments [facility] Hospital course Narrative Note Date & Type Note Facility Hospital course Narrative No data available for this section [facility] Hospital Discharge instructions Note Date & Type Note Facility Hospital Discharge instructions No data available for this section [facility] Progress note Note Date & Type Note Facility Progress note No data available for this section [facility] Summary Purpose Family History No Family History Records Found Advance Directives No Advanced Directives Records Found Additional Source Comments Care Team (unrecognized sect ion and content) Care Team Personnel Name: KIZZY MAGANA MD Member Role: Primary Care Physician Address: Address: [address] [place] [address] Care Team Related Persons Name: RADHA PETERSON Patient Care team informatio n (unrecognized section and content) Care Team Personnel Name: KIZZY MAGANA MD Member Role: Primary Care Physician Address: Address: [address] [place] [address] Care Team Related Persons Name: JOSE CHANDLER Name: RADHA PETERSON Address: Home [address] [place] [address] INFORMATION SOURCE (unrecogn ized section and content) [...] BE BASED ON THE PRIMARY CLINICAL RECORDS. [facility] [employer] [facility]. provides no warranty or guarantee of the accuracy or completeness of information in this document.
[2023-08-15 16:01] LABS: Cholesterol 215 mg/dL (200); High Density Lipoprotein 53 mg/dL; Triglycerides 221 mg/dL; Very Low Density Lipoprotein 44 mg/dL (5-40)
[2023-08-15 16:24] LABS: Microalbumin,Random Urine 9.8 mg/L (NO RANGE EST.); Microalbumin:Creatinine Ratio 11.8 mg/g CRE (<30 mg/g CRE)
== END | disposition home or self-care (01) ==
LOC: MTLAB 13:32
PROVIDERS: PCP Family Medicine; Referring Provider Family Medicine; Visit Provider Family Medicine
DX: I10 Essential (primary) hypertension (principal)
CPT/HCPCS: 36415; 80061; 82043; 82570

== ENCOUNTER → 2023-09-24 | Outpatient (CLI) | payer MEDICARE, SELFPAY ==
[2023-09-24 15:36] LABS: Absolute Neutrophil Count 2.7 X10^3/uL (2.0-7.7); Basophil# 0.03 X10^3/uL; Basophil% 0.6 % (0-1); Eosinophil# 0.09 X10^3/uL; Eosinophils% 1.9 % (0-5); Hematocrit 38.8 % (37-47); Hemoglobin 12.5 g/dL (12.0-15.0); Lymphocyte % 33.2 % (19-41); Mean Corp Hgb Conc 32.2 g/dL (32-36); Mean Corpuscular Hgb 30.9 pg (27.0-32.0); Mean Corpuscular Volume 95.8 fL (81-99); Mean Platelet Vol. 9.8 fl (6.2-12.0); Monocyte# 0.42 X10^3/uL; Monocyte% 8.7 % (0-10); NRBC Flagged by Analyzer 0 % (0-5); Neutrophil # 2.67 X10^3/uL (2.7-7.7); Neutrophil % 55.4 % (47-70); Platelet Count 255 K/mm3 (150-450); RBC Distribution Width SD 42.6 fl (35.1-43.9); Red Blood Count 4.05 M/mm3 (4.2-5.4); White Blood Count 4.8 K/mm3 (4.4-11.0)
[2023-09-24 16:30] LABS: AST(SGOT) 18 U/L (15-37); Alanine Aminotransfer ALT/SGPT 23 U/L (13-56); Albumin, Serum 3.8 g/dL (3.2-5.0); Alkaline Phosphatase 72 U/L (45-117); Anion Gap 4 (5-15); BUN 17 mg/dL (7-18); BUN/Creat Ratio 21.4 RATIO (10-20); Calcium,Total 9.4 mg/dL (8.5-10.1); Chloride 105 mmol/L (98-107); EST Glomerular Filtration Rate 76 mL/min (>60); Est Glom Filt Rate - Afr Amer 92 mL/min (>60); Glucose 89 mg/dL (74-106); Potassium 3.8 mmol/L (3.5-5.1); Protein, Total 7.8 g/dL (6.4-8.2); Sodium Level 140 mmol/L (136-145)
== END | disposition home or self-care (01) ==
PROVIDERS: PCP Family Medicine; Referring Provider Internal Medicine Rheumatology; Visit Provider Internal Medicine Rheumatology
DX: M06.4 Inflammatory polyarthropathy (principal); M79.7 Fibromyalgia; Z79.899 Other long term (current) drug therapy
CPT/HCPCS: 36415; 80053; 85025

== ENCOUNTER → 2023-12-24 | Outpatient (CLI) | payer MEDICARE, SELFPAY ==
[2023-12-24 18:15] LABS: Absolute Neutrophil Count 3.2 X10^3/uL (2.0-7.7); Basophil# 0.04 X10^3/uL; Basophil% 0.7 % (0-1); Eosinophil# 0.13 X10^3/uL; Eosinophils% 2.1 % (0-5); Hematocrit 37.8 % (37-47); Hemoglobin 12.2 g/dL (12.0-15.0); Lymphocyte % 34.6 % (19-41); Mean Corp Hgb Conc 32.3 g/dL (32-36); Mean Corpuscular Hgb 30.6 pg (27.0-32.0); Mean Corpuscular Volume 94.7 fL (81-99); Mean Platelet Vol. 10.2 fl (6.2-12.0); Monocyte# 0.59 X10^3/uL; Monocyte% 9.7 % (0-10); NRBC Flagged by Analyzer 0 % (0-5); Neutrophil # 3.19 X10^3/uL (2.7-7.7); Neutrophil % 52.6 % (47-70); Platelet Count 269 K/mm3 (150-450); RBC Distribution Width CV 11.8 % (11.6-14.6); Red Blood Count 3.99 M/mm3 (4.2-5.4); White Blood Count 6.1 K/mm3 (4.4-11.0)
[2023-12-24 18:40] LABS: ALB/GLOB Ratio 0.9 RATIO (0.9-2.4); AST(SGOT) 23 U/L (15-37); Alanine Aminotransfer ALT/SGPT 24 U/L (13-56); Albumin, Serum 3.9 g/dL (3.2-5.0); Alkaline Phosphatase 83 U/L (45-117); Anion Gap 6 (5-15); BUN 19 mg/dL (7-18); BUN/Creat Ratio 23.9 RATIO (10-20); Calcium,Total 9.6 mg/dL (8.5-10.1); Chloride 103 mmol/L (98-107); EST Glomerular Filtration Rate 76 mL/min (>60); Est Glom Filt Rate - Afr Amer 92 mL/min (>60); Globulin 4.3 g/dL (2.2-4.2); Glucose 86 mg/dL (74-106); Potassium 4.1 mmol/L (3.5-5.1); Protein, Total 8.2 g/dL (6.4-8.2); Sodium Level 138 mmol/L (136-145)
== END | disposition home or self-care (01) ==
LOC: MTLAB 15:23
PROVIDERS: PCP Family Medicine; Referring Provider Internal Medicine Rheumatology; Visit Provider Internal Medicine Rheumatology
DX: M06.4 Inflammatory polyarthropathy (principal); M79.7 Fibromyalgia; M18.12 Unilateral primary osteoarthritis of first carpometacarpal joint, left hand; M19.041 Primary osteoarthritis, right hand; M17.0 Bilateral primary osteoarthritis of knee; Z79.899 Other long term (current) drug therapy
CPT/HCPCS: 36415; 80053; 85025

== ENCOUNTER → 2024-03-03 | Outpatient (CLI) | payer MEDICARE, SELFPAY ==
--- NOTE | 2024-03-03 07:30 | BI_ITS ---
MAMMOGRAPHY - BILATERAL SCREENING REASON FOR EXAM: Female, 68 years old. Routine annual screening examination. PERTINENT HISTORY: Non-contributory. TECHNIQUE: Digital bilateral breast hellen (3D mammographic acquisition) in the CC and MLO projections. 2-D mediolateral oblique (MLO) and craniocaudad (CC) views of both breasts were obtained. CAD: Full Field Digital Mammography with Computer Added Detection was performed. COMPARISON: Comparison is made with prior study dated February 25, 2023 and February 22, 2022. FINDINGS: Breast Composition: There are scattered areas of fibroglandular density. There are no dominant masses or suspicious calcifications. No other significant abnormalities are identified. There has been no significant change since the prior study. BI/SCRN MAMM (CAD)W/HELLEN BILAT IMPRESSION: Stable bilateral screening mammogram. Yearly follow-up mammogram recommended. (A) ASSESSMENT CATEGORY: BIRADS Category 1: Negative. A letter regarding these results will be sent to the patient by the facility within 30 days. Approximately 10% of breast cancers are not detected by mammography. A normal mammogram should not delay biopsy of a clinically suspicious abnormality. [id number] Electronically Signed: Tim Jenkins MD at 9:19 EDT ,
--- NOTE | 2024-03-03 12:45 | NEURO_ITS ---
NCS and/or EMG Patient Report Ordering Doctor: Kateryna Medina DATE OF SERVICE: 03/03/24 Loan presents with complaints of numbness and tingling in both feet. Electrodiagnostic findings: Left peroneal motor nerve demonstrates normal distal latency and amplitude with greater than 20% drop in conduction across the fibular head. Right peroneal motor nerve demonstrates normal distal latency and amplitude with normal conduction velocity. Tibial motor responses within normal limits bilaterally. Sensory responses demonstrate decreased conduction velocity in the sural nerves and left superficial peroneal nerve. Normal tibial and peroneal F?waves. Prolonged H?reflex bilaterally. Needle EMG testing was pe rformed in the lower limbs. All muscles tested showed no evidence of denervation with normal motor unit potentials. Electrodiagnostic impression: This is an abnormal study in the lower limbs Were 1 electrodiagnostic findings are suggestive of peripheral polyneuropathy with motor and sensory nerve involvement. There is evidence for demyelination. 2. There is no electrodiagnostic evidence for lumbosacral radiculopathy. Multi Select Codes Neurology Neurology Interp Codes: 86349-34 Musc test done w/n test comp (interp) (2) and 44472-18 Nrv cndj test 9-10 studies (interp)
== END | disposition home or self-care (01) ==
PROVIDERS: PCP Family Medicine; Referring Provider Family Medicine; Visit Provider Family Medicine
DX: Z12.31 Encounter for screening mammogram for malignant neoplasm of breast (principal); R20.2 Paresthesia of skin
CPT/HCPCS: 77063; 77067; 95886; 95911

== ENCOUNTER → 2024-03-24 | Outpatient (CLI) | payer MEDICARE, SELFPAY ==
[2024-03-24 10:18] LABS: Absolute Lymphocyte Count 1.64 X10^3/uL (0.83-4.51); Absolute Neutrophil Count 2.2 X10^3/uL (2.0-7.7); Basophil# 0.05 X10^3/uL; Basophil% 1.1 % (0-1); Eosinophil# 0.34 X10^3/uL; Eosinophils% 7.2 % (0-5); Hematocrit 36.9 % (37-47); Hemoglobin 11.9 g/dL (12.0-15.0); Lymphocyte # 1.64 X10^3/ul (0.83-4.51); Lymphocyte % 34.7 % (19-41); Mean Corp Hgb Conc 32.2 g/dL (32-36); Mean Corpuscular Hgb 30.2 pg (27.0-32.0); Mean Corpuscular Volume 93.7 fL (81-99); Mean Platelet Vol. 9.8 fl (6.2-12.0); Monocyte% 10.6 % (0-10); NRBC Flagged by Analyzer 0 % (0-5); Neutrophil # 2.18 X10^3/uL (2.7-7.7); Platelet Count 243 K/mm3 (150-450); RBC Distribution Width CV 11.8 % (11.6-14.6); RBC Distribution Width SD 40.5 fl (35.1-43.9); Red Blood Count 3.94 M/mm3 (4.2-5.4); White Blood Count 4.7 K/mm3 (4.4-11.0)
[2024-03-24 11:08] LABS: AST(SGOT) 18 U/L (15-37); Alanine Aminotransfer ALT/SGPT 18 U/L (13-56); Albumin, Serum 3.6 g/dL (3.2-5.0); Alkaline Phosphatase 82 U/L (45-117); Anion Gap 6 (5-15); BUN 16 mg/dL (7-18); BUN/Creat Ratio 19.9 RATIO (10-20); Chloride 106 mmol/L (98-107); EST Glomerular Filtration Rate 75 mL/min (>60); Est Glom Filt Rate - Afr Amer 91 mL/min (>60); Globulin 3.7 g/dL (2.2-4.2); Glucose 99 mg/dL (74-106); Potassium 4.1 mmol/L (3.5-5.1); Protein, Total 7.3 g/dL (6.4-8.2); Sodium Level 140 mmol/L (136-145)
== END | disposition home or self-care (01) ==
LOC: MTLAB 09:18
PROVIDERS: PCP Family Medicine; Referring Provider Internal Medicine Rheumatology; Visit Provider Internal Medicine Rheumatology
DX: M06.4 Inflammatory polyarthropathy (principal); M79.7 Fibromyalgia; M18.12 Unilateral primary osteoarthritis of first carpometacarpal joint, left hand; M19.041 Primary osteoarthritis, right hand; M17.0 Bilateral primary osteoarthritis of knee; Z79.899 Other long term (current) drug therapy
CPT/HCPCS: 36415; 80053; 85025

== ENCOUNTER → 2024-06-16 | Outpatient (CLI) | payer MEDICARE, SELFPAY ==
[2024-06-16 10:22] LABS: Absolute Lymphocyte Count 1.57 X10^3/uL (0.83-4.51); Absolute Neutrophil Count 2.8 X10^3/uL (2.0-7.7); Basophil# 0.04 X10^3/uL; Basophil% 0.8 % (0-1); Eosinophil# 0.35 X10^3/uL; Eosinophils% 6.8 % (0-5); Hematocrit 38.2 % (37-47); Hemoglobin 12.6 g/dL (12.0-15.0); Lymphocyte # 1.57 X10^3/ul (0.83-4.51); Lymphocyte % 30.3 % (19-41); Mean Corpuscular Hgb 30.7 pg (27.0-32.0); Mean Corpuscular Volume 92.9 fL (81-99); Mean Platelet Vol. 9.6 fl (6.2-12.0); Monocyte# 0.44 X10^3/uL; Monocyte% 8.5 % (0-10); NRBC Flagged by Analyzer 0 % (0-5); Neutrophil # 2.77 X10^3/uL (2.7-7.7); Neutrophil % 53.4 % (47-70); Platelet Count 259 K/mm3 (150-450); RBC Distribution Width CV 12.1 % (11.6-14.6); RBC Distribution Width SD 41.7 fl (35.1-43.9); Red Blood Count 4.11 M/mm3 (4.2-5.4); White Blood Count 5.2 K/mm3 (4.4-11.0)
[2024-06-16 10:57] LABS: AST(SGOT) 17 U/L (15-37); Alanine Aminotransfer ALT/SGPT 16 U/L (13-56); Albumin, Serum 3.7 g/dL (3.2-5.0); Alkaline Phosphatase 84 U/L (45-117); Anion Gap 6 (5-15); BUN 16 mg/dL (7-18); BUN/Creat Ratio 21.8 RATIO (10-20); Calcium,Total 9.3 mg/dL (8.5-10.1); Chloride 104 mmol/L (98-107); Creatinine, Serum 0.74 mg/dL (0.55-1.02); EST Glomerular Filtration Rate 83 mL/min (>60); Est Glom Filt Rate - Afr Amer 101 mL/min (>60); Globulin 3.8 g/dL (2.2-4.2); Glucose 109 mg/dL (74-106); Potassium 3.8 mmol/L (3.5-5.1); Protein, Total 7.5 g/dL (6.4-8.2); Sodium Level 139 mmol/L (136-145)
== END | disposition home or self-care (01) ==
LOC: MTLAB 08:46
PROVIDERS: PCP Family Medicine; Referring Provider Internal Medicine Rheumatology; Visit Provider Internal Medicine Rheumatology
DX: M06.4 Inflammatory polyarthropathy (principal); Z79.899 Other long term (current) drug therapy; M79.7 Fibromyalgia
CPT/HCPCS: 36415; 80053; 85025

== ENCOUNTER → 2024-08-27 | Outpatient (CLI) | payer MEDICARE, SELFPAY ==
[2024-08-27 13:21] LABS: Anion Gap 6 (5-15); BUN 20 mg/dL (7-18); BUN/Creat Ratio 26.6 RATIO (10-20); Calcium,Total 9.2 mg/dL (8.5-10.1); Chloride 101 mmol/L (98-107); Cholesterol 243 mg/dL (200); Creatinine, Serum 0.75 mg/dL (0.55-1.02); EST Glomerular Filtration Rate 81 mL/min (>60); Est Glom Filt Rate - Afr Amer 98 mL/min (>60); Glucose 82 mg/dL (74-106); High Density Lipoprotein 66 mg/dL; Potassium 3.9 mmol/L (3.5-5.1); Sodium Level 138 mmol/L (136-145); Triglycerides 119 mg/dL; Very Low Density Lipoprotein 24 mg/dL (5-40)
== END | disposition home or self-care (01) ==
LOC: MTLAB 10:44
PROVIDERS: PCP Family Medicine; Referring Provider Family Medicine; Visit Provider Family Medicine
DX: I10 Essential (primary) hypertension (principal)
CPT/HCPCS: 36415; 80048; 80061

== ENCOUNTER → 2024-09-09 | Outpatient (CLI) | payer MEDICARE, SELFPAY ==
[2024-09-09 15:19] LABS: Absolute Lymphocyte Count 1.88 X10^3/uL (0.83-4.51); Absolute Neutrophil Count 3.4 X10^3/uL (2.0-7.7); Basophil# 0.05 X10^3/uL; Basophil% 0.8 % (0-1); Eosinophil# 0.24 X10^3/uL; Eosinophils% 3.9 % (0-5); Hematocrit 39.6 % (37-47); Hemoglobin 12.5 g/dL (12.0-15.0); Lymphocyte # 1.88 X10^3/ul (0.83-4.51); Lymphocyte % 30.8 % (19-41); Mean Corp Hgb Conc 31.6 g/dL (32-36); Mean Corpuscular Hgb 29.9 pg (27.0-32.0); Mean Corpuscular Volume 94.7 fL (81-99); Mean Platelet Vol. 9.8 fl (6.2-12.0); Monocyte# 0.52 X10^3/uL; Monocyte% 8.5 % (0-10); NRBC Flagged by Analyzer 0 % (0-5); Neutrophil % 55.7 % (47-70); Platelet Count 274 K/mm3 (150-450); RBC Distribution Width CV 12.4 % (11.6-14.6); RBC Distribution Width SD 43.5 fl (35.1-43.9); Red Blood Count 4.18 M/mm3 (4.2-5.4); White Blood Count 6.1 K/mm3 (4.4-11.0)
[2024-09-09 15:56] LABS: ALB/GLOB Ratio 0.9 RATIO (0.9-2.4); AST(SGOT) 20 U/L (15-37); Alanine Aminotransfer ALT/SGPT 22 U/L (13-56); Albumin, Serum 3.8 g/dL (3.2-5.0); Alkaline Phosphatase 87 U/L (45-117); Anion Gap 5 (5-15); BUN 18 mg/dL (7-18); BUN/Creat Ratio 24.1 RATIO (10-20); Calcium,Total 9.5 mg/dL (8.5-10.1); Chloride 104 mmol/L (98-107); Creatinine, Serum 0.75 mg/dL (0.55-1.02); EST Glomerular Filtration Rate 82 mL/min (>60); Est Glom Filt Rate - Afr Amer 99 mL/min (>60); Globulin 4.3 g/dL (2.2-4.2); Glucose 81 mg/dL (74-106); Potassium 4.2 mmol/L (3.5-5.1); Protein, Total 8.1 g/dL (6.4-8.2); Sodium Level 139 mmol/L (136-145)
== END | disposition home or self-care (01) ==
LOC: MTLAB 11:40
PROVIDERS: PCP Family Medicine; Referring Provider Internal Medicine Rheumatology; Visit Provider Internal Medicine Rheumatology
DX: M06.4 Inflammatory polyarthropathy (principal); Z79.899 Other long term (current) drug therapy; M79.7 Fibromyalgia
CPT/HCPCS: 36415; 80053; 85025

== ENCOUNTER → 2024-10-27 | Outpatient (CLI) | payer MEDICARE, SELFPAY ==
[2024-10-27 11:01] LABS: AST(SGOT) 23 U/L (<=31); Alanine Aminotransfer ALT/SGPT 11 U/L (<=34); Cholesterol 168 mg/dL (<=200); High Density Lipoprotein 62 mg/dL; Low Density Lipoprotein Calc. 82 mg/dL; Triglycerides 120 mg/dL; Very Low Density Lipoprotein 24 mg/dL (5-40); cholesterol:hdl ratio screen 2.71
== END | disposition home or self-care (01) ==
LOC: MTLAB 08:02
PROVIDERS: PCP Family Medicine; Referring Provider Family Medicine; Visit Provider Family Medicine
DX: E78.00 Pure hypercholesterolemia, unspecified (principal)
CPT/HCPCS: 36415; 80061; 84450; 84460

== ENCOUNTER → 2024-11-26 | Outpatient (CLI) | payer MEDICARE, SELFPAY ==
--- NOTE | 2024-11-26 18:35 | CT_ITS ---
PROCEDURE: EXTREMITY LOWER WITHOUT CONTRA 11/26/2024 REASON FOR EXAM: RT KNEE OA, AS1 PROTOCOL TECHNIQUE: Axial CT images of the right hip, right knee, and right ankle obtained without intravenous contrast. Coronal and Sagittal reconstruction series were provided. 1 protocol. One or more dose reduction techniques were used (e.g., Automated exposure control, adjustment of the mA and/or kV according to patient size, use of iterative reconstruction technique). RADIATION DOSE SUMMARY: DLP: 1374.5 mGycm COMPARISON: None. FINDINGS: Right hip is unremarkable without fracture or dislocation. No degenerative changes. No bone lesions. Normal mineralization. Severe DJD of the medial compartment of the right knee. Moderate osteoarthritis of the patellofemoral compartment and minor degenerative change of the lateral compartment. No significant joint effusion. Varicose veins throughout the medial thigh and calf. No fracture or dislocation of the right ankle. Small calcaneal spurs are noted. No bone lesions are evident. CT/Extremity Lower without Contra IMPRESSION: Images of the right hip, knee, and ankle obtained for preoperative planning, 1 protocol. Tricompartmental osteoarthritis of the right knee, severe of the medial compartment. Reading Location[facility]
== END | disposition home or self-care (01) ==
LOC: CT 18:32
PROVIDERS: PCP Family Medicine; Referring Provider Orthopaedic Surgery; Visit Provider Orthopaedic Surgery
DX: M17.11 Unilateral primary osteoarthritis, right knee (principal)
CPT/HCPCS: 73700

== ENCOUNTER → 2024-12-08 | Outpatient (CLI) | payer MEDICARE, SELFPAY ==
--- NOTE | 2024-12-08 08:44 | EKG12_ITS ---
Test Reason : PREOP Blood Pressure : */* mmHG Vent. Rate : 74 BPM Atrial Rate : 74 BPM P-R Int : 224 ms QRS Dur : 90 ms QT Int : 360 ms P-R-T Axes : -6 -43 22 degrees QTcB Int : 399 ms Sinus rhythm with 1st degree A-V block Left axis deviation Abnormal ECG Confirmed by Tommie Ding ([id number]), editorial clerk JESUSITA GARCIA ([id number]) on 12/09/2024 9:37:00 AM Referred By: Alma Alex Confirmed By: Tommie Ding
--- NOTE | 2024-12-08 08:45 | RAD_ITS ---
EXAM: XR Chest, 2 Views CLINICAL INDICATION: PRE OP TECHNIQUE: Frontal and lateral views of the chest. COMPARISON: No relevant prior studies available. FINDINGS: LUNGS AND PLEURAL SPACES: Unremarkable. No consolidation. No pneumothorax. HEART: Unremarkable. No cardiomegaly. MEDIASTINUM: Unremarkable. Normal mediastinal contour. BONES/JOINTS: Unremarkable. No acute fracture. RAD/Chest PA and Lateral IMPRESSION: No acute cardiopulmonary process. Reading Location: [id number]
[2024-12-08 10:06] LABS: Absolute Lymphocyte Count 1.54 X10^3/uL (0.83-4.51); Absolute Neutrophil Count 2.7 X10^3/uL (2.0-7.7); Basophil# 0.03 X10^3/uL; Basophil% 0.6 % (0-1); Eosinophil# 0.19 X10^3/uL; Eosinophils% 3.8 % (0-5); Hemoglobin 12.6 g/dL (12.0-15.0); Lymphocyte # 1.54 X10^3/ul (0.83-4.51); Lymphocyte % 30.7 % (19-41); Mean Corp Hgb Conc 33.2 g/dL (32-36); Mean Corpuscular Hgb 30.8 pg (27.0-32.0); Mean Corpuscular Volume 92.9 fL (81-99); Monocyte# 0.59 X10^3/uL; Monocyte% 11.8 % (0-10); NRBC Flagged by Analyzer 0 % (0-5); Neutrophil # 2.66 X10^3/uL (2.7-7.7); Neutrophil % 52.9 % (47-70); Platelet Count 250 K/mm3 (150-450); RBC Distribution Width CV 11.9 % (11.6-14.6); RBC Distribution Width SD 41.1 fl (35.1-43.9); Red Blood Count 4.09 M/mm3 (4.2-5.4)
[2024-12-08 10:47] LABS: ALB/GLOB Ratio 1.3 RATIO (0.9-2.4); AST(SGOT) 21 U/L (<=31); Alanine Aminotransfer ALT/SGPT 14 U/L (<=34); Albumin, Serum 4.3 g/dL (3.4-4.8); Alkaline Phosphatase 88 U/L (35-104); Anion Gap 11 (5-15); BUN 18 mg/dL (4-19); BUN/Creat Ratio 24.3 RATIO (10-20); Calcium,Total 9.8 mg/dL (7.6-11.0); Carbon Dioxide 25.2 mmol/L (21.0-32.0); Chloride 101 mmol/L (98-108); Creatinine, Serum 0.72 mg/dL (0.70-1.20); EST Glomerular Filtration Rate 89 (>60); Globulin 3.2 g/dL (2.2-4.2); Glucose 87 mg/dL (70-99); Potassium 4.2 mmol/L (3.3-5.1); Protein, Total 7.6 g/dL (5.9-8.4); Sodium Level 137 mmol/L (133-145); Total Bilirubin 0.23 mg/dL (0.00-1.30)
== END | disposition home or self-care (01) ==
PROVIDERS: Referring Provider Internal Medicine Rheumatology; Visit Provider Orthopaedic Surgery
DX: Z01.811 Encounter for preprocedural respiratory examination (principal); Z01.810 Encounter for preprocedural cardiovascular examination; M17.11 Unilateral primary osteoarthritis, right knee
CPT/HCPCS: 36415; 71046; 80053; 85025; 93005

== ENCOUNTER → 2025-03-01 | Outpatient (CLI) | payer MEDICARE, SELFPAY ==
[2025-03-01 18:25] LABS: Hematocrit 36.6 % (37-47); Hemoglobin 11.7 g/dL (12.0-15.0); Immature Granulocytes Count 0.010 X10^3/uL (0.0-0.0); Mean Corp Hgb Conc 32.0 g/dL (32-36); Mean Corpuscular Volume 93.4 fL (81-99); Mean Platelet Vol. 10.3 fl (6.2-12.0); NRBC Flagged by Analyzer 0 % (0-5); Platelet Count 316 K/mm3 (150-450); RBC Distribution Width CV 12.1 % (11.6-14.6); RBC Distribution Width SD 41.2 fl (35.1-43.9); Red Blood Count 3.92 M/mm3 (4.2-5.4); White Blood Count 5.9 K/mm3 (4.4-11.0)
[2025-03-01 18:54] LABS: AST(SGOT) 23 U/L (<=31); Alanine Aminotransfer ALT/SGPT 12 U/L (<=34); Albumin, Serum 4.4 g/dL (3.4-4.8); Alkaline Phosphatase 95 U/L (35-104); Anion Gap 11 (5-15); BUN 16 mg/dL (4-19); BUN/Creat Ratio 22.6 RATIO (10-20); Calcium,Total 9.5 mg/dL (7.6-11.0); Carbon Dioxide 28.3 mmol/L (21.0-32.0); Chloride 99 mmol/L (98-108); Globulin 3.3 g/dL (2.2-4.2); Glucose 99 mg/dL (70-99); Potassium 4.2 mmol/L (3.3-5.1)
== END | disposition home or self-care (01) ==
LOC: MTLAB 14:02
PROVIDERS: PCP Family Medicine; Referring Provider Internal Medicine Rheumatology; Visit Provider Internal Medicine Rheumatology
DX: M06.4 Inflammatory polyarthropathy (principal); Z79.899 Other long term (current) drug therapy; M79.7 Fibromyalgia; M18.12 Unilateral primary osteoarthritis of first carpometacarpal joint, left hand; M19.041 Primary osteoarthritis, right hand; M19.042 Primary osteoarthritis, left hand; M17.0 Bilateral primary osteoarthritis of knee
CPT/HCPCS: 36415; 80053; 85025

== ENCOUNTER → 2025-06-03 | Outpatient (CLI) | payer MEDICARE, SELFPAY ==
[2025-06-03 14:58] LABS: Hematocrit 36.6 % (37-47); Hemoglobin 12.2 g/dL (12.0-15.0); Immature Granulocytes Count 0.010 X10^3/uL (0.0-0.0); Mean Corp Hgb Conc 33.3 g/dL (32-36); Mean Corpuscular Volume 89.1 fL (81-99); Mean Platelet Vol. 10.0 fl (6.2-12.0); NRBC Flagged by Analyzer 0 % (0-5); Platelet Count 286 K/mm3 (150-450); RBC Distribution Width CV 13.3 % (11.6-14.6); RBC Distribution Width SD 43.5 fl (35.1-43.9); Red Blood Count 4.11 M/mm3 (4.2-5.4); White Blood Count 5.2 K/mm3 (4.4-11.0)
[2025-06-03 19:14] LABS: AST(SGOT) 21 U/L (<=31); Alanine Aminotransfer ALT/SGPT 12 U/L (<=34); Albumin, Serum 4.4 g/dL (3.4-4.8); Alkaline Phosphatase 92 U/L (35-104); Anion Gap 11 (5-15); BUN 14 mg/dL (4-19); BUN/Creat Ratio 20.3 RATIO (10-20); Calcium,Total 8.9 mg/dL (7.6-11.0); Carbon Dioxide 28.5 mmol/L (21.0-32.0); Chloride 101 mmol/L (98-108); Globulin 2.8 g/dL (2.2-4.2); Glucose 46 mg/dL (70-99); Potassium 4.0 mmol/L (3.3-5.1)
== END | disposition home or self-care (01) ==
LOC: MTLAB 12:34
PROVIDERS: PCP Family Medicine; Referring Provider Internal Medicine Rheumatology; Visit Provider Internal Medicine Rheumatology
DX: M06.4 Inflammatory polyarthropathy (principal); Z79.899 Other long term (current) drug therapy; M79.7 Fibromyalgia; M18.12 Unilateral primary osteoarthritis of first carpometacarpal joint, left hand; M19.041 Primary osteoarthritis, right hand; M19.042 Primary osteoarthritis, left hand
CPT/HCPCS: 36415; 80053; 85025